=== PATIENT | female | born 1985 | race Caucasian/White ===

== ENCOUNTER 2016-07-01 00:43 | Emergency (ER) | payer OTHER ==
[~2016-07-01] VITALS: Ht 167.6 cm; Wt 83.1 kg
[2016-07-01 00:48] VITALS: TEMP 37; Ht 167.6 cm; Wt 83.1 kg
[2016-07-01 01:37] VITALS: BP 135/84; PULSE 94; O2SAT 98
--- NOTE | 2016-07-01 04:50 | EMERGENCY ROOM VISIT NOTE ---
History First contact with patient: 01:00 Chief Complaint: OTHER COMPLAINT Stated Complaint: AMNIOTIC FLUID IN MOUTH DURING DELIVERY--W/C History of Present Illness The patient is a 31 year old female who presents to the Emergency Room with complaints of bodily fluid exposure that occurred approximately 30 minutes ago. 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 She was assisting in a delivery , when amniotic fluid from the delivery splashed onto her face and into her mouth. The patient was not able to immediately remove herself from the situation due to the needing resuscitation. She was able to wash her face and flush her mouth within a few moments of the initial exposure. She did not swallow amniotic fluid. There is no exposure of the eyes or nose. The patient is up-to-date on her tetanus. She does not have additional complaints. Review of Systems More than 6 systems were reviewed and otherwise negative with the exception of history of present illness. Past Medical/Surgical History History of diabetes Family History No pertinent family history Social History Smoking Status: Never Smoker Occupation Status: employed Allergies Uncoded Allergies: NKA (Allergy, Unknown, 04/09/05) Physical Exam Vital Signs Date Time Temp Pulse Resp B/P Pulse Ox O2 Delivery O2 Flow Rate FiO2 07/01/16 01:37 94 16 135/84 98 07/01/16 00:48 37.0 123 18 139/90 96 Room Air Pain Rating (0-10): 0 Physical Exam VITALS: Vitals are noted on the nurse's note and reviewed by myself. Vital signs stable. GENERAL: Well-developed, well-nourished, white female, who is in no acute distress and resting comfortably. Patient is cooperative with the examination. HEAD: Normocephalic atraumatic. EARS: External ear normal. External auditory canals clear, tympanic membranes pearly goyal without erythema or effusion bilaterally. EYES: Pupils equal round and reactive to light and accommodation. Conjunctivae without injection, sclerae without icterus. Extraocular movements intact. NOSE: Patent, turbinates without inflammation or discharge. MOUTH: Mucous membranes moist. Tonsils are not enlarged. Pharynx without erythema, blood, or exudate. Uvula midline. Airway patent. NECK: Supple without nuchal rigidity. No lymphadenopathy. No thyromegaly. Cervical spine is nontender. HEART: Regular rate and rhythm without murmurs gallops or rubs. LUNGS: Clear to auscultation bilaterally without wheezes, rales or rhonchi. No retractions or accessory muscle use. Medical Decision & Procedures ED Course Physical exam and history were performed. Nursing notes and EMR were reviewed. Patient appears to have suffered a bodily fluid exposure. The patient had an amniotic fluid splash onto her face and mouth. The patient was able to irrigated and wash following the exposure. I discussed options of care with the patient. She does consent to HIV testing. She does not wish for postexposure prophylaxis. Appropriate paperwork and consents were signed. Blood draw was performed by the lab. The patient will need to follow with [facility] [employer] in the morning for further management. The source patient is currently under the care of Dr. Bender, and this was noted in the exposure paperwork. The patient was otherwise invited back to the ER with any new, worsening, or concerning symptoms. Her discomfort a 0/10 at the time of departure. The chart was completed utilizing [employer] Speech Voice Recognition Software. Grammatical errors, random word insertions, pronoun errors, and incomplete sentences are an occasional consequence of this system due to software limitations, ambient noise, and hardware issues. Any formal questions or concerns about the content, text, or information contained within the body of this dictation should be directly addressed to the provider for clarification. . Medical Decision Differential diagnosis includes, but is not limited to: Body fluid exposure Impression Primary Impression: Patient exposure to body fluids Departure Information Dispostion Home / Self-Care Condition GOOD Referrals Shahid [facility]on D.O.[facility]. (PCP) Forms WORK / SCHOOL INSTRUCTIONS, HOME CARE DOCUMENTATION FORM, IMPORTANT VISIT INFORMATION Patient Instructions A Signature Page, [facility] Additional Instructions You were seen and evaluated today on an emergency basis only. This is not a substitute for, or an effort to provide, complete comprehensive medical care. It is not possible to recognize and treat all injuries or illnesses in a single emergency department visit. For this reason it is recommended that you followup with Marielos Caruso of [facility] for results and further information. You are welcome to return to the emergency department anytime with new, worsening, or concerning symptoms.
[2016-07-12] MEDS ORDERED: LVMI SC (09:43)
[2016-07-12] MEDS ORDERED: GLC/500 PO (09:43)
[2016-07-12] MEDS ORDERED: NXM/40 PO (09:43)
[2016-07-12] MEDS ORDERED: INSU100I2 SC (09:43)
[2016-07-12] MEDS ORDERED: CYAN100020 PO (09:43)
[2016-07-12] MEDS ORDERED: CHOL100010 PO (09:43)
[2016-07-12] MEDS ORDERED: CHOL2000 PO (09:43)
== END 2016-07-01 01:38 | disposition home or self-care (01) ==
LOC: C.EDB 00:44 → C.EDA 01:38
DX: Z77.21 Contact with and (suspected) exposure to potentially hazardous body fluids (principal); E11.9 Type 2 diabetes mellitus without complications

== ENCOUNTER → 2016-07-10 | Outpatient (CLI) | payer OTHER ==
[~2016-07-10] MED LIST: CHOL100010 PO; CHOL2000 PO; CITA10TA8 PO; CITA20TA9 PO; CYAN100020 PO; GLC/500 PO; INSU100I2 SC; LVMI SC; NXM/40 PO; PROM25TA9 PO
--- NOTE | 2016-07-10 11:15 | DIAGNOSTIC IMAGING REPORT ---
BILIARY ULTRASOUND CLINICAL HISTORY: R10.13 Epigastric [id number] COMPARISON STUDY: No previous studies for comparison. FINDINGS: The pancreas appears normal as visualized. No hepatic masses are visualized. There is no ductal dilatation. The gallbladder appears sonographically normal. There is no right-sided hydronephrosis. The common bile duct measures 5 mm. IMPRESSION: Normal biliary ultrasound. Electronically signed by: Gaston Keen M.D. 07/10/2016 11:13 AM Dictated Date/Time: 07/10/2016 11:12 AM
== END | disposition home or self-care (01) ==
LOC: C.ULTRBC 10:22
PROVIDERS: ATTEND Family Medicine
DX: R10.13 Epigastric pain (principal)

== ENCOUNTER → 2016-07-15 | Day surgery (SDC) | payer OTHER ==
[2016-07-12 09:44] VITALS: Ht 170.2 cm; Wt 81.8 kg
[~2016-07-15] VITALS: Ht 170.2 cm; Wt 81.8 kg
[~2016-07-15] MED LIST changes: +ATROPINE SULFATE 0.1 MG/ML 5ML SYR IV PRN; +EpHEDrine SULFATE INJ 50 MG/ML AMP IV PRN; +LIDOCAINE HCL 2% 2 ML VIAL (20MG/ML) ONE; +ONDANSETRON INJ 2 MG/ML 2 ML VIAL ONE; +PROPOFOL IV EMULSION 10 MG/ML 20 ML VIAL IV ONE; +SODIUM CHLORIDE 0.9% 500ML 500 ML IV ONE
--- NOTE | 2016-07-15 12:07 | Endo History and Physical ---
History & Physical Date of Service: Jul 15, 2016. Chief Complaint: Epigastric abdominal pain Referring Physician: Talita History of Present Illness 31 yo CF who presents for EGD secondary to epigastric abdominal pain. Past Surgical History Hx Cardiac Surgery: No Hx Internal Defibrillator: No Hx Pacemaker: No Hx Abdominal Surgery: No Hx of Implantable Prosthesis: No Hx Post-Op Nausea and Vomiting: No Hx Cancer Surgery: No Hx Thoracic Surgery: No Hx Orthopedic: No Hx Urinary Tract Surgery: No Family History Colon CA Social History Smoking Status: Never Smoker Hx Substance Use: No Hx Alcohol Use: Yes (RARELY) Allergies Coded Allergies: Doxycycline (Verified Allergy, Unknown, GI UPSET, 07/15/16) Current Medications Reported Home Medications Medications Dose Route/Sig Max Daily Dose Days Date Category Dose Instructions Nexium (Esomeprazole Magnesium) 40 Mg Capcr 40 Mg PO QAM 07/12/16 Reported Vitamin B12 (Cyanocobalamin) 1,000 Mcg Tab 1 Tab PO QAM 07/12/16 Reported Vitamin D3 (Cholecalciferol) 2,000 Unit Cap 1 Cap PO QAM 90 07/12/16 Reported Humalog Kwikpen (Insulin Lispro (Human)) 100 Unit/Ml Inj 1 Dose SC AC 07/12/16 Reported USING SLIDING SCALE Levemir (Insulin Detemir) 100 Units/Ml Inj 8 Units SC HS 07/12/16 Reported Glucophage (Metformin Hcl) 500 Mg Tab 2 Tab PO BID 07/12/16 Reported Vital Signs Weight (Kilograms): 81.82 Height (Feet): 5 Height (Inches): 7 Date Time Temp Pulse Resp B/P Pulse Ox O2 Delivery O2 Flow Rate FiO2 07/15/16 11:52 37.1 101 20 115/87 100 Room Air Physical Exam General Appearance: WD/WN, no apparent distress Respiratory/Chest: Auscultation: breath sounds normal Cardiovascular: Heart Auscultation: RRR Abdomen: Bowel Sounds: normal Inspection & Palpation: soft, non-distended, no tenderness, guarding & rebound Assessment and Plan Assessment: 31 yo CF who presents for EGD secondary to epigastric abdominal pain. Plan: Proceed with EGD.
--- NOTE | 2016-07-15 12:36 | Discharge Instructions ---
Endoscopy Patient Instructions Date / Procedure(s) Performed Jul 15, 2016. EGD Allergy Information Coded Allergies: Doxycycline (Verified Adverse Reaction, Unknown, GI UPSET, 07/15/16) Discharge Date / Findings Jul 15, 2016. Normal EGD with biopsies of the gastric antrum and duodenum Medication Instructions Stopped Medication(s): metformin-last dose on friday OK to resume all medications today as prescribed. Reported Home Medications Medications Dose Route/Sig Max Daily Dose Days Date Category Dose Instructions Nexium (Esomeprazole Magnesium) 40 Mg Capcr 40 Mg PO QAM 07/12/16 Reported Vitamin B12 (Cyanocobalamin) 1,000 Mcg Tab 1 Tab PO QAM 07/12/16 Reported Vitamin D3 (Cholecalciferol) 2,000 Unit Cap 1 Cap PO QAM 90 07/12/16 Reported Humalog Kwikpen (Insulin Lispro (Human)) 100 Unit/Ml Inj 1 Dose SC AC 07/12/16 Reported USING SLIDING SCALE Levemir (Insulin Detemir) 100 Units/Ml Inj 8 Units SC HS 07/12/16 Reported Glucophage (Metformin Hcl) 500 Mg Tab 2 Tab PO BID 07/12/16 Reported Provider Instructions Activity Restrictions - No exercising or heavy lifting for 24 hours. - Do not drink alcohol the day of the procedure. - Do not drive a car or operate machinery until the day after the procedure. - Do not make any important decisions or sign important papers in 24 hours after the procedure. Following Day: - Return to full activity which may include returning to work/school. Diet Start your diet with liquids and light foods (jello, soup, juice, toast). Then eat your usual diet if not nauseated. Treatment For Common After Affects For mild abdominal pain, bloating, or excessive gas: - Rest - Eat lightly - Lie on right side Follow-Up Information Follow-up with [facility] as scheduled Anesthesia Information What You Should Know You have had a procedure that required some medicine to reduce anxiety and discomfort. This treatment is called moderate sedation. After receiving the treatment, you may be sleepy, but you will be able to breathe on your own. The effects of the treatment may last for several hours. Follow these instructions along with Activity/Diet recommendations noted above: * Do NOT do anything where dizziness or clumsiness would be dangerous. * Rest quietly at home today, then you can be up and about tomorrow. * Have a responsible person stay with you the rest of today. * You may have had an I.V. today. If so, you may take the dressing off later today. Recommendations Call your doctor if: * Trouble breathing * Continuous vomiting for more than 24 hours * Temperature above 101 degrees * Severe abdominal pain or bloating * Pain not relieved by pain medicine ordered * There is increased drainage or redness from any incision * A large amount of rectal bleeding greater than 2-3 tablespoons. (If you had a polyp/s removed or have hemorrhoids, a small amount of blood - from the rectum is to be expected.) * You have any unanswered questions or concerns. IN THE EVENT OF A SERIOUS EMERGENCY, GO TO THE NEAREST EMERGENCY ROOM Your discharge instructions were prepared by provider Andry Varela. Patient Instructions Signature Page Verito Olivares Patient (or Guardian) Signature/Date: I have read and understand the instructions given to me by my caregivers. Caregiver/RN/Doctor Signature/Date: The above-named patient and/or guardian has received patient instructions on this date. + Original Patient Signature Page (only) stays with chart. Please make copy for patient.
--- NOTE | 2016-07-15 12:40 | GI REPORT ---
Procedure Date: 07/15/2016 12:10 PM Procedure: Upper GI endoscopy Indications: Epigastric abdominal pain, Nausea Medicines: Monitored Anesthesia Care Complications: No immediate complications. Estimated Blood Loss: Estimated blood loss: none. Procedure: Pre-Anesthesia Assessment: - Prior to the procedure, a History and Physical was performed, and patient medications and allergies were reviewed. The patient's tolerance of previous anesthesia was also reviewed. The risks and benefits of the procedure and the sedation options and risks were discussed with the patient. All questions were answered, and informed consent was obtained. Prior Anticoagulants: The patient has taken no previous anticoagulant or antiplatelet agents. ASA Grade Assessment: II - A patient with mild systemic disease. After reviewing the risks and benefits, the patient was deemed in satisfactory condition to undergo the procedure. After obtaining informed consent, the endoscope was passed under direct vision. Throughout the procedure, the patient's blood pressure, pulse, and oxygen saturations were monitored continuously. The scope was introduced through the mouth, and advanced to the second part of duodenum. The upper GI endoscopy was accomplished without difficulty. The patient tolerated the procedure well. Findings: The examined esophagus was normal. The entire examined stomach was normal. Biopsies were taken with a cold forceps for Helicobacter pylori testing. The examined duodenum was normal. Biopsies for histology were taken with a cold forceps for evaluation of celiac disease. Impression: - Normal esophagus. - Normal stomach. Biopsied. - Normal examined duodenum. Biopsied. Recommendation: - Resume previous diet. - Continue present medications. - Await pathology results. - Return to primary care physician as previously scheduled. Andry Varela DO 07/15/2016 12:38:53 PM This report has been signed electronically. Note Initiated On: 07/15/2016 12:10 PM
--- NOTE | 2016-07-15 13:00 | Anesthesiology Progress Note ---
Anesthesia Post Op Note Date & Time Jul 15, 2016 at 12:59 Vital Signs Pain Intensity: 0 Vital Signs Past 12 Hours Date Time Temp Pulse Resp B/P Pulse Ox O2 Delivery O2 Flow Rate FiO2 07/15/16 11:52 37.1 101 20 115/87 100 Room Air Notes Mental Status: alert / awake / arousable, participated in evaluation Pt Amnestic to Procedure: Yes Nausea / Vomiting: adequately controlled Pain: adequately controlled Airway Patency, RR, SpO2: stable & adequate BP & HR: stable & adequate Hydration State: stable & adequate Anesthetic Complications: no major complications apparent
[2016-07-15 13:10] VITALS: BP 116/73; PULSE 87; O2SAT 97
== END | disposition home or self-care (01) ==
LOC: C.GI 11:30
PROVIDERS: ATTEND Internal Medicine
DX: K29.50 Unspecified chronic gastritis without bleeding (principal); R10.13 Epigastric pain; R14.0 Abdominal distension (gaseous); Z80.0 Family history of malignant neoplasm of digestive organs

== ENCOUNTER → 2016-09-03 | Outpatient (CLI) | payer OTHER ==
[~2016-09-03] MED LIST changes: -ATROPINE SULFATE 0.1 MG/ML 5ML SYR IV PRN; -CHOL100010 PO; -EpHEDrine SULFATE INJ 50 MG/ML AMP IV PRN; -LIDOCAINE HCL 2% 2 ML VIAL (20MG/ML) ONE; -ONDANSETRON INJ 2 MG/ML 2 ML VIAL ONE; -PROPOFOL IV EMULSION 10 MG/ML 20 ML VIAL IV ONE; -SODIUM CHLORIDE 0.9% 500ML 500 ML IV ONE
[2016-09-03 10:11] LABS: ESTIMATED AVERAGE GLUCOSE 126 mg/dl; HA1C FLAG Normal (Normal)
== END | disposition home or self-care (01) ==
LOC: C.LAB1850 07:32
PROVIDERS: ATTEND Internal Medicine Endocrinology, Diabetes & Metabolism
DX: E10.9 Type 1 diabetes mellitus without complications (principal)

== ENCOUNTER 2016-09-26 05:42 | Emergency (ER) | payer OTHER ==
[~2016-09-26] VITALS: Ht 170.2 cm; Wt 74.3 kg
[~2016-09-26 05:42] MED LIST changes: -CITA10TA8 PO; -CITA20TA9 PO; -PROM25TA9 PO
[2016-09-26 05:50] VITALS: Ht 170.2 cm; Wt 74.3 kg
[2016-09-26] MEDS ORDERED: SODIUM CHLORIDE 0.9% 1000ML 2,000 ML IV STA (06:06)
[2016-09-26] MEDS ORDERED: ONDANSETRON INJ 2 MG/ML 2 ML VIAL IV STA ×2 (06:06→07:02)
[2016-09-26 06:38] LABS: BASO % 0.2 %; BASO ABS # 0.03 K/uL (0-0.2); COMPLETE YES; EOS % 0.1 %; HEMATOCRIT 42.3 % (37-47); IG% 0.3 %; LYMPH % 4.6 %; LYMPH ABS # 0.67 K/uL (1.2-3.4); MEAN CELL VOLUME 91.6 fL (80-100); MEAN CORPUSCULAR HEMOGLOBIN 31.8 pg (25-34); MEAN CORPUSCULAR HGB CONC 34.8 g/dl (32-36); MEAN PLATELET VOLUME 10.2 fL (7.4-10.4); MONO % 2.9 %; NEUT % 91.9 %; PLATELET COUNT 347 K/uL (130-400); RED BLOOD COUNT 4.62 M/uL (4.2-5.4); WHITE BLOOD COUNT 14.64 K/uL (4.8-10.8)
[2016-09-26] MEDS ORDERED: CITA10TA8 PO (06:47)
[2016-09-26 06:57] LABS: BUN/CREATININE RATIO 31.7 (10-20); CALCIUM 8.6 mg/dl (8.5-10.1); CREATININE 0.75 mg/dl (0.60-1.20); MAGNESIUM 1.9 mg/dl (1.8-2.4); POTASSIUM 3.8 mmol/L (3.5-5.1)
--- NOTE | 2016-09-26 07:00 | DIAGNOSTIC IMAGING REPORT ---
ABDOMEN 2VIEW W/PA CHEST RTN CLINICAL HISTORY: Nausea, vomiting, diarrhea, abdominal pain. COMPARISON STUDY: No previous studies for comparison. FINDINGS: The erect chest reveals no evidence of free air. There is no evidence of focal pulmonary consolidation.] Erect and supine views of the abdomen reveal no abnormally dilated loops of large or small bowel. There are no transition zone to indicate bowel obstruction. There is scattered colonic air-fluid levels. This is a nonspecific finding but may indicate a diarrheal state. IMPRESSION: No evidence of bowel obstruction. No evidence of free air. Electronically signed by: Gaston Keen M.D. 09/26/2016 6:59 AM Dictated Date/Time: 09/26/2016 6:58 AM
[2016-09-26 07:09] LABS: ALB/GLOB RATIO 1.4 (0.9-2); THYROID STIMULATING HORMONE 1.01 uIu/ml (0.300-4.500)
[2016-09-26] MEDS ORDERED: KETOROLAC TROMETHAMINE 30 MG/ML VIAL IV STA (07:13)
[2016-09-26 07:35] LABS: URINE APPEARANCE CLOUDY (CLEAR); URINE COLOR DK YELLOW; URINE EPITHELIAL CELL AUTO >30 /lpf (0-5); URINE NITRITE NEG (NEG); URINE PH 5.5 (4.5-7.5); URINE SPECIFIC GRAVITY 1.035 (1.000-1.030); UROBILINOGEN NEG (NEG); ZZUR CULT IF INDIC CLEAN CATCH YES
[2016-09-26 07:42] LABS: MANUAL MICROSCOPIC REQUIRED? NO; REVIEW REQ? YES; URINE BILIRUBIN NEG (NEG)
[2016-09-26] MEDS ORDERED: SODIUM CHLORIDE 0.9% 1000ML 1,000 ML IV STA (07:44)
[2016-09-26 07:55] LABS: URINE MUCUS PRESENT (NONE PRSENT)
[2016-09-26] MEDS ORDERED: PANTOprazole INJ 40 MG in SYRINGE 0 ML IV ONE (08:00)
--- NOTE | 2016-09-26 08:07 | EMERGENCY ROOM VISIT NOTE ---
History First contact with patient: 05:58 Chief Complaint: FLU LIKE SX Stated Complaint: NAUSEA,VOMITING,DIARRHEA History of Present Illness The patient is a 31 year old female who presents to the Emergency Department by private vehicle for evaluation of her nausea, vomiting, diarrhea, and abdominal pain. She also reports body aches and pains. She's been lightheaded as well. Her symptoms started at 3 PM yesterday with bloating and cramping in her abdomen. She has since developed nausea, vomiting, and diarrhea. She does have history of diabetes. She did not take her metformin or insulin yesterday as she was concerned that her blood sugars would be running too low from decreased by mouth intake. Her blood sugars have actually been running in the 130s which is high for her. She denies any previous abdominal surgeries. She does report history of gastritis for which she had an EGD within the past year. The patient rates her current discomfort is 7/10. She tried oral Zofran today , but she reports vomiting medication back up. The patient denies any fevers, chills, headaches, chest pain, palpitations, short of breath, hematochezia, melena, hematuria, or dysuria. She took a test yesterday which was negative. Review of Systems A complete 10-point Review of Systems was discussed with the patient, with pertinent positives and negatives listed in the History of Present Illness. All remaining Review of Systems questions can be considered negative unless otherwise specified. Social History Smoking Status: Never Smoker Smokeless Tobacco Use: No Alcohol Use: none Drug Use: none Marital Status: Housing Status: lives with significant other Occupation Status: employed Current/Historical Medications Scheduled Cholecalciferol (Vitamin D3), 1 CAP PO QAM Citalopram Hydrobromide (Celexa), 10 MG PO DAILY Cyanocobalamin (Vitamin B12), 1 TAB PO QAM Esomeprazole Magnesium (Nexium), 40 MG PO QAM Insulin Detemir (Levemir), 8 UNITS SC HS Insulin Lispro (Human) (Humalog Kwikpen), 1 DOSE SC AC Metformin Hcl (Glucophage), 2 TAB PO BID Allergies Coded Allergies: Doxycycline (Verified Adverse Reaction, Unknown, GI UPSET, 09/26/16) Physical Exam Vital Signs Date Time Temp Pulse Resp B/P Pulse Ox O2 Delivery O2 Flow Rate FiO2 09/26/16 07:13 125 18 101/51 96 Room Air 09/26/16 05:50 36.8 141 20 107/66 97 Room Air Pain Rating (0-10): 7 Physical Exam VITAL SIGNS - Vital signs and nursing notes were reviewed. GENERAL - 31-year-old female appearing her stated age who is in no acute distress. Communicates well with provider and answers questions appropriately. HEAD - NC/AT. EYES - PERRL with EOMI bilaterally. Sclera anicteric. Palpebral conjunctiva pink and moist with no injection noted. EARS - No deformities of external structures noted on gross examination bilaterally. No pain elicited with palpation of the tragus bilaterally. External auditory canals without discharge or otorrhea. Tympanic membranes pearly goyal without retraction or bulging. NOSE - Midline and without cyanosis. No epistaxis or purulent drainage noted. Septum midline without deviation or septal hematoma noted. MOUTH/OROPHARYNX - Without perioral cyanosis. Buccal mucosa pink and moist and without leukoplakia. Tongue midline with equal elevation of palate bilaterally. No tonsillar hypertrophy, erythema, or exudates noted. dentition noted. NECK - Neck with FROM. Supple to palpation. No nuchal rigidity. LUNGS - Chest wall symmetric without accessory muscle use, intercostals retractions, or central cyanosis. Normal vesicular breath sounds CTA B/L. No wheezes, rales, or rhonchi appreciated. CARDIAC - RRR with S1/S2. No murmur, rubs, or gallops appreciated. ABDOMEN - Abdominal contour flat and without pulsations or visible masses. BS normoactive all four quadrants. No tenderness to palpation appreciated throughout. No guarding. No Rebound Tenderness. Negative Rovsing's. Negative Caldwell's. No palpable masses, hepatosplenomegaly, or ascites noted. PSYCH - A&Ox3 and cooperates fully with examiner. Pt is very pleasant and interacts well with examiner. Medical Decision & Procedures ER Provider Diagnostic Interpretation: Radiological imaging and reports were reviewed by myself. Radiologist's Interpretation as follows: ABDOMEN 2VIEW W/PA CHEST RTN CLINICAL HISTORY: Nausea, vomiting, diarrhea, abdominal pain. COMPARISON STUDY: No previous studies for comparison. FINDINGS: The erect chest reveals no evidence of free air. There is no evidence of focal pulmonary consolidation.] Erect and supine views of the abdomen reveal no abnormally dilated loops of large or small bowel. There are no transition zone to indicate bowel obstruction. There is scattered colonic air-fluid levels. This is a nonspecific finding but may indicate a diarrheal state. IMPRESSION: No evidence of bowel obstruction. No evidence of free air. Laboratory Results 09/26/16 05:30 Red Blood Count 4.62, Mean Corpuscular Volume 91.6, Mean Corpuscular Hemoglobin 31.8, Mean Corpuscular Hemoglobin Concent 34.8, Mean Platelet Volume 10.2, Neutrophils (%) (Auto) 91.9, Lymphocytes (%) (Auto) 4.6, Monocytes (%) (Auto) 2.9, Eosinophils (%) (Auto) 0.1, Basophils (%) (Auto) 0.2, Neutrophils # (Auto) 13.46, Lymphocytes # (Auto) 0.67, Monocytes # (Auto) 0.42, Eosinophils # (Auto) 0.02, Basophils # (Auto) 0.03 09/26/16 05:30 Test 09/26/16 05:30 09/26/16 06:06 09/26/16 06:30 White Blood Count 14.64 K/uL (4.8-10.8) Red Blood Count 4.62 M/uL (4.2-5.4) Hemoglobin 14.7 g/dL (12.0-16.0) Hematocrit 42.3 % (37-47) Mean Corpuscular Volume 91.6 fL (80-100) Mean Corpuscular Hemoglobin 31.8 pg (25-34) Mean Corpuscular Hemoglobin Concent 34.8 g/dl (32-36) Platelet Count 347 K/uL (130-400) Mean Platelet Volume 10.2 fL (7.4-10.4) Neutrophils (%) (Auto) 91.9 % Lymphocytes (%) (Auto) 4.6 % Monocytes (%) (Auto) 2.9 % Eosinophils (%) (Auto) 0.1 % Basophils (%) (Auto) 0.2 % Neutrophils # (Auto) 13.46 K/uL (1.4-6.5) Lymphocytes # (Auto) 0.67 K/uL (1.2-3.4) Monocytes # (Auto) 0.42 K/uL (0.11-0.59) Eosinophils # (Auto) 0.02 K/uL (0-0.5) Basophils # (Auto) 0.03 K/uL (0-0.2) RDW Standard Deviation 39.6 fL (36.4-46.3) RDW Coefficient of Variation 11.7 % (11.5-14.5) Immature Granulocyte % (Auto) 0.3 % Immature Granulocyte # (Auto) 0.04 K/uL (0.00-0.02) Anion Gap 11.0 mmol/L (3-11) Est Creatinine Clear Calc Drug Dose 116.5 ml/min Estimated GFR () 124.8 Estimated GFR (Non- 107.7 BUN/Creatinine Ratio 31.7 (10-20) Calcium Level 8.6 mg/dl (8.5-10.1) Magnesium Level 1.9 mg/dl (1.8-2.4) Total Bilirubin 0.6 mg/dl (0.2-1) Aspartate Amino Transf (AST/SGOT) 22 U/L (15-37) Alanine Aminotransferase (ALT/SGPT) 40 U/L (12-78) Alkaline Phosphatase 73 U/L (45-117) Total Protein 8.6 gm/dl (6.4-8.2) Albumin 5.0 gm/dl (3.4-5.0) Globulin 3.6 gm/dl (2.5-4.0) Albumin/Globulin Ratio 1.4 (0.9-2) Lipase 103 U/L (73-393) Thyroid Stimulating Hormone (TSH) 1.010 uIu/ml (0.300-4.500) Urine Color DK YELLOW Urine Appearance CLOUDY (CLEAR) Urine pH 5.5 (4.5-7.5) Urine Specific [place] 1.035 (1.000-1.030) Urine Protein 2+ (NEG) Urine Glucose (UA) NEG (NEG) Urine Ketones 4+ (NEG) Urine Occult Blood NEG (NEG) Urine Nitrite NEG (NEG) Urine Bilirubin NEG (NEG) Urine Urobilinogen NEG (NEG) Urine Leukocyte Esterase NEG (NEG) Urine WBC (Auto) 5-10 /hpf (0-5) Urine RBC (Auto) 0-4 /hpf (0-4) Urine Hyaline Casts (Auto) >30 /lpf (0-5) Urine Epithelial Cells (Auto) >30 /lpf (0-5) Urine Bacteria (Auto) 2+ (NEG) Urine Renal Epithelial Cells /lpf (0-5) Urine Pathogenic Casts /lpf (0) Urine Mucus PRESENT (NONE PRSENT) Medications Administered Medications (Trade) Dose Ordered Sig/Amie Route Start Time Stop Time Status Last Admin Dose Admin Sodium Chloride (Nss 1000ml) 2,000 ml @ 999 mls/hr Q2H1M STAT IV 09/26/16 06:06 09/26/16 08:06 09/26/16 06:33 999 MLS/HR Ondansetron HCl (Zofran Inj) 4 mg NOW STAT IV 09/26/16 06:06 09/26/16 06:09 DC 09/26/16 06:33 4 MG Ondansetron HCl (Zofran Inj) 4 mg NOW STAT IV 09/26/16 07:02 09/26/16 07:03 DC 09/26/16 07:11 4 MG Ketorolac Tromethamine (Toradol Inj) 30 mg NOW STAT IV 09/26/16 07:13 09/26/16 07:14 DC 09/26/16 07:22 30 MG ED Course Patient was seen and evaluated by myself. Labs were drawn, saline lock in place. The patient was hydrated with a 2000 mL normal saline bolus. She received IV Zofran. Obstruction series was obtained. Laboratory results demonstrate a mild leukocytosis. The patient is not anemic. There are no significant electrolyte abnormalities. Urinalysis demonstrated plus for ketones. She was hydrated with an additional 1000 mL normal saline. The patient was reevaluated and reports persistent nausea. She was treated with an additional 4 mg Zofran and IV Protonix as well as IV Toradol. Patient was educated on laboratory results and imaging studies. At this time, the patient is pending continued hydration. The patient was signed out to RAJESH Nova pending IV hydration. Please refer to his note for disposition and planning. Medical Decision Given the patient's presentation and exam findings, I did elect to perform the above-mentioned workup. The patient presents today with nausea, vomiting, and diarrhea. She has no fever. She does have a mild leukocytosis. Her abdomen is soft and nontender to palpation. The patient does have a history of diabetes. Addition, she presents with a gastroenteritis. She is unable to provide a stool sample while in the emergency department. She does not appear to be acidotic per labs. Her urine does demonstrate plus for ketones. She is likely dehydrated secondary to an acute gastroenteritis. Her leukocytosis is likely secondary to stress from this infection. She does not appear to be in DKA. The patient was copiously hydrated. She is pending fluid hydration as well as being evaluated for persistent nausea. Please refer to my colleagues note for disposition and plan. IMPRESSION: Lower Abdominal Pain In the evaluation and treatment of this patient, the following differential diagnoses were considered: Appendicitis, Diverticulitis, Diverticulosis, Colitis , Ischemic Colitis, Inflammatory Bowel Disease, Irritable Bowel Disease, Ovarian Torsion, , DKA Kidney Stone, Pyelonephritis, Hydronephrosis, Cholecystitis, Ascending Cholangitis, Choledocholithiasis, GERD. Impression Primary Impression: Nausea vomiting and diarrhea Departure Information Dispostion Still a Patient Condition GOOD Referrals Shahid Sanon, Winsome.[facility].Int[facility]. (PCP) Patient Instructions My [facility]
[2016-09-26] MEDS ORDERED: PROMETHAZINE HCL INJ 25 MG in SODIUM CHLORIDE 0.9% 50ML 50 ML IV STA (08:52)
[2016-09-26] MEDS ORDERED: MoRPHine SULFATE 4 MG/ML 1 ML CARP\\VIAL IV STA (08:52)
[2016-09-26 09:09] VITALS: TEMP 37
[2016-09-26] MEDS ORDERED: PROM25TA9 PO (10:10)
[2016-09-26 10:32] VITALS: BP 108/51; PULSE 109; O2SAT 96
--- NOTE | 2016-09-26 12:15 | EMERGENCY ROOM VISIT NOTE ---
ED Visit Note First contact with patient: 08:10 31-year-old female whose care was transferred to nc from Ruddy Cormier PA-C at change of shift. The patient presents with complaint of nausea, vomiting and diarrhea. At the time of transfer of care, the patient was being treated for symptoms with IV hydration. Labs were reviewed: Results Past 24 Hours Test 09/26/16 05:30 09/26/16 06:30 Range/Units White Blood Count 14.64 4.8-10.8 K/uL Red Blood Count 4.62 4.2-5.4 M/uL Hemoglobin 14.7 12.0-16.0 g/dL Hematocrit 42.3 37-47 % Mean Corpuscular Volume 91.6 80-100 fL Mean Corpuscular Hemoglobin 31.8 25-34 pg Mean Corpuscular Hemoglobin Concent 34.8 32-36 g/dl Platelet Count 347 130-400 K/uL Mean Platelet Volume 10.2 7.4-10.4 fL Neutrophils (%) (Auto) 91.9 % Lymphocytes (%) (Auto) 4.6 % Monocytes (%) (Auto) 2.9 % Eosinophils (%) (Auto) 0.1 % Basophils (%) (Auto) 0.2 % Neutrophils # (Auto) 13.46 1.4-6.5 K/uL Lymphocytes # (Auto) 0.67 1.2-3.4 K/uL Monocytes # (Auto) 0.42 0.11-0.59 K/uL Eosinophils # (Auto) 0.02 0-0.5 K/uL Basophils # (Auto) 0.03 0-0.2 K/uL RDW Standard Deviation 39.6 36.4-46.3 fL RDW Coefficient of Variation 11.7 11.5-14.5 % Immature Granulocyte % (Auto) 0.3 % Immature Granulocyte # (Auto) 0.04 0.00-0.02 K/uL Sodium Level 137 136-145 mmol/L Potassium Level 3.8 3.5-5.1 mmol/L Chloride Level 102 98-107 mmol/L Carbon Dioxide Level 24 21-32 mmol/L Anion Gap 11.0 3-11 mmol/L Blood Urea Nitrogen 24 7-18 mg/dl Creatinine 0.75 0.60-1.20 mg/dl Est Creatinine Clear Calc Drug Dose 116.5 ml/min Estimated GFR () 124.8 Estimated GFR (Non- 107.7 BUN/Creatinine Ratio 31.7 10-20 Random Glucose 171 70-99 mg/dl Calcium Level 8.6 8.5-10.1 mg/dl Magnesium Level 1.9 1.8-2.4 mg/dl Total Bilirubin 0.6 0.2-1 mg/dl Aspartate Amino Transf (AST/SGOT) 22 15-37 U/L Alanine Aminotransferase (ALT/SGPT) 40 12-78 U/L Alkaline Phosphatase 73 45-117 U/L Total Protein 8.6 6.4-8.2 gm/dl Albumin 5.0 3.4-5.0 gm/dl Globulin 3.6 2.5-4.0 gm/dl Albumin/Globulin Ratio 1.4 0.9-2 Lipase 103 73-393 U/L Thyroid Stimulating Hormone (TSH) 1.010 0.300-4.500 uIu/ml Urine Color DK YELLOW Urine Appearance CLOUDY CLEAR Urine pH 5.5 4.5-7.5 Urine Specific [place] 1.035 1.000-1.030 Urine Protein 2+ NEG Urine Glucose (UA) NEG NEG Urine Ketones 4+ NEG Urine Occult Blood NEG NEG Urine Nitrite NEG NEG Urine Bilirubin NEG NEG Urine Urobilinogen NEG NEG Urine Leukocyte Esterase NEG NEG Urine WBC (Auto) 5-10 0-5 /hpf Urine RBC (Auto) 0-4 0-4 /hpf Urine Hyaline Casts (Auto) >30 0-5 /lpf Urine Epithelial Cells (Auto) >30 0-5 /lpf Urine Bacteria (Auto) 2+ NEG Urine Renal Epithelial Cells 0-5 /lpf Urine Pathogenic Casts 0 /lpf Urine Mucus PRESENT NONE PRSENT Urine Test NEG NEG Microbiology Results 09/26/16 Urine Culture, Received Pending Abdomen instructions series was also performed and was normal: ABDOMEN 2VIEW W/PA CHEST RTN CLINICAL HISTORY: Nausea, vomiting, diarrhea, abdominal pain. COMPARISON STUDY: No previous studies for comparison. FINDINGS: The erect chest reveals no evidence of free air. There is no evidence of focal pulmonary consolidation.] Erect and supine views of the abdomen reveal no abnormally dilated loops of large or small bowel. There are no transition zone to indicate bowel obstruction. There is scattered colonic air-fluid levels. This is a nonspecific finding but may indicate a diarrheal state. IMPRESSION: No evidence of bowel obstruction. No evidence of free air. The patient did request something more for pain and nausea after I assumed care. The patient was administered morphine 4 mg and Phenergan 25 mg IVP. The patient did have improvement of her symptoms, and felt well enough to go home. The patient was provided additional verbal and written instructions, including liquid diet, slowly advancing as tolerated. The patient was provided a prescription for Phenergan to prevent nausea. She was instructed to follow-up with her PCP if symptoms are not improving within the next 2-3 days. Return to the emergency department for inability to remain hydrated or persistent vomiting. The patient was happy with plan of care, and voiced understanding of all discharge instructions. MEDICAL DECISION MAKING: Patient presents with shortness of nausea, vomiting and diarrhea. The speck gastroenteritis. Remaining labs are not suggestive of hepatitis, cholecystitis or pancreatitis. X-rays do not show any evidence for obstruction or free air. Abdomen exam is benign, therefore I do not suspect a surgical abdomen. DIAGNOSIS: Gastroenteritis
== END 2016-09-26 10:34 | disposition home or self-care (01) ==
LOC: C.EDB 05:43 → C.EDA 10:34
DX: K52.9 Noninfective gastroenteritis and colitis, unspecified (principal); D72.829 Elevated white blood cell count, unspecified; R11.0 Nausea; E11.9 Type 2 diabetes mellitus without complications; Z79.4 Long term (current) use of insulin; Z79.84 Long term (current) use of oral hypoglycemic drugs; Z88.8 Allergy status to other drugs, medicaments and biological substances

== ENCOUNTER → 2016-10-14 | Outpatient (CLI) | payer OTHER ==
[~2016-10-14] MED LIST changes: +CITA10TA8 PO; +CITA20TA9 PO; +PROM25TA9 PO
[2016-10-14 10:05] LABS: BLOOD UREA NITROGEN 15 mg/dl (7-18); CALCIUM 8.3 mg/dl (8.5-10.1); CARBON DIOXIDE 28 mmol/L (21-32); CHLORIDE 107 mmol/L (98-107); CREATININE 0.57 mg/dl (0.60-1.20); GLUCOSE 77 mg/dl (70-99); POTASSIUM 3.9 mmol/L (3.5-5.1); SODIUM 144 mmol/L (136-145)
[2016-10-14 10:10] LABS: ALB/GLOB RATIO 1.3 (0.9-2); ALKALINE PHOSPHATASE 44 U/L (45-117); ALT/SGPT 20 U/L (12-78); AST/SGOT 11 U/L (15-37); CHOLESTEROL 157 mg/dl (0-200); CHOLESTEROL/HDL RATIO 3.7; HDL CHOLESTEROL 43 mg/dl; LDL CHOLESTEROL CALCULATED 97 mg/dl; TRIGLYCERIDES 84 mg/dl (0-150); VERY LOW DENSITY LIPOPROT CALC 17 mg/dl
== END | disposition home or self-care (01) ==
LOC: C.LAB 07:11
PROVIDERS: ATTEND Family Medicine
DX: E10.9 Type 1 diabetes mellitus without complications (principal); E78.5 Hyperlipidemia, unspecified

== ENCOUNTER 2016-11-01 13:25 | Emergency (ER) | payer OTHER ==
[~2016-11-01] VITALS: Ht 170.2 cm; Wt 77.0 kg
[~2016-11-01 13:25] MED LIST changes: -CITA20TA9 PO
[2016-11-01 13:31] VITALS: Ht 170.2 cm; Wt 77.0 kg
[2016-11-01 14:22] VITALS: BP 125/80; PULSE 90; TEMP 36.6; O2SAT 97
--- NOTE | 2016-11-02 18:31 | EMERGENCY ROOM VISIT NOTE ---
ED Visit Note First contact with patient: 13:38 Chief Complaint: I stuck myself with a pair of scissors. History of Present Illness: Ms. Wick is a 31-year-old white female who ambulates into the emergency department with complaints of injuring herself on a pair of scissors. 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 She was helping others clean up instrument traced from a surgery she did not participate in. She reports while lifting up a tray she came in contact with a pair of surgical scissors. She does report she was gloved but did not observe any hole in the glove after the injury. She reports she took off the glove and there was no bleeding and she immediately cleansed the area with Betadine. She was sent to the ED for evaluation of possible body fluid exposure. Currently she reports she is not having any symptoms. She is not having any pain in the area of her possible injury. Additionally she reports she does not remember seeing any blood on the instrument but reports she did not specifically look for any blood or body fluids. Review of Systems: As noted above in history of present illness. Past Medical History: Diabetes, hypertension, GERD, ITP, status post EGD, wisdom teeth extraction. Current Medications: Medications Dose Route/Sig Max Daily Dose Days Date Category Dose Instructions Celexa (Citalopram Hydrobromide) 10 Mg Tab 10 Mg PO DAILY 09/26/16 Reported Nexium (Esomeprazole Magnesium) 40 Mg Capcr 40 Mg PO QAM 07/12/16 Reported Vitamin B12 (Cyanocobalamin) 1,000 Mcg Tab 1 Tab PO HS 07/12/16 Reported Vitamin D3 (Cholecalciferol) 2,000 Unit Cap 1 Cap PO QAM 90 07/12/16 Reported Humalog Kwikpen (Insulin Lispro (Human)) 100 Unit/Ml Inj 1 Dose SC AC 07/12/16 Reported USING SLIDING SCALE Levemir (Insulin Detemir) 100 Units/Ml Inj 8 Units SC HS 07/12/16 Reported Glucophage (Metformin Hcl) 500 Mg Tab 2 Tab PO BID 07/12/16 Reported Allergies to Medications: Doxycycline. Social History: Patient is currently employed; she feels safe in her home environment; Physical Examination: Vital Signs: Date Time Temp Pulse Resp B/P Pulse Ox O2 Delivery O2 Flow Rate FiO2 11/01/16 14:22 36.6 90 16 125/80 97 11/01/16 13:31 36.6 90 16 125/80 97 Room Air GENERAL: 31-year-old female in no acute distress, nontoxic-appearing, afebrile and hemodynamically stable. Patient is slightly anxious. NEUROLOGICAL: Awake, alert and oriented to person, place and time. Answering questions appropriately and following commands. SKIN: Warm, dry and pink. Left Hand: Patient reports her exposure to the scissors were over the palmar aspect of the hand. On close examination under magnifying glasses I do not see any breaks the skin and there is no obvious bleeding or contusion. ED Course: Patient is assessed as noted above. This was not felt to be a significant exposure. Patient was educated about tonight's findings and instructed on her treatment plan; she verbalizes understanding and agreement with this plan. Clinical Impression: Evaluation for possible exposure to body fluids. Disposition: Patient discharged home in stable condition; prior to departure she remained pain and symptom-free. Plan: Patient was encouraged to keep the area clean and watch for any possible signs of infection. Patient was encouraged to return to employee health for any signs of infection and be reevaluated for possible body fluid exposure.
== END 2016-11-01 14:23 | disposition home or self-care (01) ==
LOC: C.EDB 13:28 → C.EDD 14:23
DX: Z04.9 Encounter for examination and observation for unspecified reason (principal); I10 Essential (primary) hypertension; E11.9 Type 2 diabetes mellitus without complications; K21.9 Gastro-esophageal reflux disease without esophagitis; Z79.4 Long term (current) use of insulin; Z79.84 Long term (current) use of oral hypoglycemic drugs; Z79.899 Other long term (current) drug therapy; Z88.3 Allergy status to other anti-infective agents

== ENCOUNTER → 2016-12-09 | Outpatient (CLI) | payer OTHER ==
[~2016-12-09] MED LIST changes: +CITA20TA9 PO; -PROM25TA9 PO
[2016-12-09 10:56] LABS: ESTIMATED AVERAGE GLUCOSE 123 mg/dl; HA1C FLAG Normal (Normal)
== END | disposition home or self-care (01) ==
LOC: C.LAB 09:15
PROVIDERS: ATTEND Physician Assistant
DX: E10.9 Type 1 diabetes mellitus without complications (principal)

== ENCOUNTER → 2016-12-12 | Outpatient (CLI) | payer OTHER ==
[2016-12-12 14:35] LABS: THYROID STIMULATING HORMONE 1.71 uIu/ml (0.300-4.500)
== END | disposition home or self-care (01) ==
LOC: C.LAB 11:26
PROVIDERS: ATTEND Physician Assistant
DX: E04.0 Nontoxic diffuse goiter (principal)

== ENCOUNTER → 2016-12-14 | Outpatient (CLI) | payer OTHER | END | disposition home or self-care (01) | LOC: C.LABBC 09:15 | PROVIDERS: ATTEND Obstetrics & Gynecology | DX: N91.2 Amenorrhea, unspecified (principal) ==

== ENCOUNTER → 2016-12-16 | Outpatient (CLI) | payer OTHER | END | disposition home or self-care (01) | LOC: C.LAB 13:08 | PROVIDERS: ATTEND Obstetrics & Gynecology | DX: Z34.90 Encounter for supervision of normal pregnancy, unspecified, unspecified trimester (principal) ==

== ENCOUNTER → 2017-01-01 | Outpatient (CLI) | payer OTHER ==
[2017-01-01 17:20] LABS: URINE APPEARANCE CLEAR (CLEAR); URINE BILIRUBIN NEG (NEG); URINE COLOR YELLOW; URINE NITRITE NEG (NEG); URINE PH 5.5 (4.5-7.5); URINE SPECIFIC GRAVITY 1.016 (1.000-1.030); UROBILINOGEN NEG (NEG)
[2017-01-01 17:28] LABS: REVIEW REQ? NO
[2017-01-01 17:29] LABS: MANUAL MICROSCOPIC REQUIRED? NO
== END | disposition home or self-care (01) ==
LOC: C.LABSPEC 16:29
PROVIDERS: ATTEND Obstetrics & Gynecology
DX: O24.919 Unspecified diabetes mellitus in pregnancy, unspecified trimester (principal)

== ENCOUNTER → 2017-01-23 | Outpatient (CLI) | payer OTHER ==
[2017-01-25 02:56] LABS: CHLAMYDIA TRACH RNA*** NOT DETECTED (NOT DETECTED); GC (NEIS GONORRHOEAE)RNA** NOT DETECTED (NOT DETECTED)
== END | disposition home or self-care (01) ==
LOC: C.LABSPEC 11:13
PROVIDERS: ATTEND Obstetrics & Gynecology
DX: Z34.90 Encounter for supervision of normal pregnancy, unspecified, unspecified trimester (principal)

== ENCOUNTER → 2017-01-23 | Outpatient (CLI) | payer OTHER | END | disposition home or self-care (01) | LOC: C.PAPS 11:33 | PROVIDERS: ATTEND Obstetrics & Gynecology | DX: Z34.01 Encounter for supervision of normal first pregnancy, first trimester (principal) ==

== ENCOUNTER 2017-01-24 09:48 | Emergency (ER) | payer OTHER ==
[~2017-01-24] VITALS: Ht 170.2 cm; Wt 79.4 kg
[~2017-01-24 09:48] MED LIST changes: -CITA20TA9 PO
[2017-01-24 09:53] VITALS: TEMP 36.7; Ht 170.2 cm; Wt 79.4 kg
[2017-01-24] MEDS ORDERED: CITA20TA9 PO (10:46)
--- NOTE | 2017-01-24 10:57 | EMERGENCY ROOM VISIT NOTE ---
ED Visit Note First contact with patient: 10:13 Chief complaint: Sharp's injury at work today. 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 Patient reports that she was gowned and gloved from a case, and was cleaning of the dirty instruments. She states that the tenaculum opened, and punctured the ulnar aspect of her left fourth finger. She removed her glove, cleansed the area thoroughly. She now presents to the emergency department for post blood exposure laboratory testing. She reports that her tetanus vaccination is current, and she has been vaccinated against hepatitis B, and believes that her titers have indicated immunity. 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 She has sustained a sharps injuries at work, and is familiar with the postexposure process. Review of Systems: Review of systems as per HPI. All other systems reviewed were negative. At least 6 systems reviewed. Past Medical History: Electronic medical records are reviewed and summarized as above/below. See Problem List. Social History: , denies alcohol use. Physical Examination: Vital signs reviewed as per nursing notes. GENERAL: Patient is a well-appearing 32-year-old white female who is awake and alert and in no acute distress. SKIN: No obvious skin injury or puncture wound noted. There is no active bleeding. There is no wound care necessary. ED Course Patient was seen and examined as above. Informed consent for HIV and post exposure testing was obtained, and consents and all other paperwork were completed. The patient had no questions, and was comfortable with the treatment plan, and was instructed to follow up with [employer] for review of her laboratory results. The source patient is known, and testing will be obtained from them as well. Patient declined HIV prophylaxis. Employee health was made aware of her injury. Problem List Medical Problems: (1) Gastro-Esophageal Reflux Disease Without Esophagitis Status: Chronic (2) Nausea vomiting and diarrhea Status: Resolved (3) Patient exposure to body fluids Status: Resolved (4) Type 1 Diabetes Mellitus Without Complications Status: Chronic Current/Historical Medications Scheduled Cholecalciferol (Vitamin D3), 1 CAP PO QPM Citalopram Hydrobromide (Celexa), 20 MG PO DAILY Cyanocobalamin (Vitamin B12), 1 TAB PO QPM Esomeprazole Magnesium (Nexium), 40 MG PO QAM Insulin Detemir (Levemir), 8 UNITS SC HS Insulin Lispro (Human) (Humalog Kwikpen), 1 DOSE SC AC Metformin Hcl (Glucophage), 2 TAB PO BID Allergies Coded Allergies: Doxycycline (Verified Adverse Reaction, Unknown, GI UPSET, 01/24/17) Vital Signs Date Time Temp Pulse Resp B/P (MAP) Pulse Ox O2 Delivery O2 Flow Rate FiO2 01/24/17 11:30 78 16 99 01/24/17 09:53 36.7 81 18 98 Room Air Departure Information Impression Primary Impression: Patient exposure to body fluids Additional Impression: Work related injury Referrals Shahid Sanon, D.O.Int.Med. (PCP) Marielos Caruso Patient Instructions [facility] Additional Instructions Follow up with Employee Health for results of your bloodwork, and any follow up testing as indicated. Problem Qualifiers
[2017-01-24 11:30] VITALS: PULSE 78; O2SAT 99
== END 2017-01-24 11:34 | disposition home or self-care (01) ==
LOC: C.EDB 09:50
DX: Z77.21 Contact with and (suspected) exposure to potentially hazardous body fluids (principal); S61.245A Puncture wound with foreign body of left ring finger without damage to nail, initial encounter; W26.8XXA Contact with other sharp object(s), not elsewhere classified, initial encounter; Y99.0 Civilian activity done for income or pay; K21.9 Gastro-esophageal reflux disease without esophagitis; E10.9 Type 1 diabetes mellitus without complications; Z33.1 Pregnant state, incidental; Z79.4 Long term (current) use of insulin; Z79.84 Long term (current) use of oral hypoglycemic drugs

== ENCOUNTER → 2017-01-27 | Outpatient (CLI) | payer OTHER ==
[~2017-01-27] MED LIST changes: -CITA10TA8 PO; +CITA20TA9 PO
[2017-01-27 09:57] LABS: URINE TOTAL PROTEIN 6.3 mg/dl (0-11.9)
[2017-01-27 11:09] LABS: URINE TOTAL PROTEIN CALC 151.2 mg/24 hr (0-149.1)
== END | disposition home or self-care (01) ==
LOC: C.LABSPEC 07:07
PROVIDERS: ATTEND Obstetrics & Gynecology
DX: O24.919 Unspecified diabetes mellitus in pregnancy, unspecified trimester (principal); Z3A.00 Weeks of gestation of pregnancy not specified

== ENCOUNTER → 2017-03-13 | Outpatient (CLI) | payer OTHER | END | disposition home or self-care (01) | LOC: C.LABSPEC 17:41 | PROVIDERS: ATTEND Obstetrics & Gynecology | DX: O24.019 Pre-existing type 1 diabetes mellitus, in pregnancy, unspecified trimester (principal); Z3A.00 Weeks of gestation of pregnancy not specified ==

== ENCOUNTER → 2017-04-11 | Outpatient (CLI) | payer OTHER ==
[2017-04-11 17:55] LABS: URINE APPEARANCE CLEAR (CLEAR); URINE BILIRUBIN NEG (NEG); URINE COLOR YELLOW; URINE EPITHELIAL CELL AUTO 20-30 /lpf (0-5); URINE NITRITE NEG (NEG); URINE SPECIFIC GRAVITY 1.012 (1.000-1.030); UROBILINOGEN NEG (NEG)
[2017-04-11 17:57] LABS: MANUAL MICROSCOPIC REQUIRED? NO; REVIEW REQ? NO
== END | disposition home or self-care (01) ==
LOC: C.LABSPEC 17:25
PROVIDERS: ATTEND Obstetrics & Gynecology
DX: E10.9 Type 1 diabetes mellitus without complications (principal)

== ENCOUNTER 2017-05-14 08:51 | Outpatient (CLI) | payer OTHER ==
[~2017-05-14] VITALS: Ht 167.6 cm; Wt 185.0 kg
[2017-05-14 09:41] LABS: MEAN CELL VOLUME 93.4 fL (80-100); MEAN PLATELET VOLUME 10.4 fL (7.4-10.4); PLATELET COUNT 200 K/uL (130-400); RED BLOOD COUNT 3.64 M/uL (4.2-5.4); WHITE BLOOD COUNT 11.01 K/uL (4.8-10.8)
[2017-05-14 09:44] LABS: URINE APPEARANCE CLEAR (CLEAR); URINE BILIRUBIN NEG (NEG); URINE COLOR YELLOW; URINE NITRITE NEG (NEG); URINE PH 8.5 (4.5-7.5); URINE SPECIFIC GRAVITY 1.013 (1.000-1.030); UROBILINOGEN NEG (NEG); ZZUR CULT IF INDIC CLEAN CATCH NO
[2017-05-14 09:45] LABS: MEAN CORPUSCULAR HGB CONC 33.2 g/dl (32-36)
[2017-05-14 09:51] LABS: MANUAL MICROSCOPIC REQUIRED? NO; REVIEW REQ? NO
[2017-05-14 09:59] VITALS: Ht 167.6 cm; Wt 185.0 kg
== END 2017-05-14 10:26 | disposition home or self-care (01) ==
LOC: C.LD 08:51 → C.OPB 08:51
PROVIDERS: ATTEND Obstetrics & Gynecology
DX: O46.92 Antepartum hemorrhage, unspecified, second trimester (principal); O99.282 Endocrine, nutritional and metabolic diseases complicating pregnancy, second trimester; E03.9 Hypothyroidism, unspecified; O24.012 Pre-existing type 1 diabetes mellitus, in pregnancy, second trimester; E10.9 Type 1 diabetes mellitus without complications; O99.612 Diseases of the digestive system complicating pregnancy, second trimester; K21.9 Gastro-esophageal reflux disease without esophagitis; Z3A.25 25 weeks gestation of pregnancy

== ENCOUNTER → 2017-05-19 | Outpatient (CLI) | payer OTHER ==
[2017-05-19 09:54] LABS: URINE TOTAL PROTEIN 8.7 mg/dl (0-11.9)
[2017-05-19 10:12] LABS: URINE TOTAL PROTEIN CALC 234.9 mg/24 hr (0-149.1)
== END | disposition home or self-care (01) ==
LOC: C.LAB1850 06:58
PROVIDERS: ATTEND Obstetrics & Gynecology
DX: E10.9 Type 1 diabetes mellitus without complications (principal)

== ENCOUNTER → 2017-06-03 | Outpatient (CLI) | payer OTHER ==
[2017-06-04 12:17] LABS: MANUAL MICROSCOPIC REQUIRED? NO; REVIEW REQ? NO; URINE APPEARANCE CLEAR (CLEAR); URINE BILIRUBIN NEG (NEG); URINE COLOR YELLOW; URINE NITRITE NEG (NEG); URINE PH 6.5 (4.5-7.5); URINE SPECIFIC GRAVITY 1.015 (1.000-1.030); UROBILINOGEN NEG (NEG)
== END | disposition home or self-care (01) ==
LOC: C.LABSPEC 11:14
PROVIDERS: ATTEND Obstetrics & Gynecology
DX: O09.92 Supervision of high risk pregnancy, unspecified, second trimester (principal); Z3A.00 Weeks of gestation of pregnancy not specified

== ENCOUNTER → 2017-07-01 | Outpatient (CLI) | payer OTHER | END | disposition home or self-care (01) | LOC: C.LABSPEC 10:28 | PROVIDERS: ATTEND Obstetrics & Gynecology | DX: O24.919 Unspecified diabetes mellitus in pregnancy, unspecified trimester (principal); Z3A.00 Weeks of gestation of pregnancy not specified ==

== ENCOUNTER → 2017-07-02 | Outpatient (CLI) | payer OTHER | END | disposition home or self-care (01) | LOC: C.LABSPEC 17:38 | PROVIDERS: ATTEND Obstetrics & Gynecology | DX: O24.919 Unspecified diabetes mellitus in pregnancy, unspecified trimester (principal) ==

== ENCOUNTER 2017-07-24 17:00 | Outpatient (CLI) | payer OTHER ==
[2017-07-24 17:26] LABS: BASO % 0.1 %; BASO ABS # 0.01 K/uL (0-0.2); EOS % 0.3 %; EOS ABS # 0.03 K/uL (0-0.5); HEMATOCRIT 33.4 % (37-47); HEMOGLOBIN 11.5 g/dL (12.0-16.0); IG# 0.05 K/uL (0.00-0.02); LYMPH % 17.8 %; LYMPH ABS # 1.97 K/uL (1.2-3.4); MEAN CELL VOLUME 92.8 fL (80-100); MEAN CORPUSCULAR HEMOGLOBIN 31.9 pg (25-34); MEAN PLATELET VOLUME 11.1 fL (7.4-10.4); MONO % 8.2 %; MONO ABS # 0.91 K/uL (0.11-0.59); NEUT % 73.1 %; NEUT ABS # 8.07 K/uL (1.4-6.5); PLATELET COUNT 204 K/uL (130-400); RED CELL DISTRIBUTION WIDTH CV 12.2 % (11.5-14.5); RED CELL DISTRIBUTION WIDTH SD 41.5 fL (36.4-46.3); WHITE BLOOD COUNT 11.04 K/uL (4.8-10.8)
[2017-07-24 17:28] LABS: MEAN CORPUSCULAR HGB CONC 34.4 g/dl (32-36)
[2017-07-24 17:51] LABS: ALBUMIN 2.8 gm/dl (3.4-5.0); ALKALINE PHOSPHATASE 104 U/L (45-117); ALT/SGPT 17 U/L (12-78); AST/SGOT 19 U/L (15-37); CREATININE 0.54 mg/dl (0.60-1.20); TOTAL PROTEIN 6.9 gm/dl (6.4-8.2)
[2017-07-24] MEDS ORDERED: LACTATED RINGER'S 1000ML 1,000 ML IV SCH (18:00)
[2017-07-24] MEDS ORDERED: ACETAMINOPHEN 325 MG TAB PO PRN (18:00)
== END 2017-07-24 19:25 | disposition home or self-care (01) ==
LOC: C.OPB 17:00 → C.LD 17:00 → C.OPB 19:25
PROVIDERS: ATTEND Obstetrics & Gynecology
DX: O14.93 Unspecified pre-eclampsia, third trimester (principal); O24.013 Pre-existing type 1 diabetes mellitus, in pregnancy, third trimester; O16.3 Unspecified maternal hypertension, third trimester; Z3A.35 35 weeks gestation of pregnancy

== ENCOUNTER 2017-07-28 16:15 | Outpatient (CLI) | payer OTHER | END 2017-07-28 18:30 | disposition home or self-care (01) | LOC: C.LD 16:15 → C.OPB 16:15 | PROVIDERS: ATTEND Obstetrics & Gynecology | DX: O36.8330 Maternal care for abnormalities of the fetal heart rate or rhythm, third trimester, not applicable or unspecified (principal); Z3A.36 36 weeks gestation of pregnancy ==

== ENCOUNTER → 2017-11-13 | Outpatient (CLI) | payer OTHER ==
--- NOTE | 2017-11-13 07:23 | DIAGNOSTIC IMAGING REPORT ---
L LOWER EXT JOINT WITHOUT CLINICAL HISTORY: 32 years-old Female with L ANKLE PAIN. Acute lateral pain of the left ankle status post twisting injury COMPARISON: None. TECHNIQUE: Multiplanar, multi sequence MRI of the left ankle was performed without contrast. FINDINGS: LATERAL LIGAMENT COMPLEX: The anterior talofibular ligament is thickened with intermediate signal and minimal adjacent edema suggesting acute or subacute grade 1 sprain. The calcaneofibular ligament and posterior talofibular ligaments are intact and unremarkable. SYNDESMOTIC LIGAMENTS: The anterior-inferior tibiofibular ligament is mildly thickened suggesting chronic sprain. The interosseous membrane and posterior-inferior tibiofibular ligaments are intact and appear unremarkable. DELTOID LIGAMENT COMPLEX: The superficial and deep components of the deltoid ligament are intact. ANTERIOR TENDONS: The tibialis anterior, extensor hallucis longus and extensor digitorum longus tendons are normal in position, morphology and signal. LATERAL TENDONS: The peroneus longus and brevis tendons are intact. Incidental note is made of a peroneus quartus tendon and muscle posterior to the peroneus brevis, image 11 series 8. This appears to insert on the retrocochlear evidence of the calcaneus. MEDIAL TENDONS: The posterior tibialis, flexor digitorum longus and flexor hallucis longus tendons are intact. Trace fluid of the tibialis posterior and flexor digitorum longus tendons along their posterior and inframalleolar coarse suggesting tenosynovitis. PLANTAR FASCIA: The medial and lateral bundles of the plantar fascia are normal in morphology and signal. Minimal perifascial edema is noted adjacent to the medial cord plantar fascia suggesting minimal acute plantar fasciitis without tear. No evidence of plantar fascial nodules. ACHILLES TENDON: The Achilles tendon is normal in position, morphology and signal. No associated bursitis. SINUS TARSI: There is normal fat signal within the sinus tarsi. The interosseous and cervical ligaments are normal. The navicular-calcaneal (spring) ligament is without acute abnormality. TARSAL TUNNEL: There are no obstructing lesions within the tarsal tunnel. BONE MARROW: Moderate bone marrow edema of the anterior process talus and anterior process calcaneus with mild bone marrow edema of the lateral aspect navicular, medial and lateral portions of the cuboid without discrete fracture. No osteochondral defect. Trace fluid within the posterior recess. IMPRESSION: 1. Moderate bone marrow edema of the anterior process talus and anterior process calcaneus with mild bone marrow edema of the lateral navicular, medial and lateral subarticular cuboid without discrete fracture line suggest posttraumatic bone marrow contusions. No osteochondral defect or loose body identified. 2. Acute or subacute grade 1 sprain of the anterior talofibular ligament. 3. Trace tenosynovitis of the tibialis posterior and flexor digitorum longus tendons. 4. Incidental note is made of an accessory tendon and muscle posterior to the peroneus brevis, compatible with a peroneus quartus tendon. The above report was generated using voice recognition software. It may contain grammatical, syntax or spelling errors. Electronically signed by: Raj Aleman M.D. 11/13/2017 7:21 AM Dictated Date/Time: 11/13/2017 7:08 AM
== END | disposition home or self-care (01) ==
LOC: C.MRI 06:30
PROVIDERS: ATTEND Orthopaedic Surgery Sports Medicine
DX: M25.572 Pain in left ankle and joints of left foot (principal); S93.492A Sprain of other ligament of left ankle, initial encounter; X58.XXXA Exposure to other specified factors, initial encounter

== ENCOUNTER 2022-07-30 13:00 | Inpatient (IN) ==
[2022-07-30] MEDS ORDERED: KETOROLAC TROMETHAMINE 15 MG/ML VIAL IV ONE (13:25)
[2022-07-30] MEDS ORDERED: ONDANSETRON INJ 2 MG/ML 2 ML VIAL IV STA ×2 (13:25→14:37)
[2022-07-30] MEDS ORDERED: SODIUM CHLORIDE 0.9% 1000ML 2,000 ML IV ONE ×2 (13:25→16:05)
[2022-07-30 14:01] LABS: Appearance Urine Cloudy (Clear); Bacteria Urine Automated 1+ (Negative); Bilirubin Urine Negative (Negative); Blood Urine 1+ (Negative); Color Urine Yellow; Epithelial Cell Urine Auto >30 /lpf (0-5); Glucose Urine UA 2+ (Negative); Ketones Urine 2+ (Negative); Leukocyte Esterase Urine Negative (Negative); Nitrite Urine Negative (Negative); RBC Urine Automated >30 /hpf (0-4); Urobilinogen Urine Negative (Negative)
[2022-07-30 14:02] LABS: Protein Urine 2+ (Negative)
[2022-07-30 14:09] LABS: Basophils # (auto) 0.03 K/uL (0-0.2); Basophils % (auto) 0.2 %; Eosinophils # (auto) 0.07 K/uL (0-0.50); Eosinophils % (auto) 0.4 %; Hemoglobin 12.6 g/dl (12.0-16.0); Immature Granulocytes # (auto) 0.05 K/uL (0.01-0.20); Immature Granulocytes % (auto) 0.3 %; Lymphocytes # (auto) 1.05 K/uL (1.2-3.4); Lymphocytes % (auto) 6.3 %; Mean Corpuscular Hemoglobin 31.3 pg (25.0-34.0); Mean Corpuscular Hgb Conc 34.1 g/dL (32.0-36.0); Mean Platelet Volume 10.4 fL (9.4-12.4); Monocytes # (auto) 1.02 K/uL (0.11-0.59); Monocytes % (auto) 6.1 %; Neutrophils # (auto) 14.48 K/uL (1.40-6.50); Neutrophils % (auto) 86.7 %; Platelet Count 326 K/uL (130-400); RDW Coefficient of Variation 11.2 % (11.5-14.5); RDW Standard Deviation 38.4 fL (36.4-46.3); Red Blood Count 4.02 M/uL (4.20-5.40)
--- NOTE | 2022-07-30 14:14 | XRay Report ---
XR chest 1V portable HISTORY: Atypical chest pain. COMPARISON: Chest 10/30/2019. FINDINGS: The lungs are clear. Cardiac silhouette is normal in size. No pleural effusions. No pneumot horax. IMPRESSION: No acute process. ACT 112: Negative or not required by law. Electronically signed by: Misbah Mello M.D. 07/30/2022 2:13 PM
[2022-07-30 14:27] LABS: Albumin Globulin Ratio 1.3 (0.9-2); Albumin Level 4.4 gm/dl (3.4-5.0); BUN Creatinine Ratio 19.6 (10-20); Bilirubin,Total 0.5 mg/dl (0.2-1.0); Calcium 9.9 mg/dl (8.5-10.1); Creatinine Clr Calc Pharmacy 154.4 ml/min; Est GFR (Non-African American) 120.8 ml/min; Globulin 3.3 gm/dl (2.5-4.0); Magnesium 1.7 mg/dl (1.7-2.4); Potassium 3.9 mmol/L (3.5-5.1); Total Protein 7.7 gm/dl (6.0-8.3)
[2022-07-30] MEDS ORDERED: MoRPHine SULFATE 10 MG/ML CARP/VIAL IV STA (14:37)
[2022-07-30 14:46] LABS: D Dimer 2400 ug/L FEU (0-500)
[2022-07-30] MEDS: MoRPHine SULFATE 4 MG/ML 1 ML CARP\\VIAL ONE ×2 (14:57→16:29)
[2022-07-30] MEDS: MoRPHine SULFATE 2 MG/ML CARP ONE ×2 (14:59→15:03)
[2022-07-30] MEDS ORDERED: OPTIRAY 320 500ml IV ONE (15:28)
--- NOTE | 2022-07-30 15:42 | CT Scan Report ---
CHEST CTA for PULMONARY ARTERIES CT DOSE: HISTORY: Tachycardia. Dizziness. Left arm pain. TECHNIQUE: Multiaxial CT images of the chest were performed following the intravenous administration of contrast to evaluate the pulmonary arteries. Maximal intensity projection images were also obtaine d. A dose lowering technique was utilized adhering to the principles of ALARA. COMPARISON STUDY: Chest CTA 10/30/2019. FINDINGS: There is a normal caliber thoracic aorta with no evidence for dissection. There is no evide nce for pulmonary embolus. No pleural effusions. No pneumothorax. The liver and spleen are unremarkab le. No mediastinal or hilar lymphadenopathy. The central airways are patent. The lungs are clear. Sma ll amount of residual thymic tissue again noted. IMPRESSION: No evidence for a pulmonary embolus. ACT 112: Negative or not required by law. Electronically signed by: Misbah Mello M.D. 07/30/2022 3:41 PM
--- NOTE | 2022-07-30 15:57 | CT Scan Report ---
ABDOMEN AND PELVIS CT WITH IV CONTRAST CT DOSE: 1164.17 mGy.cm HISTORY: Acute generalized abdominal pain r mid abd pain TECHNIQUE: Multiaxial CT images of the abdomen and pelvis were performed following the IV administrat ion of 114 cc of Optiray, A dose lowering technique was utilized adhering to the principles of ALARA . COMPARISON STUDY: CTA chest of same day. FINDINGS: Clear lung bases. Unremarkable spleen, pancreas, gallbladder and adrenal glands. Unremarkab le liver. Patency of the hepatic and portal veins. Unremarkable kidneys. No hydronephrosis. Urinary b ladder wall thickening with partial distention. IUD of the mid uterus. Involuting left ovarian follic le, 1.8 cm. Aorta and IVC are unremarkable. Mild nonspecific distal esophageal wall thickening. Mildly enlarged mesenteric lymph nodes measure up to 1.4 cm. Small amount of complex free pelvic fluid. The appendix is dilated measuring up to approx imately 2 cm with wall thickening and mucosal hyperemia. There is irregularity of the appendiceal tip which is contiguous with a 2.4 x 1.9 x 1.8 cm fluid collection containing a subcentimeter calcificat ion. Unremarkable soft tissues. No acute fracture. IMPRESSION: 1. Ruptured acute appendicitis with 2.4 cm periappendiceal abscess containing a subcentimeter appendi colith. This is not amenable to percutaneous drainage. 2. No bowel obstruction or pneumoperitoneum. 3. Likely reactive mesenteric lymphadenopathy. ACT 112: Negative or not required by law. The above report was generated using voice recognition software. It may contain grammatical, syntax o r spelling errors. Electronically signed by: Sal Aleman M.D. 07/30/2022 3:55 PM
[2022-07-30] MEDS ORDERED: PIPERACILLIN/TAZOBACTAM 4.5 GM/120 ML BAG IV ONE (16:05)
--- NOTE | 2022-07-30 16:11 | Electrocardiogram Report ---
Test Reason : Blood Pressure : / mmHG Vent. Rate : 146 BPM Atrial Rate : 146 BPM P-R Int : 112 ms QRS Dur : 094 ms QT Int : 352 ms P-R-T Axes : 062 016 061 degrees QTc Int : 548 ms Sinus tachycardia Nonspecific T wave abnormality Abnormal ECG When compared with ECG of 30-OCT-2019 08:53, No significant change was found Confirmed by Vincent Marie ([id number]) on 07/30/2022 4:10:40 PM Referred By: Confirmed By:Vincent Marie
[2022-07-30] MEDS ORDERED: MoRPHine SULFATE 2 MG/ML CARP IV STA ×2 (16:22→20:35)
--- NOTE | 2022-07-30 16:28 | Emergency Department Note ---
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 She is been having abdominal pain since around third of this month. She notes it has been waxing and waning in intensity. She has a chronic pain which is t here and then will worsen. She has been unable to eat or drink. She admits to nausea vomiting. Denies any dysuria urgency or frequency. Negative test. No previous abdominal surgeries. No other exacerbating or remitting factors PAST MEDICAL HISTORY:See Below PAST SURGICAL HISTORY:See Below FAMILY HISTORY:See Below SOCIAL HISTORY:See Below HOME MEDICATIONS:See Below ALLERGIES:See Below VITALS:See Below PHYSICAL EXAMINATION: GENERAL: Sitting up in bed, alert, well appearing, well nourished, no distress, non-toxic EYE EXAM: normal conjunctiva. OROPHARYNX: mucous membranes are moist NECK: supple, no nuchal rigidity, no adenopathy, non-tender LUNGS: Clear to auscultation. Normal chest wall mechanics HEART: no murmurs, S1 normal and S2 normal ABDOMEN: abdomen soft, tender in the right lower quadrant, normo-active bowel sounds, no masses, no rebound or guarding. UPPER EXTREMITIES: upper extremities are grossly normal. LOWER EXTREMITIES: No pitting edema. NEURO EXAM: Normal sensorium, cranial nerves II-XII grossly intact, normal speech, no gross weakness of arms, no gross weakness of legs. MEDICAL DECISION MAKING: Patient is a 37-year-old female who presents ER with above-stated complaint. IV was established blood work was obtained. External records reviewed. Patient is tachycardic with a heart rate in 130s. Labs show leukocytosis 16. No anemia. Does have a left shift. Dimer was elevated. BMP along with LFTs bilirubin was unremarkable. Troponin was negative. UA was contaminated. was negative. CT abdomen pelvis and chest unremarkable for perfect appendicitis not amenable to IR drainage. Patient was given IV Zosyn. She was given multiple doses of IV narcotics. She was updated bedside. I did discuss with Dr. Bee in regards to this being amenable to drainage elsewhere and notes that it is not. Patient requested not any surgery. To contact Mary Boyle who contacted several tendons who are not around and they are unable to do this. Consequently discussed with Dr. Burns who is on-call for [facility] surgery. Patient was given IV Zosyn. Updated bedside. Will be admitted for further work-up. Triage Nursing notes reviewed. Limited review of prior medical records performed Vital Signs: reviewed and remarkable for tachy Differential diagnosis: Differential diagnoses includes but is not limited to gastritis, peptic ulcer disease, GERD, gallbladder disease, pancreatitis, small bowel obstruction, appendicitis, diverticulitis, hernia, urinary tract infection, torsion, perforation, trauma, infectious. ER treatment provided: See below Diagnostics interpreted by me include EKG and cardiac monitoring as listed below: -Cardiac Monitoring: An order was placed for continuous cardiac monitoring. The monitor shows a rate of 145 with sinus rhythm. -ECG: Sinus rhythm rate 146 Normal axis No PVCs Nonspecific ST wave changes QTC 548 -Laboratory studies:Interpreted by me as stated above in MDM and shown below. Imaging studies: Xrays: As interpreted by me:none CTs show: CT of the chest shows no obvious infiltrate per my read. CT abdomen pelvis per radiology shows a perforated appendicitis. Consultation(s): Discussed with Mary Boyle from general surgery as well as Dr. Burns and Dr. Bee from radiology as described above. 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--platelets are WNL OCD (obsessive compulsive disorder) Sleep apnea no device Surgical History History of History of esophagogastroduodenoscopy (EGD) History of removal of cyst temporal cyst as a child History of wisdom tooth extraction Family History Grandmother (Maternal) Colorectal cancer Father Heart disease Diabetes Hypertension Myocardial infarction Sister Diabetes Brother Diabetes Mother Diabetes Anxiety Myocardial infarction Hypertension Grandmother (Paternal) Breast cancer Other No family history of adverse response to anesthesia Denies family history of Ovarian cancer Social History Smoking Status: Never smoker Second Hand Exposure: No; Hx Alcohol Use: Yes Alcohol type: beer, wine and hard liquor Hx Substance Use: No Preferred Language: Marshallese Communication Ability: Effective 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: No Beliefs That Will Affect Care: None Current Living Situation: Spouse and Family Current Living Situation Comment: Lives with and daughter current occupational status: employed Feels Safe at Home: Yes Assistive Devices: Glasses Allergies Allergies Allergy/AdvReac Type Severity Reaction Status Date / Time chlorhexidine Allergy Intermediate Hives Verified 07/30/22 16:18 latex Allergy Intermediate Hives Verified 07/30/22 16:18 nickel Allergy Intermediate redness, Verified 07/30/22 16:18 irritation, rash oxycodone [From Percocet] Allergy Intermediate itching Verified 07/30/22 16:18 doxycycline AdvReac Intermediate GI UPSET Verified 07/30/22 16:18 Home Meds Home Medications Medication Instructions Recorded Confirmed blood sugar diagnostic (OneTouch #10 ea 03/17/19 07/11/22 Ultra Blue Test Strip) esomeprazole magnesium 40 mg 40 mg PO QAM 03/17/19 07/30/22 capsule,delayed release (Nexium) glucagon HCl 1 mg/mL solution for 1 mg IM UD PRN Hypoglycemia #2 ea 03/17/19 07/30/22 injection lancets 33 gauge (OneTouch Delica #100 ea 03/17/19 07/11/22 Lancets) levonorgestrel 20 mcg/24 hours (8 20 mcg intrauterine CONT 03/17/19 07/30/22 yrs) 52 mg intrauterine device (Mirena) multivitamin (Daily Multi-Vitamin 1 tab PO QAM 03/17/19 07/30/22 tablet) cholecalciferol (vitamin D3) 50 4,000 unit PO QAM #0 caps 06/01/20 07/30/22 mcg (2,000 unit) capsule bupropion HCl 300 mg 24 hr tablet, 300 mg PO DAILY 07/11/22 07/30/22 extended release vortioxetine 10 mg tablet 10 mg PO QPM 07/11/22 07/30/22 (Trintellix) Previous Rx's Medication Instructions Recorded pen needle, diabetic 32 gauge x #100 ea 05/17/21" (BD Ida 2nd Gen Pen Needle) atorvastatin 10 mg tablet 10 mg PO HS #90 tabs 06/20/22 metformin 500 mg tablet 1,000 mg PO BID #360 tabs 07/12/22 Results & Data (ED) Vital Signs Vital Signs - 24 hr 07/30/22 13:03 07/30/22 14:14 Temperature 36.6 C Temperature Source Temporal Artery Scan Pulse Rate 154 H Respiratory Rate 18 Respiratory Effort / Characteristics Non-Labored Spontaneous Respiratory Depth Normal Respiratory Pattern Regular Blood Pressure 125/79 Blood Pressure Mean 94 Blood Pressure Position Sitting Pulse Oximetry 97 99 Oxygen Delivery Method Room Air Room Air Sepsis Recent Fever Within 48 Hours No Sepsis New/Unexplained Change in Mental Status N/A Sepsis Action Taken by Nursing No Action Required Laboratory Data 07/30/22 13:38 07/30/22 13:38 Lab Results 07/30/22 07/30/22 07/30/22 Range/Units 13:38 13:38 13:38 WBC 16.70 H (4.8-10.8) K/ul RBC 4.02 L (4.20-5.40) M/uL Hgb 12.6 (12.0-16.0) g/dl Hct 37.0 (37.0-47.0) % MCV 92.0 (80.0-100.0) fL MCH 31.3 (25.0-34.0) pg MCHC 34.1 (32.0-36.0) g/dL RDW Std Deviation 38.4 (36.4-46.3) fL RDW Coeff of Claudio 11.2 L (11.5-14.5) % Plt Count 326 (130-400) K/uL MPV 10.4 (9.4-12.4) fL Immature Gran % (Auto) 0.3 % Neut % (Auto) 86.7 % Lymph % (Auto) 6.3 % Cuming % (Auto) 6.1 % Eos % (Auto) 0.4 % Baso % (Auto) 0.2 % Neut # (Auto) 14.48 H (1.40-6.50) K/uL Lymph # (Auto) 1.05 L (1.2-3.4) K/uL Cuming # (Auto) 1.02 H (0.11-0.59) K/uL Eos # (Auto) 0.07 (0-0.50) K/uL Baso # (Auto) 0.03 (0-0.2) K/uL Immature Gran # (Auto) 0.05 (0.01-0.20) K/uL D-Dimer (0-500) ug/L FEU Sodium 136 (136-145) mmol/L Potassium 3.9 (3.5-5.1) mmol/L Chloride 95 L (98-107) mmol/L Carbon Dioxide 32 (21-32) mmol/L Anion Gap 9 (3-11) BUN 11 (6-23) mg/dl Creatinine 0.56 L (0.6-1.2) mg/dl Est Cr Clr Drug Dosing 154.4 ml/min Est GFR ( Amer) 140.0 ml/min Est GFR (Non-Af Amer) 120.8 ml/min BUN/Creatinine Ratio 19.6 (10-20) Glucose 196 H (70-99(Fasting)) mg/dl Calcium 9.9 (8.5-10.1) mg/dl Magnesium 1.7 (1.7-2.4) mg/dl Total Bilirubin 0.5 (0.2-1.0) mg/dl AST 9 L (13-39) U/L ALT 9 (7-52) U/L Alkaline Phosphatase 83 (34-104) U/L Troponin I High Sens 3.0 (0-14) pg/ml Total Protein 7.7 (6.0-8.3) gm/dl Albumin 4.4 (3.4-5.0) gm/dl Globulin 3.3 (2.5-4.0) gm/dl Albumin/Globulin Ratio 1.3 (0.9-2) TSH 1.244 (0.300-4.500) uIu/ml Urine Color Urine Appearance (Clear) Urine pH (4.5-7.5) Ur Specific [place] (1.000-1.030) Urine Protein (Negative) Urine Glucose (UA) (Negative) Urine Ketones (Negative) Urine Blood (Negative) Urine Nitrite (Negative) Urine Bilirubin (Negative) Urine Urobilinogen (Negative) Ur Leukocyte Esterase (Negative) Urine WBC (Auto) (0-5) /hpf Urine RBC (Auto) (0-4) /hpf U Hyaline Cast (Auto) (0-5) /lpf U Epithel Cells (Auto) (0-5) /lpf Urine Bacteria (Auto) (Negative) POC Ur Test (NEG) 07/30/22 07/30/22 07/30/22 Range/Units 13:38 13:38 13:46 WBC (4.8-10.8) K/ul RBC (4.20-5.40) M/uL Hgb (12.0-16.0) g/dl Hct (37.0-47.0) % MCV (80.0-100.0) fL MCH (25.0-34.0) pg MCHC (32.0-36.0) g/dL RDW Std Deviation (36.4-46.3) fL RDW Coeff of Claudio (11.5-14.5) % Plt Count (130-400) K/uL MPV (9.4-12.4) fL Immature Gran % (Auto) % Neut % (Auto) % Lymph % (Auto) % Cuming % (Auto) % Eos % (Auto) % Baso % (Auto) % Neut # (Auto) (1.40-6.50) K/uL Lymph # (Auto) (1.2-3.4) K/uL Cuming # (Auto) (0.11-0.59) K/uL Eos # (Auto) (0-0.50) K/uL Baso # (Auto) (0-0.2) K/uL Immature Gran # (Auto) (0.01-0.20) K/uL D-Dimer 2400 H* (0-500) ug/L FEU Sodium (136-145) mmol/L Potassium (3.5-5.1) mmol/L Chloride (98-107) mmol/L Carbon Dioxide (21-32) mmol/L Anion Gap (3-11) BUN (6-23) mg/dl Creatinine (0.6-1.2) mg/dl Est Cr Clr Drug Dosing ml/min Est GFR ( Amer) ml/min Est GFR (Non-Af Amer) ml/min BUN/Creatinine Ratio (10-20) Glucose (70-99(Fasting)) mg/dl Calcium (8.5-10.1) mg/dl Magnesium (1.7-2.4) mg/dl Total Bilirubin (0.2-1.0) mg/dl AST (13-39) U/L ALT (7-52) U/L Alkaline Phosphatase (34-104) U/L Troponin I High Sens (0-14) pg/ml Total Protein (6.0-8.3) gm/dl Albumin (3.4-5.0) gm/dl Globulin (2.5-4.0) gm/dl Albumin/Globulin Ratio (0.9-2) TSH (0.300-4.500) uIu/ml Urine Color Yellow Urine Appearance Cloudy A (Clear) Urine pH 8.0 H (4.5-7.5) Ur Specific [place] 1.030 (1.000-1.030) Urine Protein 2+ H (Negative) Urine Glucose (UA) 2+ H (Negative) Urine Ketones 2+ H (Negative) Urine Blood 1+ H (Negative) Urine Nitrite Negative (Negative) Urine Bilirubin Negative (Negative) Urine Urobilinogen Negative (Negative) Ur Leukocyte Esterase Negative (Negative) Urine WBC (Auto) 1-5 (0-5) /hpf Urine RBC (Auto) >30 H (0-4) /hpf U Hyaline Cast (Auto) 1-5 (0-5) /lpf U Epithel Cells (Auto) >30 H (0-5) /lpf Urine Bacteria (Auto) 1+ H (Negative) POC Ur Test NEG (NEG) Administered Medications Discontinued Medications Sodium Chloride (Nss 1000ml) 2,000 mls @ 999 mls/hr IV .Q2H1M ONE Stop: 07/30/22 15:25 Last Admin: 07/30/22 13:38 Dose: 999 mls/hr Documented By: MILES Ioversol (Optiray 320 500ml) 114 ml IV ONCE ONE Stop: 07/30/22 15:29 Last Admin: 07/30/22 15:29 Dose: 114 ml Documented By: GISELLA Ketorolac Tromethamine (Ketorolac Tromethamine 15 Mg/Ml Vial) 10 mg IV NOW ONE Stop: 07/30/22 13:26 Last Admin: 07/30/22 13:38 Dose: 10 mg Documented By: MILES Morphine Sulfate (Morphine Sulfate 2 Mg/Ml Carp) Confirm Administered Dose 2 mg .ROUTE .STK-MED ONE Stop: 07/30/22 14:52 Last Admin: 07/30/22 15:03 Dose: 2 mg Documented By: MILES Ondansetron HCl (Ondansetron Inj 2 Mg/Ml 2 Ml Vial) 4 mg IV NOW STA Stop: 07/30/22 13:26 Last Admin: 07/30/22 13:38 Dose: 4 mg Documented By: MILES Ondansetron HCl (Ondansetron Inj 2 Mg/Ml 2 Ml Vial) 4 mg IV NOW STA Stop: 07/30/22 14:38 Last Admin: 07/30/22 14:57 Dose: 4 mg Documented By: MILES Imaging Data Radiologist's Impression: Chest X-Ray 07/30/22 13:44 XR chest 1V portable HISTORY: Atypical chest pain. COMPARISON: Chest 10/30/2019. FINDINGS: The lungs are clear. Cardiac silhouette is normal in size. No pleural effusions. No pneumothorax. IMPRESSION: No acute process. ACT 112: Negative or not required by law. Electronically signed by: Misbah Mello M.D. 07/30/2022 2:13 PM Abdomen/Pelvis CT 07/30/22 14:[address] WITH IV CONTRAST CT DOSE: 1164.17 mGy.cm HISTORY: Acute generalized abdominal pain r mid abd pain TECHNIQUE: Multiaxial CT images of the abdomen and pelvis were performed following the IV administration of 114 cc of Optiray, A dose lowering technique was utilized adhering to the principles of ALARA. COMPARISON STUDY: CTA chest of same day. FINDINGS: Clear lung bases. Unremarkable spleen, pancreas, gallbladder and adrenal glands. Unremarkable liver. Patency of the hepatic and portal veins. Unremarkable kidneys. No hydronephrosis. Urinary bladder wall thickening with partial distention. IUD of the mid uterus. Involuting left ovarian follicle, 1.8 cm. Aorta and IVC are unremarkable. Mild nonspecific distal esophageal wall thickening. Mildly enlarged mesenteric lymph nodes measure up to 1.4 cm. Small amount of complex free pelvic fluid. The appendix is dilated measuring up to approximately 2 cm with wall thickening and mucosal hyperemia. There is irregularity of the appendiceal tip which is contiguous with a 2.4 x 1.9 x 1.8 cm fluid collection containing a subcentimeter calcification. Unremarkable soft tissues. No acute fracture. IMPRESSION: 1. Ruptured acute appendicitis with 2.4 cm periappendiceal abscess containing a subcentimeter appendicolith. This is not amenable to percutaneous drainage. 2. No bowel obstruction or pneumoperitoneum. 3. Likely reactive mesenteric lymphadenopathy. ACT 112: Negative or not required by law. The above report was generated using voice recognition software. It may contain grammatical, syntax or spelling errors. Electronically signed by: Sal Aleman M.D. 07/30/2022 3:55 PM Chest CTA 07/30/22 14:45 CHEST CTA for PULMONARY ART[address] DOSE: HISTORY: Tachycardia. Dizziness. Left arm pain. TECHNIQUE: Multiaxial CT images of the chest were performed following the intravenous administration of contrast to evaluate the pulmonary arteries. Ma ximal intensity projection images were also obtained. A dose lowering technique was utilized adhering to the principles of ALARA. COMPARISON STUDY: Chest CTA 10/30/2019. FINDINGS: There is a normal caliber thoracic aorta with no evidence for dissect ion. There is no evidence for pulmonary embolus. No pleural effusions. No pneumothorax. The liver and spleen are unremarkable. No mediastinal or hilar lymphadenopathy. The central airways are patent. The lungs are clear. Small amount of residual thymic tissue again noted. IMPRESSION: No evidence for a pulmonary embolus. ACT 112: Negative or not required by law. Electronically signed by: Misbah Mello M.D. 07/30/2022 3:41 PM Discharge Plan Visit Data Chief Complaint: Arrhythmia/Palpitations Stated Complaint: ABDOMINAL PAIN, L ARM PAIN, LIGHT HEADED ED Provider: Rob Vaughan Discharge Problem: Acute perforated appendicitis, Abdominal pain, Tachycardia, Leukocytosis Forms Stand Alone Forms: My [facility] SignNow Prescriptions Prescriptions: No Action cholecalciferol (vitamin D3) 50 mcg (2,000 unit) capsule 4,000 unit PO QAM Qty: 0 Rx Instructions: PER PT "HAVEN'T TAKEN FOR ABOUT A WEEK, NEED TO GET MORE". atorvastatin 10 mg tablet 10 mg PO HS Qty: 90 0RF metformin 500 mg tablet 1,000 mg PO BID Qty: 360 3RF Rx Instructions: ON HOLD FOR 2 DAYS, HAD CT DYE glucagon HCl 1 mg recon soln 1 mg IM UD PRN (Reason: Hypoglycemia) Qty: 2 Mirena 20 mcg/24 hours (5 yrs) 52 mg intrauterine device 20 mcg IU CONT multivitamin [Daily Multi-Vitamin] tablet 1 tab PO QAM esomeprazole magnesium [Nexium] 40 mg capsule,delayed release(DR/EC) 40 mg PO QAM (DME) lancets [OneTouch Delica Lancets] 33 gauge misc See Dose Instructions .ROUTE .MEDSUPPLY Qty: 100 Rx Instructions: test blood sugars 4 times per day (DME) OneTouch Ultra Blue Test Strip strip See Dose Instructions .ROUTE .MEDSUPPLY Qty: 10 Rx Instructions: test blood sugars 4 times daily (DME) pen needle, diabetic [BD Ida 2nd Gen Pen Needle] 32 gauge x 5/32" needle See Rx Instructions .Route Qty: 100 3RF Rx Instructions: As directed bupropion HCl 300 mg tablet extended release 24 hr 300 mg PO DAILY Trintellix 10 mg tablet 10 mg PO QPM Referrals Referrals: Jesse Armstrong [Primary Care Provider] -
--- NOTE | 2022-07-30 16:38 | Surgery Consultation ---
Date of Consultation July 30, 2022 Assessment & Plan (1) Acute perforated appendicitis: pt is a 37 year-old female who presents to Er with 4 weeks history abdominal pain, IMP: perforated appendicitis with abscess Plan, base on pt's H/P, labs and CT scan finding, recommend to do conservative treatment first, admit pt to hospital, NPO, IV fluid and IV antibiotic, repeat labs in morning, SCD. 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 She is been having abdominal pain since around third of this month. She notes it has been waxing and waning in intensity. She has a chronic pain which is there and then will worsen. She has been unable to eat or drink. She admits to nausea vomiting. Denies any dysuria urgency or frequency. Negative test. No previous abdominal surgeries. No other exacerbating or remitting factors I ( John Paul Burns MD ) got a call for consult perforated appendicitis, I reviewed pt's H/P, labs and CT scan with pt, pt feels better, less abdominal pain, no fever, Allergies Allergy/AdvReac Type Severity Reaction Status Date / Time chlorhexidine Allergy Intermediate Hives Verified 07/30/22 16:18 latex Allergy Intermediate Hives Verified 07/30/22 16:18 nickel Allergy Intermediate redness, Verified 07/30/22 16:18 irritation, rash oxycodone [From Percocet] Allergy Intermediate itching Verified 07/30/22 16:18 doxycycline AdvReac Intermediate GI UPSET Verified 07/30/22 16:18 Home Medications Medication Instructions Recorded Confirmed Type blood sugar diagnostic (OneTouch #10 ea 03/17/19 07/11/22 History Ultra Blue Test Strip) esomeprazole magnesium 40 mg 40 mg PO QAM 03/17/19 07/30/22 History capsule,delayed release (Nexium) glucagon HCl 1 mg/mL solution for 1 mg IM UD PRN Hypoglycemia #2 ea 03/17/19 07/30/22 History injection lancets 33 gauge (OneTouch Delica #100 ea 03/17/19 07/11/22 History Lancets) levonorgestrel 20 mcg/24 hours (8 20 mcg intrauterine CONT 03/17/19 07/30/22 History yrs) 52 mg intrauterine device (Mirena) multivitamin (Daily Multi-Vitamin 1 tab PO QAM 03/17/19 07/30/22 History tablet) cholecalciferol (vitamin D3) 50 4,000 unit PO QAM #0 caps 06/01/20 07/30/22 History mcg (2,000 unit) capsule pen needle, diabetic 32 gauge x #100 ea 05/17/21 07/11/22 Rx 5/32" (BD Ida 2nd Gen Pen Needle) atorvastatin 10 mg tablet 10 mg PO HS #90 tabs 06/20/22 07/30/22 Rx bupropion HCl 300 mg 24 hr tablet, 300 mg PO DAILY 07/11/22 07/30/22 History extended release vortioxetine 10 mg tablet 10 mg PO QPM 07/11/22 07/30/22 History (Trintellix) metformin 500 mg tablet 1,000 mg PO BID #360 tabs 07/12/22 07/30/22 Rx Patient History Medical History (Updated 07/30/22 @ 16:28 by Rob Vaughan DO) Anxiety Change in bowel movement Depression Diabetes mellitus type 1 is type 1 but currently on metformin only Epigastric pain GERD (gastroesophageal reflux disease) Hyperlipidemia 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--platelets are WNL OCD (obsessive compulsive disorder) Sleep apnea no device Surgical History History of History of esophagogastroduodenoscopy (EGD) History of removal of cyst temporal cyst as a child History of wisdom tooth extraction Family History Grandmother (Maternal) Colorectal cancer Father Heart disease Diabetes Hypertension Myocardial infarction Sister Diabetes Brother Diabetes Mother Diabetes Anxiety Myocardial infarction Hypertension Grandmother (Paternal) Breast cancer Other No family history of adverse response to anesthesia Denies family history of Ovarian cancer Social History Smoking Status: Never smoker Second Hand Exposure: No; Hx Alcohol Use: Yes Alcohol type: beer, wine and hard liquor Hx Substance Use: No Preferred Language: Kyr[place]z Communication Ability: Effective Protein Specialist Required: No Beliefs That Will Affect Care: None Current Living Situation: Spouse and Family Current Living Situation Comment: Lives with and daughter current occupational status: employed Feels Safe at Home: Yes Assistive Devices: Glasses Review of Systems Constitutional: as per Subjective / HPI Eyes: as per Subjective / HPI Respiratory: as per Subjective / HPI Cardiovascular: as per Subjective / HPI and + problem reported (dyslipidemia) Gastrointestinal: GERD Musculoskeletal: as per Subjective / HPI Neurologic: as per Subjective / HPI Psychiatric: anxiety, depression Endocrine: simple goiter Hematologic / Lymphatic: vitamin D deficiency Physical Exam Constitutional: WD/WN, vitals as above no distress Eyes: PERRL, conjunctivae normal, anicteric sclerae Neck: trachea midline, no thyromegaly Respiratory: normal respiratory effort, lungs clear to auscultation Cardiovascular: RRR, no murmur, no edema Gastrointestinal (Abdomen): soft, no significant tenderness at RLQ, no rebound pain, no distend, BS +, Musculoskeletal: no cyanosis or clubbing, extremities motor strength 5/5 Neurologic: patellar DTR's 2+ bilat, sensation intact Psychiatric: A+Ox3, euthymic affect Results & Data ([facility]) Vital Signs (Past 12 Hours) Vital Signs Temp Pulse Resp BP Pulse Ox O2 Del Method 07/30/22 14:14 99 Room Air 07/30/22 13:03 36.6 C 154 H 18 125/79 97 Room Air Laboratory Results Abnormal lab results 07/30/22 07/30/22 07/30/22 Range/Units 13:38 13:38 13:38 WBC 16.70 H (4.8-10.8) K/ul RBC 4.02 L (4.20-5.40) M/uL RDW Coeff of Claudio 11.2 L (11.5-14.5) % Neut # (Auto) 14.48 H (1.40-6.50) K/uL Lymph # (Auto) 1.05 L (1.2-3.4) K/uL [place] # (Auto) 1.02 H (0.11-0.59) K/uL D-Dimer 2400 H* (0-500) ug/L FEU Chloride 95 L (98-107) mmol/L Creatinine 0.56 L (0.6-1.2) mg/dl Glucose 196 H (70-99(Fasting)) mg/dl AST 9 L (13-39) U/L Urine Appearance (Clear) Urine pH (4.5-7.5) Urine Protein (Negative) Urine Glucose (UA) (Negative) Urine Ketones (Negative) Urine Blood (Negative) Urine RBC (Auto) (0-4) /hpf U Epithel Cells (Auto) (0-5) /lpf Urine Bacteria (Auto) (Negative) 07/30/22 Range/Units 13:38 WBC (4.8-10.8) K/ul RBC (4.20-5.40) M/uL RDW Coeff of Claudio (11.5-14.5) % Neut # (Auto) (1.40-6.50) K/uL Lymph # (Auto) (1.2-3.4) K/uL [place] # (Auto) (0.11-0.59) K/uL D-Dimer (0-500) ug/L FEU Chloride (98-107) mmol/L Creatinine (0.6-1.2) mg/dl Glucose (70-99(Fasting)) mg/dl AST (13-39) U/L Urine Appearance Cloudy A (Clear) Urine pH 8.0 H (4.5-7.5) Urine Protein 2+ H (Negative) Urine Glucose (UA) 2+ H (Negative) Urine Ketones 2+ H (Negative) Urine Blood 1+ H (Negative) Urine RBC (Auto) >30 H (0-4) /hpf U Epithel Cells (Auto) >30 H (0-5) /lpf Urine Bacteria (Auto) 1+ H (Negative) Diagnostic Findings ABDOMEN AND PELVIS CT WITH IV CONTRAST CT DOSE: 1164.17 mGy.cm HISTORY: Acute generalized abdominal pain r mid abd pain TECHNIQUE: Multiaxial CT images of the abdomen and pelvis were performed following the IV administration of 114 cc of Optiray, A dose lowering technique was utilized adhering to the principles of ALARA. COMPARISON STUDY: CTA chest of same day. FINDINGS: Clear lung bases. Unremarkable spleen, pancreas, gallbladder and adrenal glands. Unremarkable liver. Patency of the hepatic and portal veins. Unremarkable kidneys. No hydronephrosis. Urinary bladder wall thickening with partial distention. IUD of the mid uterus. Involuting left ovarian follicle, 1.8 cm. Aorta and IVC are unremarkable. Mild nonspecific distal esophageal wall thickening. Mildly enlarged mesenteric lymph nodes measure up to 1.4 cm. Small amount of complex free pelvic fluid. The appendix is dilated measuring up to approximately 2 cm with wall thickening and mucosal hyperemia. There is irregularity of the appendiceal tip which is contiguous with a 2.4 x 1.9 x 1.8 cm fluid collection containing a subcentimeter calcification. Unremarkable soft tissues. No acute fracture. IMPRESSION: 1. Ruptured acute appendicitis with 2.4 cm periappendiceal abscess containing a subcentimeter appendicolith. This is not amenable to percutaneous drainage. 2. No bowel obstruction or pneumoperitoneum. 3. Likely reactive mesenteric lymphadenopathy.
[2022-07-30] MEDS ORDERED: MoRPHine SULFATE 2 MG/ML CARP ONE (18:53)
[2022-07-30] MEDS ORDERED: MoRPHine SULFATE 2 MG/ML CARP IV PRN (20:39)
[2022-07-30] MEDS ORDERED: D5W AND 1/2NSS + 20MEQ KCL 20 MEQ/1,000 ML BAG IV SCH (20:39)
[2022-07-30] MEDS ORDERED: MoRPHine SULFATE 4 MG/ML 1 ML CARP\\VIAL IV PRN (20:39)
[2022-07-30] MEDS ORDERED: ATORVASTATIN 10 MG TAB PO SCH (21:00)
[2022-07-30] MEDS ORDERED: GLUCAGON FOR INJ 1 MG VIAL IM PRN (21:24)
[2022-07-30] MEDS ORDERED: LEVONORGESTREL (MIRENA) IUD PV SCH (21:45)
[2022-07-30] MEDS: ONDANSETRON INJ 2 MG/ML 2 ML VIAL IV PRN (22:08)
[2022-07-31] MEDS ORDERED: ACETAMINOPHEN 325 MG TAB PO PRN (00:49)
[2022-07-31] MEDS ORDERED: fentaNYL citrate 100 MCG/2 ML VIAL ONE ×3 (01:12→04:35)
[2022-07-31] MEDS ORDERED: MIDAZOLAM HCL 1 MG/ML 2ML VIAL ONE (01:12)
[2022-07-31] MEDS ORDERED: LACTATED RINGER'S 1,000 ML IV SCH (01:15)
--- NOTE | 2022-07-31 01:19 | Anesthesiology Consultation ---
Date of Service July 31, 2022 Assessment & Plan (1) Encounter for pre-operative examination: Chart Review Chart Review: Acceptable Risk for Surgery History Surgery Operation Date: 07/31/22 02:00 Proposed Procedures p Laparoscopic Appendectomy - John Paul Burns MD Height/Weight Height: 5 ft 6.5 in Weight: 87.2 kg Allergies Allergy/AdvReac Type Severity Reaction Status Date / Time chlorhexidine Allergy Intermediate Hives Verified 07/30/22 16:18 latex Allergy Intermediate Hives Verified 07/30/22 16:18 nickel Allergy Intermediate redness, Verified 07/30/22 16:18 irritation, rash oxycodone [From Percocet] Allergy Intermediate itching Verified 07/30/22 16:18 doxycycline AdvReac Intermediate GI UPSET Verified 07/30/22 16:18 Medications Home Medications Medication Instructions Recorded Confirmed Last Taken blood sugar diagnostic (OneTouch #10 ea 03/17/19 07/11/22 Unknown Ultra Blue Test Strip) esomeprazole magnesium 40 mg 40 mg PO QAM 03/17/19 07/30/22 07/30/22 capsule,delayed release (Nexium) glucagon HCl 1 mg/mL solution for 1 mg IM UD PRN Hypoglycemia #2 ea 03/17/19 07/30/22 Unknown injection lancets 33 gauge (OneTouch Delica #100 ea 03/17/19 07/11/22 Unknown Lancets) levonorgestrel 20 mcg/24 hours (8 20 mcg intrauterine CONT 03/17/19 07/30/22 Unknown yrs) 52 mg intrauterine device (Mirena) multivitamin (Daily Multi-Vitamin 1 tab PO QAM 03/17/19 07/30/22 07/30/22 tablet) cholecalciferol (vitamin D3) 50 4,000 unit PO QAM #0 caps 06/01/20 07/30/22 Unknown mcg (2,000 unit) capsule pen needle, diabetic 32 gauge x #100 ea 05/17/21 07/11/22 Unknown 5/32" (BD Ida 2nd Gen Pen Needle) atorvastatin 10 mg tablet 10 mg PO HS #90 tabs 06/20/22 07/30/22 07/29/22 bupropion HCl 300 mg 24 hr tablet, 300 mg PO DAILY 07/11/22 07/30/22 07/30/22 extended release vortioxetine 10 mg tablet 10 mg PO QPM 07/11/22 07/30/22 07/29/22 (Trintellix) metformin 500 mg tablet 1,000 mg PO BID #360 tabs 07/12/22 07/30/22 07/30/22 08:00 Active Medications Generic Name Dose Route Start Last Admin Trade Name Freq PRN Reason Stop Dose Admin Atorvastatin Calcium 10 mg 07/30/22 21:00 07/30/22 22:07 Atorvastatin 10 Mg Tab PO 08/29/22 20:59 10 mg HS CAROLE Administration Lactated Ringer's 1,000 mls @ 200 mls/hr 07/31/22 01:15 07/31/22 01:15 Lr IV 08/30/22 01:14 200 mls/hr .Q5H CAROLE Administration Levonorgestrel 1 each 07/30/22 21:45 07/30/22 22:51 Levonorgestrel (Mirena) Iud PV 08/29/22 21:44 Not Given CONT CAROLE Miscellaneous 1 each 07/31/22 00:00 07/31/22 00:53 Order Awaiting Action N/A 08/30/22 00:00 Not Given QS CAROLE Morphine Sulfate 3 mg 07/30/22 20:39 07/30/22 22:59 Morphine Sulfate 4 Mg/Ml 1 Ml Carp\\Vial IV 08/13/22 20:38 3 mg Q4H PRN Administration Pain Ondansetron HCl 4 mg 07/30/22 22:00 07/30/22 22:08 Ondansetron Inj 2 Mg/Ml 2 Ml Vial IV 08/29/22 21:59 4 mg Q6H PRN Administration NAUSEA AND VOMITING Past Medical History Medical History Anxiety Change in bowel movement Depression Diabetes mellitus type 1 is type 1 but currently on metformin only Epigastric pain GERD (gastroesophageal reflux disease) Hyperlipidemia 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--platelets are WNL OCD (obsessive compulsive disorder) Sleep apnea no device Past Family History Family History Grandmother (Maternal) Colorectal cancer Father Heart disease Diabetes Hypertension Myocardial infarction Sister Diabetes Brother Diabetes Mother Diabetes Anxiety Myocardial infarction Hypertension Grandmother (Paternal) Breast cancer Other No family history of adverse response to anesthesia Denies family history of Ovarian cancer Past Surgical History Surgical History History of History of esophagogastroduodenoscopy (EGD) History of removal of cyst temporal cyst as a child History of wisdom tooth extraction Social History Smoking Status: Never smoker Do You Dip or Chew Tobacco: No Hx Alcohol Use: Yes Alcohol type: beer, wine and hard liquor alcohol intake frequency: holidays/special occasions only Hx Substance Use: No substance use type: does not use Physical Exam Vital Signs Last Vital Signs Temp 38.1 C H 07/31/22 00:00 Pulse 126 H 07/31/22 00:41 Resp 16 07/31/22 00:00 BP 123/61 07/31/22 00:00 Pulse Ox 93 07/31/22 00:00 O2 Del Method 07/31/22 00:00 Testing Laboratory Results 07/30/22 13:38 07/30/22 13:38 Urine Color Yellow 07/30/22 13:38 Urine Appearance Cloudy (Clear) A 07/30/22 13:38 Urine pH 8.0 (4.5-7.5) H 07/30/22 13:38 Ur Specific [place] 1.030 (1.000-1.030) 07/30/22 13:38 Urine Protein 2+ (Negative) H 07/30/22 13:38 Urine Glucose (UA) 2+ (Negative) H 07/30/22 13:38 Urine Ketones 2+ (Negative) H 07/30/22 13:38 Urine Nitrite Negative (Negative) 07/30/22 13:38 Ur Leukocyte Esterase Negative (Negative) 07/30/22 13:38 Urine WBC (Auto) 1-5 /hpf (0-5) 07/30/22 13:38 Urine RBC (Auto) >30 /hpf (0-4) H 07/30/22 13:38 U Hyaline Cast (Auto) 1-5 /lpf (0-5) 07/30/22 13:38 U Epithel Cells (Auto) >30 /lpf (0-5) H 07/30/22 13:38 Urine Bacteria (Auto) 1+ (Negative) H 07/30/22 13:38 07/30/22 13:46 POC Ur Test NEG
--- NOTE | 2022-07-31 01:21 | History & Physical Bridge Note ---
Date of Service July 31, 2022 History & Physical Bridge Note I have examined the patient, reviewed the History & Physical and in the interval since the performance of the History & Physical I have noted the following changes of clinical significance: no changes noted
[2022-07-31] MEDS: PIPERACILLIN/TAZOBACTAM 3.375 GM in DEXTROSE 5% 100 ML IV SCH ×3 (01:22→17:08)
--- NOTE | 2022-07-31 01:27 | Surgery Progress Note ---
Date of Service July 31, 2022 Assessment & Plan (1) Acute perforated appendicitis: Plan: pt is a 37 year-old female who presents to Er with 4 weeks history abdominal pain, IMP: perforated appendicitis with abscess Plan, base on pt's H/P, labs and CT scan finding, recommend to do conservative treatment first, admit pt to hospital, NPO, IV fluid and IV antibiotic, repeat labs in morning, SCD. pt may need surgery treatment if pt's symptoms worse, pt understood, she and her family member agreed with the plan, I answered all questions, 07/31/2022 1:[address] Burns IMP: perforated appendicitis with abscess, UTI, base on pt is still have RLQ pain with HR 126, T 38.1, I recommend to do laparoscopic appendectomy, possible open or partial colectomy, D/W benefits, risks and alternatives of the surgery, the risks may include but not limit such as bleeding, infection, abscess, sepsis, renal failure, injury other organs, bowel obstruction, incisional hernia, scar, pain and , pt understood, she agreed with surgery, she signed informed consent, I answered all questions, pre- op iv antibiotic, consult hospitalist for co-manage DM. Admission and Anticipated Discharge Date Admission Date: July 30, 2022 Subjective F/U perforated appendicitis with abscess, pt is still have RLQ pain, with HR 120, and T 38.1 , pt denies nausea, no vomiting, Review of Systems Constitutional: as per Subjective / HPI Eyes: as per Subjective / HPI Respiratory: as per Subjective / HPI Cardiovascular: as per Subjective / HPI and + problem reported (dyslipidemia) Gastrointestinal: GERD Musculoskeletal: as per Subjective / HPI Neurologic: as per Subjective / HPI Psychiatric: anxiety, depression Endocrine: simple goiter Hematologic / Lymphatic: vitamin D deficiency Physical Exam Constitutional: WD/WN, vitals as above T 38.1, RR 16, HR 126, BP 123/61, o2sat 93 %, no distress, Eyes: PERRL, conjunctivae normal, anicteric sclerae Neck: trachea midline, no thyromegaly Respiratory: normal respiratory effort, lungs clear to auscultation Cardiovascular: RRR, no murmur, no edema Gastrointestinal (Abdomen): soft, tenderness at RLQ, no rebound pain, no distend, BS +, Musculoskeletal: no cyanosis or clubbing, extremities motor strength 5/5 Neurologic: patellar DTR's 2+ bilat, sensation intact Psychiatric: A+Ox3, euthymic affect Results & Data ([facility]) Vital Signs (Past 12 Hours) Vital Signs Temp Pulse Pulse Resp BP BP Pulse Ox 07/31/22 00:41 126 H 07/31/22 00:00 38.1 C H 124 H 16 123/61 93 07/30/22 23:49 37.4 C 140 H 127/73 07/30/22 23:00 128 H 16 115/75 07/30/22 22:30 128 H 15 07/30/22 22:00 124 H 12 111/67 07/30/22 21:00 120 H 12 112/69 07/30/22 20:00 115 H 12 130/82 07/30/22 19:40 120 H 16 122/80 07/30/22 18:55 126 H 14 121/76 07/30/22 17:10 130 H 20 131/87 96 07/30/22 15:35 118 H 14 114/80 96 07/30/22 15:00 130 H 14 96 07/30/22 17:01 121 H 18 138/83 99 07/30/22 14:14 99 O2 Del Method 07/31/22 00:41 07/31/22 00:00 Room Air 07/30/22 23:49 07/30/22 23:00 07/30/22 22:30 07/30/22 22:00 07/30/22 21:00 07/30/22 20:00 07/30/22 19:40 07/30/22 18:55 07/30/22 17:10 07/30/22 15:35 07/30/22 15:00 07/30/22 17:01 Room Air 07/30/22 14:14 Room Air Laboratory Results Abnormal lab results 07/30/22 07/30/22 07/30/22 Range/Units 13:38 13:38 13:38 WBC 16.70 H (4.8-10.8) K/ul RBC 4.02 L (4.20-5.40) M/uL RDW Coeff of Claudio 11.2 L (11.5-14.5) % Neut # (Auto) 14.48 H (1.40-6.50) K/uL Lymph # (Auto) 1.05 L (1.2-3.4) K/uL [place] # (Auto) 1.02 H (0.11-0.59) K/uL D-Dimer 2400 H* (0-500) ug/L FEU Chloride 95 L (98-107) mmol/L Creatinine 0.56 L (0.6-1.2) mg/dl Glucose 196 H (70-99(Fasting)) mg/dl AST 9 L (13-39) U/L Urine Appearance (Clear) Urine pH (4.5-7.5) Urine Protein (Negative) Urine Glucose (UA) (Negative) Urine Ketones (Negative) Urine Blood (Negative) Urine RBC (Auto) (0-4) /hpf U Epithel Cells (Auto) (0-5) /lpf Urine Bacteria (Auto) (Negative) 07/30/22 Range/Units 13:38 WBC (4.8-10.8) K/ul RBC (4.20-5.40) M/uL RDW Coeff of Claudio (11.5-14.5) % Neut # (Auto) (1.40-6.50) K/uL Lymph # (Auto) (1.2-3.4) K/uL [place] # (Auto) (0.11-0.59) K/uL D-Dimer (0-500) ug/L FEU Chloride (98-107) mmol/L Creatinine (0.6-1.2) mg/dl Glucose (70-99(Fasting)) mg/dl AST (13-39) U/L Urine Appearance Cloudy A (Clear) Urine pH 8.0 H (4.5-7.5) Urine Protein 2+ H (Negative) Urine Glucose (UA) 2+ H (Negative) Urine Ketones 2+ H (Negative) Urine Blood 1+ H (Negative) Urine RBC (Auto) >30 H (0-4) /hpf U Epithel Cells (Auto) >30 H (0-5) /lpf Urine Bacteria (Auto) 1+ H (Negative) Diagnostic Findings ABDOMEN AND PELVIS CT WITH IV CONTRAST CT DOSE: 1164.17 mGy.cm HISTORY: Acute generalized abdominal pain r mid abd pain TECHNIQUE: Multiaxial CT images of the abdomen and pelvis were performed following the IV administration of 114 cc of Optiray, A dose lowering technique was utilized adhering to the principles of ALARA. COMPARISON STUDY: CTA chest of same day. FINDINGS: Clear lung bases. Unremarkable spleen, pancreas, gallbladder and adrenal glands. Unremarkable liver. Patency of the hepatic and portal veins. Unremarkable kidneys. No hydronephrosis. Urinary bladder wall thickening with partial distention. IUD of the mid uterus. Involuting left ovarian follicle, 1.8 cm. Aorta and IVC are unremarkable. Mild nonspecific distal esophageal wall thickening. Mildly enlarged mesenteric lymph nodes measure up to 1.4 cm. Small amount of complex free pelvic fluid. The appendix is dilated measuring up to approximately 2 cm with wall thickening and mucosal hyperemia. There is irregularity of the appendiceal tip which is contiguous with a 2.4 x 1.9 x 1.8 cm fluid collection containing a subcentimeter calcification. Unremarkable soft tissues. No acute fracture. IMPRESSION: 1. Ruptured acute appendicitis with 2.4 cm periappendiceal abscess containing a subcentimeter appendicolith. This is not amenable to percutaneous drainage. 2. No bowel obstruction or pneumoperitoneum. 3. Likely reactive mesenteric lymphadenopathy.
[2022-07-31] MEDS ORDERED: BACITRACIN OINT 15 GM TUBE ONE (01:32)
[2022-07-31] MEDS ORDERED: BUPIVACAINE 0.5 % 5 MG/1 ML MPF 30ML VIAL ONE (01:32)
[2022-07-31] MEDS ORDERED: LIDOCAINE 1% LOCAL 20 ML VIAL ONE (01:32)
[2022-07-31] MEDS ORDERED: ATROPINE SULFATE 0.1 MG/ML 10ML SYR IV PRN (02:00)
[2022-07-31] MEDS ORDERED: KETOROLAC 30 MG/ML VIAL IV PRN (02:00)
[2022-07-31] MEDS ORDERED: PROMETHAZINE HCL 12.5 MG in SODIUM CHLORIDE 0.9% 50 ML IV PRN (02:00)
[2022-07-31] MEDS ORDERED: ONDANSETRON INJ 2 MG/ML 2 ML VIAL IV PRN (02:00)
[2022-07-31] MEDS ORDERED: VANCOMYCIN HCL 1000MG/20ML VIAL ONE ×2 (02:26→03:46)
[2022-07-31] MEDS ORDERED: LIDOCAINE 2% MPF LOCAL 5 ML VIAL INFIL ONE (02:31)
[2022-07-31] MEDS ORDERED: GLYCOPYRROLATE 0.2 MG/ML VIAL ONE (02:31)
[2022-07-31] MEDS ORDERED: SUCCINYLCHOLINE 100MG/5ML SYR IV ONE (02:31)
[2022-07-31] MEDS ORDERED: ONDANSETRON INJ 2 MG/ML 2 ML VIAL ONE (02:31)
[2022-07-31] MEDS ORDERED: PROPOFOL IV EMULSION 10 MG/ML 20 ML VIAL IV ONE (02:31)
[2022-07-31] MEDS ORDERED: ROCURONIUM BROMIDE 10 MG/ML 5 ML VIAL IV ONE (02:31)
[2022-07-31] MEDS ORDERED: NEOSTIGMINE METHYLSULFATE 1 MG/ML 10ML VIAL ONE (02:31)
--- NOTE | 2022-07-31 04:52 | Post Operative Brief Note ---
Immediate Post Op Note v1 Date of Surgery July 31, 2022 Pre & Post Diagnosis Operation Date: 07/31/22 02:00 Pre-Op Diagnosis: Acute perforated appendicitis, with abscess Post-Op Diagnosis: Acute perforated appendicitis, with abscess I identified the patient and participated in the time-out.: Yes Procedure Operation Date: 07/31/22 02:00 Actual Procedures p Laparoscopy Converted to Open Appendectomy - John Paul Burns MD Surgeon John Paul Burns MD Intelligence Operations Specialist director medical surgical Estimated Blood Loss 30 Findings Consistent with Post-Op Diagnosis perforated appendicitis with abscess Fluids 1200ml Specimens appendix Drains Vargas Catheter (latex-free vargas inserted by Eddie Willoughby RN without difficulty prior to surgery. Urine return clean, yellow) and Te-Crystal Drain (10mm flat) Anesthesia Type General Complications none Disposition Accompanied Patient To Recovery: Yes
[2022-07-31] MEDS: HYDROmorphone INJ 1 MG/ML SYRINGE IV PRN ×2 (05:11→05:21)
[2022-07-31] MEDS: ONDANSETRON INJ 2 MG/ML 2 ML VIAL IV PRN ×2 (05:31→19:41)
[2022-07-31] MEDS ORDERED: PROMETHAZINE HCL 6.25 MG in SODIUM CHLORIDE 0.9% 50 ML IV STA (06:01)
--- NOTE | 2022-07-31 06:07 | Hospitalist Consultation ---
Date of Consultation July 31, 2022 Assessment & Plan (1) Type 2 diabetes mellitus: Verito is a 37 year old female w/ PmHx diabetes mellitus type 2, GERD, anxiety/depression admitted to surgical service for ruptured appendix. T2DM: -Follows with diabetes clinic outpatient on metformin and Victoza. -A1c from 07/05 6.8. -Hold home metformin while inpatient, SSI ordered, hypoglycemia protocol. -BSG ACHS or q6h while NPO. Nausea/Vomiting: -QTc 548 from EKG this admission. -Given 4mg zofran and 6.25mg Phenergan post op for nausea and vomiting. -Will stick to lower doses for now on as needed basis given QTc. Leukocytosis: -WBC 16.70 on arrival, 18.35 this AM. -May be multifactorial w/ possible infection from ruptured appendix as well as stress from surgery. -Agree with surgical team plan for IV Zosyn q8h. -Cont to monitor. Dyslipidemia: -Hold atorvastatin while NPO. GERD: -Hold home esomeprazole, continue pantoprazole per surgical team. Anxiety/depression: -Hold home bupropion and vortioxetine while NPO. Acute perforated appendicitis: -Continue plan per surgical team. Dispo: Med/tele. (2) Anxiety: (3) Depression: (4) Dyslipidemia: (5) Acute perforated appendicitis: (6) Leukocytosis: Supervising Physician Co-Signing Physician Notes Attending addendum: I have physically seen this patient, have supervised the medical residents activities, and agree with the H&P unless as otherwise noted. Assessment and Plan: Acute Perforated Appendicitis with abscess- Status postsurgical repair Primary service is general surgery Continue IV antibiotics and pain control per primary service Diabetes mellitus- Hold metformin and Victoza Placed on Accu-Cheks before meals and at bedtime/every 6 hours with NovoLog SSI Nausea/vomiting- Zofran and Phenergan as noted GERD- East omeprazole on hold Pantoprazole 40 mg IV daily as per surgical team Anxiety with depression- Restart bupropion and vortioxetine when taking p.o. Will follow along during hospital stay History of Present Illness Reason for Consultation: Co-management Diabetes Requesting Physician: John Paul Burns MD Attending Physician: John Paul Burns MD History of Present Illness Verito is a 37 year old female with past medical history of diabetes mellitus type 2, GERD, anxiety/depression who came into the hospital for almost a month of abdominal pain. Patient had been having waxing and waning abdominal pain throughout the past month before going to her PCP. She had recently developed nausea and vomiting as well as unable to eat or drink and her PCP thought this may be gallbladder in origin and sent her to the emergency department. In the ED she was found to have on CT A&P ruptured acute appendicitis with 2.4cm periappendiceal abscess containing a subcentimeter appendicolith. She was also found to have a D-dimer of 2400 and subsequent CTA chest was negative for PE. She was taken to the OR and had a laparoscopy converted to open appendectomy. Allergies Allergy/AdvReac Type Severity Reaction Status Date / Time chlorhexidine Allergy Intermediate Hives Verified 07/30/22 16:18 latex Allergy Intermediate Hives Verified 07/30/22 16:18 nickel Allergy Intermediate redness, Verified 07/30/22 16:18 irritation, rash oxycodone [From Percocet] Allergy Intermediate itching Verified 07/30/22 16:18 doxycycline AdvReac Intermediate GI UPSET Verified 07/30/22 16:18 Home Medications Medication Instructions Recorded Confirmed Type blood sugar diagnostic (OneTouch #10 ea 03/17/19 07/11/22 History Ultra Blue Test Strip) esomeprazole magnesium 40 mg 40 mg PO QAM 03/17/19 07/30/22 History capsule,delayed release (Nexium) glucagon HCl 1 mg/mL solution for 1 mg IM UD PRN Hypoglycemia #2 ea 03/17/19 07/30/22 History injection lancets 33 gauge (OneTouch Delica #100 ea 03/17/19 07/11/22 History Lancets) levonorgestrel 21 mcg/24 hours (8 20 mcg intrauterine CONT 03/17/19 07/30/22 History yrs) 52 mg intrauterine device (Mirena) multivitamin (Daily Multi-Vitamin 1 tab PO QAM 03/17/19 07/30/22 History tablet) cholecalciferol (vitamin D3) 50 4,000 unit PO QAM #0 caps 06/01/20 07/30/22 History mcg (2,000 unit) capsule pen needle, diabetic 32 gauge x #100 ea 05/17/21 07/11/22 Rx 5/32" (BD Ida 2nd Gen Pen Needle) atorvastatin 10 mg tablet 10 mg PO HS #90 tabs 06/20/22 07/30/22 Rx bupropion HCl 300 mg 24 hr tablet, 300 mg PO DAILY 07/11/22 07/30/22 History extended release vortioxetine 10 mg tablet 10 mg PO QPM 07/11/22 07/30/22 History (Trintellix) metformin 500 mg tablet 1,000 mg PO BID #360 tabs 07/12/22 07/30/22 Rx Patient History Medical History Anxiety Change in bowel movement Depression Diabetes mellitus type 1 is type 1 but currently on metformin only Epigastric pain GERD (gastroesophageal reflux disease) Hyperlipidemia 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--platelets are WNL OCD (obsessive compulsive disorder) Sleep apnea no device Surgical History History of History of esophagogastroduodenoscopy (EGD) History of removal of cyst temporal cyst as a child History of wisdom tooth extraction Family History Grandmother (Maternal) Colorectal cancer Father Heart disease Diabetes Hypertension Myocardial infarction Sister Diabetes Brother Diabetes Mother Diabetes Anxiety Myocardial infarction Hypertension Grandmother (Paternal) Breast cancer Other No family history of adverse response to anesthesia Denies family history of Ovarian cancer Social History Smoking Status: Never smoker Second Hand Exposure: No; Do You Dip or Chew Tobacco: No; Tobacco Cessation Education Requested by Patient: No Hx Alcohol Use: Yes Alcohol type: beer, wine and hard liquor Hx Substance Use: No Preferred Language: Georgian Communication Ability: Effective Distribution Coordinator Required: No Beliefs That Will Affect Care: None Current Living Situation: Spouse Current Living Situation Comment: Lives with and daughter current occupational status: employed Other Information That Helps Us Care for You: No Feels Safe at Home: Yes Safety Concerns: Feels Safe At This Time Assistive Devices: None Review of Systems Review of Systems: As per HPI. Physical Exam Constitutional: WD/WN, vitals as above Eyes: PERRL, conjunctivae normal, anicteric sclerae Respiratory: Clear to auscultation bilaterally. Cardiovascular: Tachycardic, S1 and S2, RRR, no murmurs. No peripheral edema. Gastrointestinal (Abdomen): Patient's abdomen with post surgical wrapping, FORTUNATO drain w/ minimal sanguineous drainage. Skin: no rashes, warm and dry Results & Data Results & Data ([facility]) Vital Signs (Past 12 Hours) Vital Signs Temp Pulse Pulse Resp BP BP Pulse Ox 07/31/22 05:19 37.4 C 115 H 16 137/85 92 07/31/22 05:11 37.6 C H 116 H 16 123/61 91 07/31/22 00:41 126 H 07/31/22 00:00 38.1 C H 124 H 16 123/61 93 07/30/22 23:49 37.4 C 140 H 127/73 07/30/22 23:00 128 H 16 115/75 07/30/22 22:30 128 H 15 07/30/22 22:00 124 H 12 111/67 07/30/22 21:00 120 H 12 112/69 07/30/22 20:00 115 H 12 130/82 07/30/22 19:40 120 H 16 122/80 07/30/22 18:55 126 H 14 121/76 O2 Del Method O2 Flow Rate 07/31/22 05:19 Oxymask 2 07/31/22 05:11 Room Air 07/31/22 00:41 07/31/22 00:00 Room Air 07/30/22 23:49 07/30/22 23:00 07/30/22 22:30 07/30/22 22:00 07/30/22 21:00 07/30/22 20:00 07/30/22 19:40 07/30/22 18:55 Resident Activity Tracking Resident Involvement: Resident Care Provided Care Provided: Adult Hospital Medicine
[2022-07-31] MEDS ORDERED: HYDROmorphone INJ 0.5 MG/0.5 ML SYR IV PRN (06:09)
[2022-07-31] MEDS ORDERED: BLOOD SUGAR DIAGNOSTIC SCH (06:09)
[2022-07-31] MEDS ORDERED: HYDROmorphone INJ 1 MG/ML SYRINGE IV PRN ×2 (06:09→08:12)
[2022-07-31] MEDS ORDERED: LANCETS SCH (06:09)
[2022-07-31] MEDS: LACTATED RINGER'S 1,000 ML IV SCH ×3 (06:18→19:30)
--- NOTE | 2022-07-31 06:36 | Anesthesiology Progress Note ---
Date of Service July 31, 2022 Anesthesia Post Procedure Vital Signs Vital Signs: Temp Pulse Pulse Resp BP BP Pulse Ox 07/31/22 05:40 36.6 C 117 H 12 136/84 95 07/31/22 05:30 37.6 C H 122 H 14 144/84 H 91 07/31/22 05:19 37.4 C 115 H 16 137/85 92 07/31/22 05:11 37.6 C H 116 H 16 123/61 91 07/31/22 00:41 126 H 07/31/22 00:00 38.1 C H 124 H 16 123/61 93 07/30/22 23:49 37.4 C 140 H 127/73 07/30/22 23:00 128 H 16 115/75 07/30/22 22:30 128 H 15 07/30/22 22:00 124 H 12 111/67 07/30/22 21:00 120 H 12 112/69 07/30/22 20:00 115 H 12 130/82 07/30/22 19:40 120 H 16 122/80 07/30/22 18:55 126 H 14 121/76 07/30/22 17:10 130 H 20 131/87 96 07/30/22 15:35 118 H 14 114/80 96 07/30/22 15:00 130 H 14 96 07/30/22 17:01 121 H 18 138/83 99 07/30/22 14:14 99 07/30/22 13:03 36.6 C 154 H 18 125/79 97 O2 Del Method O2 Flow Rate 07/31/22 05:40 Oxymask 2 07/31/22 05:30 Room Air 07/31/22 05:19 Oxymask 2 07/31/22 05:11 Room Air 07/31/22 00:41 07/31/22 00:00 Room Air 07/30/22 23:49 07/30/22 23:00 07/30/22 22:30 07/30/22 22:00 07/30/22 21:00 07/30/22 20:00 07/30/22 19:40 07/30/22 18:55 07/30/22 17:10 07/30/22 15:35 07/30/22 15:00 07/30/22 17:01 Room Air 07/30/22 14:14 Room Air 07/30/22 13:03 Room Air Pain Intensity Abdomen: Pain Intensity: 5 Transfer of Care Handoff Completed per policy Notes Mental Status: alert / awake / arousable Patient Amnestic to Procedure: Yes Nausea / Vomiting: adequately controlled Pain: adequately controlled Airway Patency, RR, SpO2: stable & adequate BP & HR: stable & adequate Hydration State: stable & adequate Anesthetic Complications: no major complications apparent
[2022-07-31] MEDS: MAGNESIUM SULFATE / D5W 1 GM/100 ML BAG IV SCH ×2 (06:41→08:59)
[2022-07-31 06:54] LABS: Basophils # (auto) 0.04 K/uL (0-0.2); Basophils % (auto) 0.2 %; Eosinophils # (auto) 0.04 K/uL (0-0.50); Eosinophils % (auto) 0.2 %; Hematocrit (blood only) 31.5 % (37.0-47.0); Hemoglobin 10.6 g/dl (12.0-16.0); Immature Granulocytes # (auto) 0.08 K/uL (0.01-0.20); Immature Granulocytes % (auto) 0.4 %; Lymphocytes # (auto) 0.94 K/uL (1.2-3.4); Lymphocytes % (auto) 5.1 %; Mean Corpuscular Hemoglobin 31.5 pg (25.0-34.0); Mean Corpuscular Hgb Conc 33.7 g/dL (32.0-36.0); Mean Corpuscular Volume 93.5 fL (80.0-100.0); Mean Platelet Volume 10.3 fL (9.4-12.4); Monocytes % (auto) 6.5 %; Neutrophils # (auto) 16.05 K/uL (1.40-6.50); Neutrophils % (auto) 87.6 %; Platelet Count 269 K/uL (130-400); RDW Coefficient of Variation 11.4 % (11.5-14.5); Red Blood Count 3.37 M/uL (4.20-5.40); White Blood Count 18.35 K/ul (4.8-10.8)
[2022-07-31 07:16] LABS: Albumin Globulin Ratio 1.3 (0.9-2); Albumin Level 3.4 gm/dl (3.4-5.0); BUN Creatinine Ratio 14.5 (10-20); Bilirubin,Total 0.8 mg/dl (0.2-1.0); Calcium 7.8 mg/dl (8.5-10.1); Creatinine Clr Calc Pharmacy 160.4 ml/min; Est GFR (African American) 140.8 ml/min; Est GFR (Non-African American) 121.5 ml/min; Globulin 2.7 gm/dl (2.5-4.0); Potassium 4.1 mmol/L (3.5-5.1); Total Protein 6.1 gm/dl (6.0-8.3)
--- NOTE | 2022-07-31 07:16 | Operative Report (OR) ---
DATE OF PROCEDURE: 07/31/2022 PREOPERATIVE DIAGNOSIS: Perforated appendicitis with abscess. POSTOPERATIVE DIAGNOSIS: Perforated appendicitis with abscess. OPERATION: Laparoscopic converted to open appendectomy. FORTUNATO drainage x1. SURGEON: John Paul Burns MD. ANESTHESIA: General. ESTIMATED BLOOD LOSS: About 30 mL FINDINGS: Perforated appendicitis with abscess. Significant inflammation around the appendix. The abscess is sized about 3 x 4 cm. The abscess culture sent. COMPLICATIONS: None. INDICATIONS FOR THE PROCEDURE: This is a 37-year-old female who presented to ED with near the 4-week history of abdominal pain and the patient had a CT scan diagnosis of perforated acute appendicitis with abscess and we tried the conservative treatment. We gave her IV antibiotic and p.o.; however, the patient developed sepsis symptoms and the heart rate is 126, and temperature is 38.1. Also, increased abdominal pain. So, I recommended to do a laparoscopic appendectomy, possible open, possible partial colectomy. I did talk to the patient about the benefit, risk, alternate procedure. I indicated the risks may include, but not limited to, such as bleeding, infection, abscess, sepsis, injury to other organs, bowel obstruction, scar pain, renal failure, incisional hernia, even . The patient understands and she signed informed consent and I answered all questions. DETAILS OF PROCEDURE: After we identified the patient and verified the procedure, we brought the patient to the OR, put the patient in the supine position on the OR table. The patient received SCD on bilateral legs to prevent DVT. Also, patient received 3.375 grams Zosyn IV for prophylactic antibiotic. The patient received general anesthesia without difficulty. Also, patient received Aceves catheter insertion for drainage of her bladder. The abdomen was prepped and draped in routine sterile fashion. After timeout, I injected the local anesthesia by using 1% lidocaine mixed with 0.5% Marcaine just above the umbilicus. Then, I made a small incision just above umbilicus, opened fascia, opened peritoneum. Under direct vision, put a Kelsey trocar in, connected to CO2 to create pneumoperitoneum, flow rate at 6 liters per minute, pressure not more than 14 mmHg. Once we got a nice pneumoperitoneum, we put a camera in, looked around the abdomen, showed there was some cloudy fluid along the pelvic area and then we suctioned out, sent this culture and we found the patient had significant inflammation around the cecum area. At this moment, we put another two 5 mm trocars in the left lower quadrant area; however, we tried to mobilize the cecum area and tried to identify appendix. Because significant inflammation and scar and the difficult dissection at this moment, we decided to convert to open and I made about a 6 cm on the right lower quadrant incision, dissected subcutaneous layer, reached the external oblique, opened the external oblique, split the muscle and opened the peritoneum and into abdominal cavity without difficulty. Then, we found the patient had significant inflammation around the appendix. Once we dissected the appendix, we found the patient had abscess. There was some pus that came out, we did send the pus for culture. The abscess around the appendix sized about 3 x 4 cm. Once we cleaned the abscess, we mobilized the appendix. We used the Endo-DONNA stapler for transection on the base of appendix. Then, we removed the whole appendix because there was so significant inflammation and scar around the appendix, made a complete removal of appendix, rechecked, no active bleeding and we used 1 gram vancomycin with 500 normal saline and flushed the abdominal cavity. Then, we suctioned all fluid out. Then, we put one 10 mm FORTUNATO drainage on the right lower quadrant abscess area using 3-0 nylon to fix the FORTUNATO on the skin. Again, we rechecked, no active bleeding. Then, I closed the incision fascial layer by using 0 PDS continuous running, closed subcutaneous layer by using 2-0 Vicryl continuous running, closed skin by using staple and then we closed the umbilical incision fascial layer by using 0 Vicryl [id number] x2, closed subcutaneous layer by using 2-0 Vicryl interruptedly, closed skin by using staple. Then, also we injected the local by using 1% lidocaine mixed with 0.5% Marcaine around the incision site. Then, we put the dressing on. The patient tolerated the procedure well. All instrument, needle and sponge counts were correct x2 at the end of the case. The patient was transferred to recovery room in stable condition. The specimen was sent to pathology. After the procedure, I did talk to the patient about the OR finding and the procedure we did, the patient understands. Job ID: [id number] [facility]
[2022-07-31] MEDS ORDERED: GLUCAGON FOR INJ 1 MG VIAL SQ PRN (07:29)
[2022-07-31] MEDS ORDERED: DEXTROSE 50% 50 ML SYRINGE IV PRN (07:29)
[2022-07-31] MEDS ORDERED: GLUCOSE 40% GEL 15 GM TUBE PO PRN (07:29)
[2022-07-31] MEDS ORDERED: GLUCOSE 10 TAB/TUBE PO PRN (07:29)
[2022-07-31] MEDS ORDERED: CARBOHYDRATES FOR HYPOGLYCEMIA PO PRN (07:29)
[2022-07-31] MEDS: ACETAMINOPHEN 1,000 MG/100 ML VIAL IV SCH ×2 (08:57→17:07)
[2022-07-31] MEDS ORDERED: PANTOprazole 40 MG TAB PO SCH (09:00)
[2022-07-31] MEDS ORDERED: NON-FORMULARY MEDICATION (Pen Needle, Diabetic [Bd Nano 2nd Gen Pen Needle] 32 gauge x 5/3 SCH (09:00)
[2022-07-31] MEDS ORDERED: MULTIVITAMIN TAB PO SCH (09:00)
[2022-07-31] MEDS ORDERED: CHOLECALCIFEROL 1,000 UNITS 25 MCG TAB PO SCH (09:00)
[2022-07-31] MEDS ORDERED: buPROPion XL 300 MG TABCR PO SCH (09:00)
[2022-07-31] MEDS: INSULIN ASPART PER UNIT SC SCH ×4 (09:15→20:00)
--- NOTE | 2022-07-31 10:33 | Surgery Progress Note ---
Date of Service July 31, 2022 Assessment & Plan (1) Acute perforated appendicitis: Plan: POD # 1 s/p laparoscopic coverted to open appendectomy for perforated appendicitis with abscess -afebrile postop - moderate to severe postop pain, not well controlled this am - tachycardic likely secondary to pain, H&H stable and hemodynamically stable - drain with bloody serosanguineous output - adequate urine output Plan: Will change IV Dilaudid frequency to q3h as needed. Will add IV toradol as needed and IV Tylenol scheduled. PO pain medication is ordered but likely will need IV pain management today until controlled continue npo continue geovany mondragon to bulb suction continue vargas for now continue IV fluids Continue IV zosyn Continue IV zofran prn nausea appreciate hospitalist comanagement Continue SCDs for dvt prophylaxis Incentive spirometry if pain better controlled hopefully can try to get OOB to chair today abdominal binder as needed Dr. barroso has seen and examined pt, agrees with above. Admission and Anticipated Discharge Date Admission Date: July 30, 2022 Subjective having a lot of pain, mostly in the left lower abdomen at drain site some nausea feeling loopy and out of it this morning per nurse she had gotten Dilaudid 1 mg and 0.5 mg for pain Physical Exam 2 Constitutional: cooperative, + in distress (mild distress due to abdominal pain) and + lethargic Neck: normal visual inspection and trachea midline Respiratory: normal respiratory effort; no respiratory distress, no labored breathing and no retractions Cardiovascular: Rate/Rhythm: + tachycardic Heart Sounds: normal S1 and normal S2 Gastrointestinal (Abdomen): Inspection/Auscultation: abdomen normal to inspection, + abdominal surgical incision ( covered with clean/dry/intact dressings) and + abdominal surgical drain present (bloody serosanguineous); abdomen not distended Percussion/Palpation: + abdomen tender (at incision and drain site), + guarding (voluntary at incision and drain site) and abdomen soft; abdomen not rigid and abdomen not firm Skin: no rashes, warm and dry Psychiatric: Orientation: alert and oriented x 3 Affect: + tearful affect Results & Data ([facility]) Vital Signs (Past 12 Hours) Vital Signs Temp Pulse Pulse Resp BP BP Pulse Ox 07/31/22 05:40 36.6 C 117 H 12 136/84 95 07/31/22 05:30 37.6 C H 122 H 14 144/84 H 91 07/31/22 05:19 37.4 C 115 H 16 137/85 92 07/31/22 05:11 37.6 C H 116 H 16 123/61 91 07/31/22 00:41 126 H 07/31/22 00:00 38.1 C H 124 H 16 123/61 93 07/30/22 23:49 37.4 C 140 H 127/73 07/30/22 23:00 128 H 16 115/75 07/30/22 22:30 128 H 15 O2 Del Method O2 Flow Rate 07/31/22 05:40 Oxymask 2 07/31/22 05:30 Room Air 07/31/22 05:19 Oxymask 2 07/31/22 05:11 Room Air 07/31/22 00:41 07/31/22 00:00 Room Air 07/30/22 23:49 07/30/22 23:00 07/30/22 22:30 Laboratory Results 07/31/22 07/31/22 07/31/22 Range/Units 09:11 06:08 06:08 WBC 18.35 H (4.8-10.8) K/ul RBC 3.37 L (4.20-5.40) M/uL Hgb 10.6 L (12.0-16.0) g/dl Hct 31.5 L (37.0-47.0) % MCV 93.5 (80.0-100.0) fL MCH 31.5 (25.0-34.0) pg MCHC 33.7 (32.0-36.0) g/dL RDW Std Deviation 39.0 (36.4-46.3) fL RDW Coeff of Claudio 11.4 L (11.5-14.5) % Plt Count 269 (130-400) K/uL MPV 10.3 (9.4-12.4) fL Immature Gran % (Auto) 0.4 % Neut % (Auto) 87.6 % Lymph % (Auto) 5.1 % Barron % (Auto) 6.5 % Eos % (Auto) 0.2 % Baso % (Auto) 0.2 % Neut # (Auto) 16.05 H (1.40-6.50) K/uL Lymph # (Auto) 0.94 L (1.2-3.4) K/uL Barron # (Auto) 1.20 H (0.11-0.59) K/uL Eos # (Auto) 0.04 (0-0.50) K/uL Baso # (Auto) 0.04 (0-0.2) K/uL Immature Gran # (Auto) 0.08 (0.01-0.20) K/uL D-Dimer (0-500) ug/L FEU Sodium 135 L (136-145) mmol/L Potassium 4.1 (3.5-5.1) mmol/L Chloride 101 (98-107) mmol/L Carbon Dioxide 24 (21-32) mmol/L Anion Gap 10 (3-11) BUN 8 (6-23) mg/dl Creatinine 0.55 L (0.6-1.2) mg/dl Est Cr Clr Drug Dosing 160.4 ml/min Est GFR ( Amer) 140.8 ml/min Est GFR (Non-Af Amer) 121.5 ml/min BUN/Creatinine Ratio 14.5 (10-20) Glucose 248 H (70-99(Fasting)) mg/dl POC Glucose 234 H (70-99) mg/dl Calcium 7.8 L D (8.5-10.1) mg/dl Magnesium (1.7-2.4) mg/dl Total Bilirubin 0.8 (0.2-1.0) mg/dl AST 11 L (13-39) U/L ALT 8 (7-52) U/L Alkaline Phosphatase 66 (34-104) U/L Troponin I High Sens (0-14) pg/ml Total Protein 6.1 D (6.0-8.3) gm/dl Albumin 3.4 (3.4-5.0) gm/dl Globulin 2.7 (2.5-4.0) gm/dl Albumin/Globulin Ratio 1.3 (0.9-2) TSH (0.300-4.500) uIu/ml Urine Color Urine Appearance (Clear) Urine pH (4.5-7.5) Ur Specific [place] (1.000-1.030) Urine Protein (Negative) Urine Glucose (UA) (Negative) Urine Ketones (Negative) Urine Blood (Negative) Urine Nitrite (Negative) Urine Bilirubin (Negative) Urine Urobilinogen (Negative) Ur Leukocyte Esterase (Negative) Urine WBC (Auto) (0-5) /hpf Urine RBC (Auto) (0-4) /hpf U Hyaline Cast (Auto) (0-5) /lpf U Epithel Cells (Auto) (0-5) /lpf Urine Bacteria (Auto) (Negative) POC Ur Test (NEG) SARS-CoV-2, RNA, NAAT (NEGATIVE) 07/31/22 07/30/22 07/30/22 Range/Units 05:07 17:38 13:46 WBC (4.8-10.8) K/ul RBC (4.20-5.40) M/uL Hgb (12.0-16.0) g/dl Hct (37.0-47.0) % MCV (80.0-100.0) fL MCH (25.0-34.0) pg MCHC (32.0-36.0) g/dL RDW Std Deviation (36.4-46.3) fL RDW Coeff of Claudio (11.5-14.5) % Plt Count (130-400) K/uL MPV (9.4-12.4) fL Immature Gran % (Auto) % Neut % (Auto) % Lymph % (Auto) % [place] % (Auto) % Eos % (Auto) % Baso % (Auto) % Neut # (Auto) (1.40-6.50) K/uL Lymph # (Auto) (1.2-3.4) K/uL [place] # (Auto) (0.11-0.59) K/uL Eos # (Auto) (0-0.50) K/uL Baso # (Auto) (0-0.2) K/uL Immature Gran # (Auto) (0.01-0.20) K/uL D-Dimer (0-500) ug/L FEU Sodium (136-145) mmol/L Potassium (3.5-5.1) mmol/L Chloride (98-107) mmol/L Carbon Dioxide (21-32) mmol/L Anion Gap (3-11) BUN (6-23) mg/dl Creatinine (0.6-1.2) mg/dl Est Cr Clr Drug Dosing ml/min Est GFR ( Amer) ml/min Est GFR (Non-Af Amer) ml/min BUN/Creatinine Ratio (10-20) Glucose (70-99(Fasting)) mg/dl POC Glucose 225 H (70-99) mg/dl Calcium (8.5-10.1) mg/dl Magnesium (1.7-2.4) mg/dl Total Bilirubin (0.2-1.0) mg/dl AST (13-39) U/L ALT (7-52) U/L Alkaline Phosphatase (34-104) U/L Troponin I High Sens (0-14) pg/ml Total Protein (6.0-8.3) gm/dl Albumin (3.4-5.0) gm/dl Globulin (2.5-4.0) gm/dl Albumin/Globulin Ratio (0.9-2) TSH (0.300-4.500) uIu/ml Urine Color Urine Appearance (Clear) Urine pH (4.5-7.5) Ur Specific [place] (1.000-1.030) Urine Protein (Negative) Urine Glucose (UA) (Negative) Urine Ketones (Negative) Urine Blood (Negative) Urine Nitrite (Negative) Urine Bilirubin (Negative) Urine Urobilinogen (Negative) Ur Leukocyte Esterase (Negative) Urine WBC (Auto) (0-5) /hpf Urine RBC (Auto) (0-4) /hpf U Hyaline Cast (Auto) (0-5) /lpf U Epithel Cells (Auto) (0-5) /lpf Urine Bacteria (Auto) (Negative) POC Ur Test NEG (NEG) SARS-CoV-2, RNA, NAAT NEGATIVE (NEGATIVE) 07/30/22 07/30/22 07/30/22 Range/Units 13:38 13:38 13:38 WBC (4.8-10.8) K/ul RBC (4.20-5.40) M/uL Hgb (12.0-16.0) g/dl Hct (37.0-47.0) % MCV (80.0-100.0) fL MCH (25.0-34.0) pg MCHC (32.0-36.0) g/dL RDW Std Deviation (36.4-46.3) fL RDW Coeff of Claudio (11.5-14.5) % Plt Count (130-400) K/uL MPV (9.4-12.4) fL Immature Gran % (Auto) % Neut % (Auto) % Lymph % (Auto) % Barron % (Auto) % Eos % (Auto) % Baso % (Auto) % Neut # (Auto) (1.40-6.50) K/uL Lymph # (Auto) (1.2-3.4) K/uL [place] # (Auto) (0.11-0.59) K/uL Eos # (Auto) (0-0.50) K/uL Baso # (Auto) (0-0.2) K/uL Immature Gran # (Auto) (0.01-0.20) K/uL D-Dimer 2400 H* (0-500) ug/L FEU Sodium (136-145) mmol/L Potassium (3.5-5.1) mmol/L Chloride (98-107) mmol/L Carbon Dioxide (21-32) mmol/L Anion Gap (3-11) BUN (6-23) mg/dl Creatinine (0.6-1.2) mg/dl Est Cr Clr Drug Dosing ml/min Est GFR ( Amer) ml/min Est GFR (Non-Af Amer) ml/min BUN/Creatinine Ratio (10-20) Glucose (70-99(Fasting)) mg/dl POC Glucose (70-99) mg/dl Calcium (8.5-10.1) mg/dl Magnesium (1.7-2.4) mg/dl Total Bilirubin (0.2-1.0) mg/dl AST (13-39) U/L ALT (7-52) U/L Alkaline Phosphatase (34-104) U/L Troponin I High Sens (0-14) pg/ml Total Protein (6.0-8.3) gm/dl Albumin (3.4-5.0) gm/dl Globulin (2.5-4.0) gm/dl Albumin/Globulin Ratio (0.9-2) TSH 1.244 (0.300-4.500) uIu/ml Urine Color Yellow Urine Appearance Cloudy A (Clear) Urine pH 8.0 H (4.5-7.5) Ur Specific [place] 1.030 (1.000-1.030) Urine Protein 2+ H (Negative) Urine Glucose (UA) 2+ H (Negative) Urine Ketones 2+ H (Negative) Urine Blood 1+ H (Negative) Urine Nitrite Negative (Negative) Urine Bilirubin Negative (Negative) Urine Urobilinogen Negative (Negative) Ur Leukocyte Esterase Negative (Negative) Urine WBC (Auto) 1-5 (0-5) /hpf Urine RBC (Auto) >30 H (0-4) /hpf U Hyaline Cast (Auto) 1-5 (0-5) /lpf U Epithel Cells (Auto) >30 H (0-5) /lpf Urine Bacteria (Auto) 1+ H (Negative) POC Ur Test (NEG) SARS-CoV-2, RNA, NAAT (NEGATIVE) 07/30/22 07/30/22 Range/Units 13:38 13:38 WBC 16.70 H (4.8-10.8) K/ul RBC 4.02 L (4.20-5.40) M/uL Hgb 12.6 (12.0-16.0) g/dl Hct 37.0 (37.0-47.0) % MCV 92.0 (80.0-100.0) fL MCH 31.3 (25.0-34.0) pg MCHC 34.1 (32.0-36.0) g/dL RDW Std Deviation 38.4 (36.4-46.3) fL RDW Coeff of Claudio 11.2 L (11.5-14.5) % Plt Count 326 (130-400) K/uL MPV 10.4 (9.4-12.4) fL Immature Gran % (Auto) 0.3 % Neut % (Auto) 86.7 % Lymph % (Auto) 6.3 % Barron % (Auto) 6.1 % Eos % (Auto) 0.4 % Baso % (Auto) 0.2 % Neut # (Auto) 14.48 H (1.40-6.50) K/uL Lymph # (Auto) 1.05 L (1.2-3.4) K/uL [place] # (Auto) 1.02 H (0.11-0.59) K/uL Eos # (Auto) 0.07 (0-0.50) K/uL Baso # (Auto) 0.03 (0-0.2) K/uL Immature Gran # (Auto) 0.05 (0.01-0.20) K/uL D-Dimer (0-500) ug/L FEU Sodium 136 (136-145) mmol/L Potassium 3.9 (3.5-5.1) mmol/L Chloride 95 L (98-107) mmol/L Carbon Dioxide 32 (21-32) mmol/L Anion Gap 9 (3-11) BUN 11 (6-23) mg/dl Creatinine 0.56 L (0.6-1.2) mg/dl Est Cr Clr Drug Dosing 154.4 ml/min Est GFR ( Amer) 140.0 ml/min Est GFR (Non-Af Amer) 120.8 ml/min BUN/Creatinine Ratio 19.6 (10-20) Glucose 196 H (70-99(Fasting)) mg/dl POC Glucose (70-99) mg/dl Calcium 9.9 (8.5-10.1) mg/dl Magnesium 1.7 (1.7-2.4) mg/dl Total Bilirubin 0.5 (0.2-1.0) mg/dl AST 9 L (13-39) U/L ALT 9 (7-52) U/L Alkaline Phosphatase 83 (34-104) U/L Troponin I High Sens 3.0 (0-14) pg/ml Total Protein 7.7 (6.0-8.3) gm/dl Albumin 4.4 (3.4-5.0) gm/dl Globulin 3.3 (2.5-4.0) gm/dl Albumin/Globulin Ratio 1.3 (0.9-2) TSH (0.300-4.500) uIu/ml Urine Color Urine Appearance (Clear) Urine pH (4.5-7.5) Ur Specific [place] (1.000-1.030) Urine Protein (Negative) Urine Glucose (UA) (Negative) Urine Ketones (Negative) Urine Blood (Negative) Urine Nitrite (Negative) Urine Bilirubin (Negative) Urine Urobilinogen (Negative) Ur Leukocyte Esterase (Negative) Urine WBC (Auto) (0-5) /hpf Urine RBC (Auto) (0-4) /hpf U Hyaline Cast (Auto) (0-5) /lpf U Epithel Cells (Auto) (0-5) /lpf Urine Bacteria (Auto) (Negative) POC Ur Test (NEG) SARS-CoV-2, RNA, NAAT (NEGATIVE)
[2022-07-31] MEDS: KETOROLAC TROMETHAMINE 15 MG/ML VIAL IV PRN ×2 (12:29→19:28)
[2022-07-31] MEDS: PANTOprazole 40 MG in SYRINGE 0 ML IV SCH (12:30)
[2022-07-31] MEDS: HYDROmorphone INJ 0.5 MG/0.5 ML SYR IV PRN (15:02)
--- NOTE | 2022-07-31 18:21 | Communication Note ---
Date of Service: July 31, 2022 Seen in follow-up. Pain under reasonable control. Sugars improving. Extensive discussion on management. Patient expressed good understanding and appreciation of care.
[2022-07-31] MEDS: VORTIOXETINE HYDROBROMIDE 10 MG PO SCH (19:29)
[2022-07-31] MEDS ORDERED: metFORMIN HCL 500 MG TAB PO SCH (21:00)
[2022-07-31] MEDS ORDERED: PROMETHAZINE HCL 25 MG TAB PO ONE (21:27)
[2022-07-31] MEDS: MELATONIN 3 MG TAB PO PRN (21:44)
[2022-07-31] MEDS: HYDROCODONE/ACETAMOPHEN 5/325MG TAB PO PRN (22:14)
[2022-08-01] MEDS: ACETAMINOPHEN 1,000 MG/100 ML VIAL IV SCH ×3 (00:16→13:37)
[2022-08-01] MEDS: PIPERACILLIN/TAZOBACTAM 3.375 GM in DEXTROSE 5% 100 ML IV SCH ×3 (00:42→17:07)
[2022-08-01] MEDS: HYDROmorphone INJ 0.5 MG/0.5 ML SYR IV PRN ×3 (00:42→18:01)
[2022-08-01] MEDS: LACTATED RINGER'S 1,000 ML IV SCH ×2 (04:18→14:23)
[2022-08-01] MEDS: HYDROCODONE/ACETAMOPHEN 5/325MG TAB PO PRN ×3 (04:20→21:20)
[2022-08-01] MEDS: PANTOprazole 40 MG in SYRINGE 0 ML IV SCH (07:40)
[2022-08-01 07:53] LABS: Basophils # (auto) 0.02 K/uL (0-0.2); Basophils % (auto) 0.2 %; Eosinophils # (auto) 0.19 K/uL (0-0.50); Eosinophils % (auto) 1.7 %; Hemoglobin 9.2 g/dl (12.0-16.0); Immature Granulocytes # (auto) 0.18 K/uL (0.01-0.20); Immature Granulocytes % (auto) 1.6 %; Lymphocytes # (auto) 1.34 K/uL (1.2-3.4); Lymphocytes % (auto) 12.2 %; Mean Corpuscular Hemoglobin 31.4 pg (25.0-34.0); Mean Corpuscular Hgb Conc 32.9 g/dL (32.0-36.0); Mean Corpuscular Volume 95.6 fL (80.0-100.0); Mean Platelet Volume 10.3 fL (9.4-12.4); Monocytes # (auto) 0.88 K/uL (0.11-0.59); Neutrophils # (auto) 8.35 K/uL (1.40-6.50); Neutrophils % (auto) 76.3 %; Platelet Count 247 K/uL (130-400); RDW Coefficient of Variation 11.6 % (11.5-14.5); RDW Standard Deviation 40.5 fL (36.4-46.3); Red Blood Count 2.93 M/uL (4.20-5.40); White Blood Count 10.96 K/ul (4.8-10.8)
--- NOTE | 2022-08-01 08:10 | Hospitalist Progress Note ---
Date of Service August 01, 2022 Assessment & Plan (1) Type 2 diabetes mellitus: Plan: Verito is a 37 year old female w/ PmHx diabetes mellitus type 2, GERD, anxiety/depression admitted to surgical service for ruptured appendix. T2DM: -Follows with diabetes clinic outpatient on metformin and Victoza. -A1c from 07/05 6.8. -Hold home metformin while inpatient, SSI ordered, hypoglycemia protocol. -BSG ACHS or q6h while NPO. --- Advanced to clears, continue SSI, glucose levels at goal (100-200) Nausea/Vomiting: -QTc 548 from EKG this admission. -Given 4mg zofran and 6.25mg Phenergan post op for nausea and vomiting. -Will stick to lower doses for now on as needed basis given QTc. --- Phenergan received overnight w/ benefit Leukocytosis: -WBC 16.70 on arrival, 18.35 this AM. -May be multifactorial w/ possible infection from ruptured appendix as well as stress from surgery. -Agree with surgical team plan for IV Zosyn q8h. -Cont to monitor. --- Downtrending, 10.96, Hgb 9.2 Dyslipidemia: -Hold atorvastatin while NPO. GERD: -Hold home esomeprazole, continue pantoprazole per surgical team. Anxiety/depression: -Hold home bupropion and vortioxetine while NPO. --- Restart home medications Acute perforated appendicitis: -Continue plan per surgical team. --- Aceves removed in AM, continues to advance diet, light ambulation tolerated --- Management per surgical team Dispo: Med/tele FEN: Clear liquid (advance per surgery recommendation) Code: Full Dispo: Per surgery recommendation (2) Anxiety: (3) Depression: (4) Dyslipidemia: (5) Acute perforated appendicitis: (6) Leukocytosis: Admission and Anticipated Discharge Date Admission Date: July 30, 2022 Supervising Physician Co-Signing Physician Notes I personally examined the patient and verified all issa points of history and exam, discussed case, and agree with decision making with Dr Padilla Feeling better overall. Tolerating clears. Walked around somethinks she overdid it, but pain under better control. Sugars noted, reasonable control. CBC/basic metabolic panel reviewed as well. Rib raising donebilateral lower thoracic spine paraspinals, high tone tender decreased range of motiondirect myofascial/inhibitory pressure with improvement. Breathing unlabored. Exam overall benign/reassuring as above Perforated appendicitis with abdominal sepsis present on admissionZosyn, postop, improving nicely. Well-controlled type 2 diabetescontinue insulin management Long QTstrongly suspect with situational. Repeat EKG in the morning Risk high due to abdominal sepsis, insulin management, otherwise as above. Subjective 2/2: Patient notes that she is feeling improved today. Her pain is controlled, she is tolerating clear liquid diet w/o difficulty. She notes that she walked two laps around the floor last evening and this caused significant abdominal pain, which calmed after rest. She requests removal over her Aceves catheter and feels as though she is passing gas. Discussed restarting patient's home medications as she is now off NPO, patient agreeable. She expressed no new questions or concerns. She denies fevers, chills, chest pain, or dyspnea. Incisional pain is ongoing at 6/10. Review of Systems Review of Systems: As per HPI. Physical Exam Physical Exam: Gen: NAD, alert, fatigued HEENT: Supple, no LAD, no JVD Resp:Non-labored, no wheezing/rhonchi/rales, CTAB CV:RRR, normal S1/S2, no M/R/G Abd: Soft, non-distended, tenderness to light touch, normoactive bowels, no masses Incision: Surgical bandage intact, no surrounding erythema or purulence, serosanguineous fluid in drain Extr: 2+ dp bilaterally, no edema Skin: No rashes lesions or erythema Results & Data Results & Data ([facility]) Vital Signs (Past 12 Hours) Vital Signs Temp Pulse Pulse Resp BP Pulse Ox O2 Del Method 08/01/22 08:03 37.0 C 112 H 19 125/80 92 Room Air 08/01/22 03:16 37.3 C 106 H 18 111/71 91 Room Air 08/01/22 00:53 114 H 07/31/22 23:00 Room Air 07/31/22 23:11 37 C 118 H 18 123/81 94 Room Air Resident Activity Tracking Resident Involvement: Resident Care Provided Care Provided: Adult [facility]
[2022-08-01 09:00] LABS: Calcium 7.8 mg/dl (8.5-10.1); Potassium 4.2 mmol/L (3.5-5.1)
[2022-08-01 09:05] LABS: BUN Creatinine Ratio 8.8 (10-20); Creatinine Clr Calc Pharmacy 154.7 ml/min; Est GFR (African American) 139.2 ml/min; Est GFR (Non-African American) 120.1 ml/min
[2022-08-01] MEDS: buPROPion XL 300 MG TABCR PO SCH (09:09)
[2022-08-01] MEDS: KETOROLAC TROMETHAMINE 15 MG/ML VIAL IV PRN (09:21)
[2022-08-01] MEDS: INSULIN ASPART PER UNIT SC SCH ×4 (09:54→21:21)
[2022-08-01] MEDS ORDERED: bisacodyL 5 MG TABEC PO ONE ×2 (10:55→13:34)
--- NOTE | 2022-08-01 11:17 | Surgery Progress Note ---
Date of Service August 01, 2022 Assessment & Plan (1) Acute perforated appendicitis: Plan: POD # 1 s/p laparoscopic converted to open appendectomy for perforated appendicitis with abscess -afebrile postop - moderate to severe postop pain, not well controlled this am - tachycardic likely secondary to pain, H&H stable and hemodynamically stable - drain with bloody serosanguineous output - adequate urine output Plan: Will change IV Dilaudid frequency to q3h as needed. Will add IV toradol as needed and IV Tylenol scheduled. PO pain medication is ordered but likely will need IV pain management today until controlled continue npo continue geovany mondragon to bulb suction continue vargas for now continue IV fluids Continue IV zosyn Continue IV zofran prn nausea appreciate hospitalist comanagement Continue SCDs for dvt prophylaxis Incentive spirometry if pain better controlled hopefully can try to get OOB to chair today abdominal binder as needed Dr. barroso has seen and examined pt, agrees with above. 08/01/2022 11:20 AM Grant Urbano F /U appendectomy, GEOVANY drainage, doing better, no nausea, no vomiting, no BM yet, continue iv antibiotic, control pain, OOB dulcolax 10 mg po x 1 repeat labs in morning, will F/U, Admission and Anticipated Discharge Date Admission Date: July 30, 2022 Subjective having a lot of pain, mostly in the left lower abdomen at drain site some nausea feeling loopy and out of it this morning per nurse she had gotten Dilaudid 1 mg and 0.5 mg for pain 08/01/2022 11: [address] Barroso F/U S/P appendectomy, POD 1 pt is doing better, good control incision pain, no nausea, no vomiting, T 37.2. GEOVANY 255ml, clear color, Review of Systems Constitutional: as per Subjective / HPI Eyes: as per Subjective / HPI Respiratory: as per Subjective / HPI Cardiovascular: as per Subjective / HPI and + problem reported (dyslipidemia) Gastrointestinal: GERD Musculoskeletal: as per Subjective / HPI Neurologic: as per Subjective / HPI Psychiatric: anxiety, depression Endocrine: simple goiter Hematologic / Lymphatic: vitamin D deficiency Physical Exam Constitutional: WD/WN, vitals as above Eyes: PERRL, conjunctivae normal, anicteric sclerae Neck: trachea midline, no thyromegaly Respiratory: normal respiratory effort, lungs clear to auscultation Cardiovascular: RRR, no murmur, no edema Gastrointestinal (Abdomen): soft, mild tenderness at incision site, no rebound pain, no distend, BS +, the incision intact, no redness, Musculoskeletal: no cyanosis or clubbing, extremities motor strength 5/5 Neurologic: patellar DTR's 2+ bilat, sensation intact Psychiatric: A+Ox3, euthymic affect Results & Data ([facility]) Vital Signs (Past 12 Hours) Vital Signs Temp Pulse Pulse Resp BP Pulse Ox O2 Del Method 08/01/22 08:00 103 H 08/01/22 10:33 37.2 C 118 H 18 130/80 95 Room Air 08/01/22 08:03 37.0 C 112 H 19 125/80 92 Room Air 08/01/22 03:16 37.3 C 106 H 18 111/71 91 Room Air 08/01/22 00:53 114 H Laboratory Results Abnormal lab results 07/31/22 07/31/22 07/31/22 Range/Units 12:33 16:20 19:58 WBC (4.8-10.8) K/ul RBC (4.20-5.40) M/uL Hgb (12.0-16.0) g/dl Hct (37.0-47.0) % Neut # (Auto) (1.40-6.50) K/uL [place] # (Auto) (0.11-0.59) K/uL BUN (6-23) mg/dl Creatinine (0.6-1.2) mg/dl BUN/Creatinine Ratio (10-20) Glucose (70-99(Fasting)) mg/dl POC Glucose 192 H 152 H 168 H (70-99) mg/dl Calcium (8.5-10.1) mg/dl 08/01/22 08/01/22 08/01/22 Range/Units 06:32 06:32 07:36 WBC 10.96 H (4.8-10.8) K/ul RBC 2.93 L (4.20-5.40) M/uL Hgb 9.2 L (12.0-16.0) g/dl Hct 28.0 L (37.0-47.0) % Neut # (Auto) 8.35 H (1.40-6.50) K/uL [place] # (Auto) 0.88 H (0.11-0.59) K/uL BUN 5 L (6-23) mg/dl Creatinine 0.57 L (0.6-1.2) mg/dl BUN/Creatinine Ratio 8.8 L (10-20) Glucose 140 H (70-99(Fasting)) mg/dl POC Glucose 147 H (70-99) mg/dl Calcium 7.8 L (8.5-10.1) mg/dl
[2022-08-01] MEDS ORDERED: ACETAMINOPHEN 1,000 MG/100 ML VIAL IV PRN (16:34)
--- NOTE | 2022-08-01 18:30 | Billing Data ---
Date of Service August 01, 2022 Coding Level of Care Code 32780 SUB INP/OBS CARE MIN
[2022-08-01] MEDS: MELATONIN 3 MG TAB PO PRN (21:20)
[2022-08-01] MEDS: VORTIOXETINE HYDROBROMIDE 10 MG PO SCH (21:22)
[2022-08-01] MEDS: ONDANSETRON INJ 2 MG/ML 2 ML VIAL IV PRN (22:14)
--- NOTE | 2022-08-01 22:44 | Billing Data ---
Date of Service August 01, 2022 Coding Level of Care Code INP/OBS CONSULT LVL 3, 45 MIN
[2022-08-02] MEDS: PIPERACILLIN/TAZOBACTAM 3.375 GM in DEXTROSE 5% 100 ML IV SCH ×3 (01:10→17:21)
[2022-08-02] MEDS: HYDROCODONE/ACETAMOPHEN 5/325MG TAB PO PRN ×3 (01:15→08:44)
[2022-08-02] MEDS: LACTATED RINGER'S 1,000 ML IV SCH ×2 (02:16→13:23)
[2022-08-02 06:59] LABS: Basophils # (auto) 0.02 K/uL (0-0.2); Basophils % (auto) 0.2 %; Eosinophils # (auto) 0.23 K/uL (0-0.50); Eosinophils % (auto) 2.3 %; Hematocrit (blood only) 26.2 % (37.0-47.0); Hemoglobin 8.6 g/dl (12.0-16.0); Immature Granulocytes # (auto) 0.04 K/uL (0.01-0.20); Immature Granulocytes % (auto) 0.4 %; Lymphocytes # (auto) 1.37 K/uL (1.2-3.4); Lymphocytes % (auto) 13.9 %; Mean Corpuscular Hgb Conc 32.8 g/dL (32.0-36.0); Mean Corpuscular Volume 94.6 fL (80.0-100.0); Monocytes # (auto) 0.86 K/uL (0.11-0.59); Monocytes % (auto) 8.7 %; Neutrophils # (auto) 7.32 K/uL (1.40-6.50); Neutrophils % (auto) 74.5 %; Platelet Count 260 K/uL (130-400); RDW Coefficient of Variation 11.2 % (11.5-14.5); RDW Standard Deviation 38.6 fL (36.4-46.3); Red Blood Count 2.77 M/uL (4.20-5.40); White Blood Count 9.84 K/ul (4.8-10.8)
[2022-08-02 07:16] LABS: BUN Creatinine Ratio 9.8 (10-20); Calcium 7.9 mg/dl (8.5-10.1); Creatinine Clr Calc Pharmacy 172.9 ml/min; Est GFR (African American) 144.4 ml/min; Est GFR (Non-African American) 124.6 ml/min; Potassium 3.5 mmol/L (3.5-5.1)
--- NOTE | 2022-08-02 07:28 | Hospitalist Progress Note ---
Date of Service August 02, 2022 Assessment & Plan (1) Type 2 diabetes mellitus: Plan: Verito is a 37 year old female w/ PmHx diabetes mellitus type 2, GERD, anxiety/depression admitted to surgical service for ruptured appendix. Chronic conditions well controlled, could consider transition to PO antibiotics for discharge to home, return to home management of chronic conditions upon discharge. As patient is stable on current regimen, hospitalist team will sign off. T2DM: -Follows with diabetes clinic outpatient on metformin and Victoza. -A1c from 07/05 6.8. -Hold home metformin while inpatient, SSI ordered, hypoglycemia protocol. -BSG ACHS or q6h while NPO. --- Currently on clear liquid diet, continue SSI, glucose levels at goal (100- 200) --- Continue SSI inpatient, return to home regimen upon discharge, discussed lifestyle modifications to resolve DM Nausea/Vomiting: -QTc 548 from EKG this admission. -Given 4mg zofran and 6.25mg Phenergan post op for nausea and vomiting. -Will stick to lower doses for now on as needed basis given QTc. --- Episode of nausea/emesis overnight provoked by pain laying on side, resolved Leukocytosis: -WBC 16.70 on arrival, 18.35 this AM. -May be multifactorial w/ possible infection from ruptured appendix as well as stress from surgery. -Agree with surgical team plan for IV Zosyn q8h. -Cont to monitor. --- Downtrending, Hgb 8.6, suspect dilutional Dyslipidemia: - Patient no longer NPO --- Restart Atorvastatin 10 mg PO HS GERD: -Hold home esomeprazole, continue pantoprazole per surgical team. --- Continue Pantoprazole per surgical team Anxiety/depression: -Hold home bupropion and vortioxetine while NPO. --- Restart home medications Acute perforated appendicitis: -Continue plan per surgical team. --- Aceves removed, continues to advance diet, ambulation tolerated, pain controlled --- Management per surgical team Dispo: Med/tele FEN: Clear liquid (advance per surgery recommendation) Code: Full Dispo: Per surgery recommendation (2) Anxiety: (3) Depression: (4) Dyslipidemia: (5) Acute perforated appendicitis: (6) Leukocytosis: Admission and Anticipated Discharge Date Admission Date: July 30, 2022 Supervising Physician Co-Signing Physician Notes I personally examined the patient and verified all issa points of history and exam, discussed case, and agree with decision making with Dr Padilla Feeling pretty good overall. Tolerating clears far better. Would very much like to get home in the next day or so. Feels like she would do okay. Only had pain whenever she was lying on her side. Walking more. Vitals noted, in general she is awake and alert pleasant no distress. HEENT normocephalic atraumatic mucous membranes moist. Breathing unlabored no accessory muscle use good effort. Skin shows no rashes no pallor or icterus. EKG, CBC, BMP reviewed. Perforated appendicitis with abdominal sepsis present on admissionZosyn, p ostop, improving nicely. Advance diet as tolerated. Medically appears like she would be okay on p.o. antibiotics and close outpatient follow-up with surgery and her PCP (who is extremely responsive to patient need)but obviously will defer to surgical service in this regard. Well-controlled type 2 diabetescontinue insulin management inpatient, home on home meds. Discussed lifestyle change with intent to put her diabetes in remission. Long QTstrongly suspect with situational. Repeat EKG reviewed and QTC down to 474 Patient medically stable, hospitalist team will sign off. Available if further assistance is needed. Subjective 2/3: Verito continues to improve, she notes that she was able to ambulate around the floor with her family last evening w/o difficulty. She mentions an episode of emesis 2/2 pain while attempting to sleep on her side last evening, but this has resolved. She notes that she continues to have a poor appetite, but states that this is not 2/2 pain, she states that she is avoiding her clear liquids d/t flavor and has no GI upset with jello/yi ice. She is passing gas well and urinating without Aceves. She denies any fevers, chills, chest pain, or dyspnea. Incisional pain is 5/10 today and well controlled with medication. Discussed patient's home diet and exercise routine. Review of Systems Review of Systems: As per HPI. Physical Exam Physical Exam: Gen: NAD, alert, interactive Resp:Non-labored, no wheezing/rhonchi/rales, CTAB CV:RRR, normal S1/S2, no M/R/G Abd: Soft, non-distended, TTP around surgical site in RLQ, + bowel sounds, no masses Incision: Surgical bandage intact, no surrounding erythema or purulence, serous fluid in drain Extr: 2+ dp bilaterally, no edema Skin: No rashes lesions or erythema Results & Data Results & Data ([facility]) Vital Signs (Past 12 Hours) Vital Signs Temp Pulse Pulse Resp BP Pulse Ox O2 Del Method 08/02/22 02:35 36.8 C 103 H 18 120/74 93 Room Air 08/01/22 23:00 120 H 08/01/22 23:00 103 H 08/01/22 23:00 37.5 C 112 H 18 113/78 91 Room Air 08/01/22 19:35 37.5 C 117 H 18 125/85 96 Room Air Resident Activity Tracking Resident Involvement: Resident Care Provided Care Provided: Adult Hospital Medicine
[2022-08-02] MEDS: HYDROmorphone INJ 0.5 MG/0.5 ML SYR IV PRN ×2 (08:23→11:07)
[2022-08-02] MEDS: buPROPion XL 300 MG TABCR PO SCH (08:24)
[2022-08-02] MEDS: INSULIN ASPART PER UNIT SC SCH ×4 (08:25→20:55)
--- NOTE | 2022-08-02 11:23 | Surgery Progress Note ---
Date of Service August 02, 2022 Assessment & Plan (1) Acute perforated appendicitis: Plan: POD # 2.5 s/p laparoscopic converted to open appendectomy for perforated appendicitis with abscess -afebrile postop - moderate postop pain, controlled - tachycardic likely secondary to pain, Hbg down to 8 but likely dilutional - drain with serous output - adequate urine output Plan: continue pain mangaement continue clear liquids, possible full liquids for dinner continue geovany drian to bulb suction, will go home with geovany drain continue IV fluids Continue IV zosyn Continue IV zofran prn nausea Continue SCDs for dvt prophylaxis Incentive spirometry abdominal binder as needed [facility] surgery covering this weekend. Dr. Burns has seen and examined pt agrees with above. Admission and Anticipated Discharge Date Admission Date: July 30, 2022 Subjective pain moderate but controlled urinating without difficulty has one episode of vomiting last night but thought it was due to trying to sleep on her side no consistent nausea tolerating clears but little appetite, not taking in much no chest pain or shortness of breath ambulating hallway Physical Exam Constitutional: WD/WN, vitals as above cooperative and comfortable; no acute distress and not ill appearing Neck: normal visual inspection and trachea midline Respiratory: normal respiratory effort; no respiratory distress and no labored breathing Gastrointestinal (Abdomen): Inspection/Auscultation: abdomen normal to inspection, + abdominal surgical incision (clean/dry/intact with esme, mild edema at RLQ incision), + abdominal surgical drain present (serous output) and + hypoactive bowel sounds; abdomen not distended and + abnormal bowel sounds Percussion/Palpation: + abdomen tender (at incision site appropriate postop) and abdomen soft; no guarding and abdomen not rigid Skin: no rashes, warm and dry Psychiatric: A+Ox3, euthymic affect Results & Data ([facility]) Vital Signs (Past 12 Hours) Vital Signs Temp Pulse Pulse Resp BP Pulse Ox O2 Del Method 08/02/22 08:00 110 H 08/02/22 02:35 36.8 C 103 H 18 120/74 93 Room Air Laboratory Results 08/02/22 08/02/22 08/02/22 Range/Units 11:04 06:27 06:27 WBC 9.84 (4.8-10.8) K/ul RBC 2.77 L (4.20-5.40) M/uL Hgb 8.6 L (12.0-16.0) g/dl Hct 26.2 L (37.0-47.0) % MCV 94.6 (80.0-100.0) fL MCH 31.0 (25.0-34.0) pg MCHC 32.8 (32.0-36.0) g/dL RDW Std Deviation 38.6 (36.4-46.3) fL RDW Coeff of Claudio 11.2 L (11.5-14.5) % Plt Count 260 (130-400) K/uL MPV 10.0 (9.4-12.4) fL Immature Gran % (Auto) 0.4 % Neut % (Auto) 74.5 % Lymph % (Auto) 13.9 % Parmer % (Auto) 8.7 % Eos % (Auto) 2.3 % Baso % (Auto) 0.2 % Neut # (Auto) 7.32 H (1.40-6.50) K/uL Lymph # (Auto) 1.37 (1.2-3.4) K/uL Parmer # (Auto) 0.86 H (0.11-0.59) K/uL Eos # (Auto) 0.23 (0-0.50) K/uL Baso # (Auto) 0.02 (0-0.2) K/uL Immature Gran # (Auto) 0.04 (0.01-0.20) K/uL Sodium 138 (136-145) mmol/L Potassium 3.5 (3.5-5.1) mmol/L Chloride 102 (98-107) mmol/L Carbon Dioxide 28 (21-32) mmol/L Anion Gap 8 (3-11) BUN 5 L (6-23) mg/dl Creatinine 0.51 L (0.6-1.2) mg/dl Est Cr Clr Drug Dosing 172.9 ml/min Est GFR ( Amer) 144.4 ml/min Est GFR (Non-Af Amer) 124.6 ml/min BUN/Creatinine Ratio 9.8 L (10-20) Glucose 137 H (70-99(Fasting)) mg/dl POC Glucose 176 H (70-99) mg/dl Calcium 7.9 L (8.5-10.1) mg/dl 08/01/22 08/01/22 Range/Units 20:02 16:22 WBC (4.8-10.8) K/ul RBC (4.20-5.40) M/uL Hgb (12.0-16.0) g/dl Hct (37.0-47.0) % MCV (80.0-100.0) fL MCH (25.0-34.0) pg MCHC (32.0-36.0) g/dL RDW Std Deviation (36.4-46.3) fL RDW Coeff of Claudio (11.5-14.5) % Plt Count (130-400) K/uL MPV (9.4-12.4) fL Immature Gran % (Auto) % Neut % (Auto) % Lymph % (Auto) % Parmer % (Auto) % Eos % (Auto) % Baso % (Auto) % Neut # (Auto) (1.40-6.50) K/uL Lymph # (Auto) (1.2-3.4) K/uL Parmer # (Auto) (0.11-0.59) K/uL Eos # (Auto) (0-0.50) K/uL Baso # (Auto) (0-0.2) K/uL Immature Gran # (Auto) (0.01-0.20) K/uL Sodium (136-145) mmol/L Potassium (3.5-5.1) mmol/L Chloride (98-107) mmol/L Carbon Dioxide (21-32) mmol/L Anion Gap (3-11) BUN (6-23) mg/dl Creatinine (0.6-1.2) mg/dl Est Cr Clr Drug Dosing ml/min Est GFR ( Amer) ml/min Est GFR (Non-Af Amer) ml/min BUN/Creatinine Ratio (10-20) Glucose (70-99(Fasting)) mg/dl POC Glucose 179 H 176 H (70-99) mg/dl Calcium (8.5-10.1) mg/dl
[2022-08-02] MEDS: PANTOprazole 40 MG in SYRINGE 0 ML IV SCH (11:59)
--- NOTE | 2022-08-02 12:04 | Electrocardiogram Report ---
Test Reason : Blood Pressure : / mmHG Vent. Rate : 098 BPM Atrial Rate : 098 BPM P-R Int : 136 ms QRS Dur : 108 ms QT Int : 372 ms P-R-T Axes : 062 013 029 degrees QTc Int : 474 ms Normal sinus rhythm Incomplete right bundle branch block Nonspecific T wave abnormality Prolonged QT Abnormal ECG When compared with ECG of 30-JUL-2022 13:14, Vent. rate has decreased BY 48 BPM Confirmed by Vincent Marie ([id number]) on 08/02/2022 12:04:48 PM Referred By: REFERRED SELF Confirmed By:Vincent Marie
[2022-08-02] MEDS ORDERED: HYDROcodone/ACETAMINOPHEN 10/325 TAB PO PRN (12:39)
[2022-08-02] MEDS ORDERED: ACETAMINOPHEN 325 MG TAB PO PRN (12:47)
[2022-08-02] MEDS ORDERED: HYDROCODONE/ACETAMOPHEN 5/325MG TAB PO PRN ×2 (12:47→12:49)
--- NOTE | 2022-08-02 17:12 | Billing Data ---
Date of Service August 02, 2022 Coding Level of Care Code 41803 SUB INP/OBS CARE
[2022-08-02] MEDS: HYDROcodone/ACETAMINOPHEN 10/325 TAB PO PRN ×2 (17:58→22:47)
[2022-08-02] MEDS: ATORVASTATIN 10 MG TAB PO SCH (20:46)
[2022-08-02] MEDS: VORTIOXETINE HYDROBROMIDE 10 MG PO SCH (20:47)
[2022-08-02] MEDS: ONDANSETRON INJ 2 MG/ML 2 ML VIAL IV PRN (21:41)
[2022-08-02] MEDS: MELATONIN 3 MG TAB PO PRN (22:46)
[2022-08-03] MEDS: PIPERACILLIN/TAZOBACTAM 3.375 GM in DEXTROSE 5% 100 ML IV SCH ×3 (00:35→17:18)
[2022-08-03] MEDS: HYDROcodone/ACETAMINOPHEN 10/325 TAB PO PRN ×3 (03:50→19:59)
--- NOTE | 2022-08-03 05:41 | Surgery Progress Note ---
Date of Service August 03, 2022 Assessment & Plan (1) Acute perforated appendicitis: Plan: Status post open appendectomy on 07/31/2022 (postop day #3) Continue analgesics Continue antiemetics Continue FORTUNATO drain to bulb suction (patient will go home with this drain in place and have it addressed in the office at follow-up) Continue antibiotics in the form of Zosyn while hospitalized Increase activity as able Encourage use of incentive spirometry We will continue full liquid for the present time and consider further diet advancement once bowel function continues to improve Check a.m. labs when available Continue SCDs for DVT prevention Admission and Anticipated Discharge Date Admission Date: July 30, 2022 Supervising Physician Co-Signing Physician Notes I personally saw and evaluated the patient with Tin Longoria PA-C and agree with the assessment and plan 37-year-old female status post laparoscopic converted to open appendectomy for severe acute perforated appendicitis She is tolerating full liquids, will advance to low fiber diet today Continue IV antibiotics for another 24 hours Pain control as needed Keep FORTUNATO in place, she will go home with this If she continues to improve we will plan on sending her home tomorrow Subjective Patient is resting comfortably in bed. She notes her pain is well controlled. She notes she has not had a bowel movement since surgery but is passing flatus. She denies any nausea or vomiting. She denies any palpitations. No fevers, shakes, or chills noted. Discussed with bedside nurse who notes her been no issues overnight other than a slight tachycardia the patient is exhibiting. Physical Exam Gastrointestinal (Abdomen): Abdomen is soft, nonrigid, nondistended. Incisions are clean, dry, intact. Patient has minor pain with palpation near incisions. FORTUNATO drain is in place draining serous fluid. It is drained approximately 55 cc past 24 hours. Bowel sounds are hypoactive. Results & Data ([facility]) Vital Signs (Past 12 Hours) Vital Signs Temp Pulse Pulse Resp BP BP Pulse Ox 08/03/22 03:00 37.1 C 104 H 18 120/87 95 08/02/22 23:57 36.6 C 106 H 18 113/77 97 08/02/22 23:00 97 H 08/02/22 19:29 37.0 C 100 H 16 136/85 95 O2 Del Method 08/03/22 03:00 Room Air 08/02/22 23:57 Room Air 08/02/22 23:00 02/03/23 19:29 Room Air PG Care Time/CCT Total # of Minutes Spent Total Time Spent with Patient: Total time spent is greater than 50% in coordination of care (as documented) at patient's floor/unit and/or counseling patient: Coding Level of Care Code None Diagnoses Acute perforated appendicitis K35.32
[2022-08-03 06:22] LABS: Basophils # (auto) 0.03 K/uL (0-0.2); Basophils % (auto) 0.3 %; Eosinophils # (auto) 0.27 K/uL (0-0.50); Eosinophils % (auto) 3.1 %; Hematocrit (blood only) 26.1 % (37.0-47.0); Hemoglobin 8.7 g/dl (12.0-16.0); Immature Granulocytes # (auto) 0.03 K/uL (0.01-0.20); Immature Granulocytes % (auto) 0.3 %; Lymphocytes # (auto) 1.31 K/uL (1.2-3.4); Mean Corpuscular Hemoglobin 31.2 pg (25.0-34.0); Mean Corpuscular Hgb Conc 33.3 g/dL (32.0-36.0); Mean Corpuscular Volume 93.5 fL (80.0-100.0); Monocytes # (auto) 0.76 K/uL (0.11-0.59); Monocytes % (auto) 8.7 %; Neutrophils # (auto) 6.34 K/uL (1.40-6.50); Neutrophils % (auto) 72.6 %; Platelet Count 300 K/uL (130-400); RDW Coefficient of Variation 11.3 % (11.5-14.5); RDW Standard Deviation 38.7 fL (36.4-46.3); Red Blood Count 2.79 M/uL (4.20-5.40); White Blood Count 8.74 K/ul (4.8-10.8)
[2022-08-03 06:24] LABS: BUN Creatinine Ratio 6.5 (10-20); Calcium 8.7 mg/dl (8.5-10.1); Creatinine Clr Calc Pharmacy 142.3 ml/min; Est GFR (African American) 135.4 ml/min; Est GFR (Non-African American) 116.8 ml/min; Potassium 3.7 mmol/L (3.5-5.1)
[2022-08-03] MEDS: INSULIN ASPART PER UNIT SC SCH ×4 (08:16→20:18)
[2022-08-03] MEDS: buPROPion XL 300 MG TABCR PO SCH (08:22)
[2022-08-03] MEDS: PANTOprazole 40 MG in SYRINGE 0 ML IV SCH (12:12)
[2022-08-03] MEDS: ATORVASTATIN 10 MG TAB PO SCH (20:00)
[2022-08-03] MEDS: VORTIOXETINE HYDROBROMIDE 10 MG PO SCH (20:01)
[2022-08-03] MEDS ORDERED: LANTUS PER UNIT CHARGE SQ SCH (21:00)
[2022-08-03] MEDS: MELATONIN 3 MG TAB PO PRN (22:03)
[2022-08-03] MEDS: HYDROmorphone INJ 0.5 MG/0.5 ML SYR IV PRN (23:14)
[2022-08-04] MEDS: PIPERACILLIN/TAZOBACTAM 3.375 GM in DEXTROSE 5% 100 ML IV SCH ×2 (01:03→09:01)
[2022-08-04] MEDS: HYDROcodone/ACETAMINOPHEN 10/325 TAB PO PRN ×2 (02:36→07:48)
[2022-08-04] MEDS: HYDROmorphone INJ 0.5 MG/0.5 ML SYR IV PRN (03:51)
--- NOTE | 2022-08-04 06:09 | Surgery Progress Note ---
Date of Service August 04, 2022 Assessment & Plan (1) Acute perforated appendicitis: Plan: Status post open appendectomy on 07/31/2022 (postop day #4) Continue analgesics Continue antiemetics Continue FORTUNATO drain to bulb suction (primary service would like patient to go home with this drain in place and will be assessed in the office at her outpatient follow-up) Continue antibiotics in the form of Zosyn while hospitalized Increase activity as able Encourage use of incentive spirometry Patient has had advancement to solid food but had noted some increased abdominal pain. Will reassess patient with attending physician this morning to determine if she is favorable for discharge later today. Continue SCDs for DVT prevention Admission and Anticipated Discharge Date Admission Date: July 30, 2022 Supervising Physician Co-Signing Physician Notes I personally saw and evaluated the patient with Tin Longoria PA-C and agree with the assessment and plan 37-year-old female status post laparoscopic converted to open appendectomy for severe acute perforated appendicitis Continue low fiber diet Pain control as needed Keep FORTUNATO in place, she will go home with this She does have some gas pain, but continues to tolerate a diet and passed some flatus I think she stable for discharge home today, she is okay with this plan Subjective Patient is resting comfortably bed at the present time. She notes over the past 24 hours she had her diet advanced to solid which she tolerated but she did note some worsening abdominal pain last evening. She is passing small amount of flatus but has not had a bowel movement. She denies any nausea or vomiting. She denies any fevers, shakes, chills. No shortness of breath noted. Physical Exam Gastrointestinal (Abdomen): Abdomen is soft and nonrigid. There is no distention noted. Bowel sounds are present. At the time of my exam the patient had minimal pain with palpation, although she had just received some intravenous analgesics. FORTUNATO drain is in place draining serous fluid. Is drained approximate 80 cc over the past 24 hours. Results & Data ([facility]) Vital Signs (Past 12 Hours) Vital Signs Temp Pulse Pulse Resp BP Pulse Ox O2 Del Method 08/04/22 02:34 37.1 C 103 H 17 121/83 92 Room Air 08/03/22 23:00 99 H 08/03/22 23:02 36.9 C 103 H 16 111/74 94 Room Air 08/03/22 19:45 36.7 C 98 H 18 129/79 99 Room Air PG Care Time/CCT Total # of Minutes Spent Total Time Spent with Patient: Total time spent is greater than 50% in coordination of care (as documented) at patient's floor/unit and/or counseling patient: Coding Level of Care Code None Diagnoses Acute perforated appendicitis K35.32
[2022-08-04] MEDS: INSULIN ASPART PER UNIT SC SCH (08:12)
[2022-08-04] MEDS: buPROPion XL 300 MG TABCR PO SCH (08:13)
--- NOTE | 2022-08-07 08:34 | Coding Query ---
CODING QUERY To promote full compliance with coding requirements relating to patient care, provider participation is requested in all cases of shaker repairer uncertainty. Please assist us with the question(s) below: Coding Question(s): There is conflicting documentation regarding the type of Diabetes in the record and your help is needed and appreciated in order to clarify the type of Diabetes. The history section of the patient record documents Diabetes type 1 and says is type 1 but currently on metformin only, however there is documentation, as on the Hospitalist Consultation on 07/31 of Type 2 Diabetes, on metformin and Victoza. Please clarify below, the type of Diabetes: ( x ) Type 2 Diabetes ( ) Type 1 Diabetes ( ) Other Diabetes: Please Specify Physician's Response(s): Thank you Felipa Rahman Principal Diagnosis: "that condition established after study, to be chiefly responsible for occasioning the admission of the patient to the hospital for care." Co-Existing Principal Diagnosis: "when two or more diagnoses equally meet the criteria for principal diagnosis as determined by the circumstances of admission, diagnostic work up, and/or therapy provided, and the Alphabetic Index, Tabular List, or another coding guideline does not provide sequencing direction, any one of the diagnoses may be sequenced first." "When the physician has documented what appears to be a current diagnosis in the body of the record, but has not included the diagnosis in the final diagnostic statement, the physician should be asked whether the diagnosis should be added." ([facility] 2 QTR90. p3-4) LEONID
--- NOTE | 2022-08-07 08:46 | Coding Query ---
CODING QUERY To promote full compliance with coding requirements relating to patient care, provider participation is requested in all cases of tank processor uncertainty. Please assist us with the question(s) below: Coding Question(s): Your help is needed and appreciated in order to determine the Sepsis diagnosis accurately. Sepsis is documented beginning on the 07/31 Surgery Progress Note, and then on the 08/01 and 08/02 Hospitalist Progress Note, "Perforated appendicitis with abdominal sepsis present on admission". Please clarify the Sepsis/abdominal Sepsis, in your clinical opinion: (x ) Abdominal Sepsis, meaning Sepsis from abdominal source ( ) Abdominal Sepsis, meaning intra-abdominal sepsis - Peritoneal abscess only, with no Sepsis ( ) Other: Please Specify Physician's Response(s): Thank you Felipa Rahman Principal Diagnosis: "that condition established after study, to be chiefly responsible for occasioning the admission of the patient to the hospital for care." Co-Existing Principal Diagnosis: "when two or more diagnoses equally meet the criteria for principal diagnosis as determined by the circumstances of admission, diagnostic work up, and/or therapy provided, and the Alphabetic Index, Tabular List, or another coding guideline does not provide sequencing direction, any one of the diagnoses may be sequenced first." "When the physician has documented what appears to be a current diagnosis in the body of the record, but has not included the diagnosis in the final diagnostic statement, the physician should be asked whether the diagnosis should be added." ([facility] 2 QTR90. p3-4) LEONID
--- NOTE | 2022-08-07 08:49 | Coding Query ---
To promote full compliance with coding requirements relating to patient care, provider participation is requested in all cases of electronic musical instrument repairer uncertainty. Please assist us with the question(s) below: Coding Question(s): The diagnosis below was documented in the 07/31 Surgery Progress Note, then subsequently fell off all further documentation. Please indicate if it is still a possible diagnosis or ruled out. Physician's Response(s): UTI ( X ) Diagnosed and POA ( ) Diagnosed and not POA ( ) Ruled out ( ) Other (please specify) MTDD
== END 2022-08-04 09:51 | disposition home or self-care (01) | DRG 853 ==
LOC: ED 13:00 → EDINP 16:51 → 2E 20:38

== ENCOUNTER 2024-01-09 05:23 | Observation (INO) ==
[2024-01-09] MEDS: SODIUM CHLORIDE 0.9% 1,000 ML IV SCH ×2 (05:42→08:31)
[2024-01-09] MEDS: HYDROmorphone INJ 0.5 MG/0.5 ML SYR IV STA ×2 (05:42→06:32)
[2024-01-09 05:57] LABS: Basophils # (auto) 0.05 K/uL (0.00-0.20); Basophils % (auto) 0.3 %; Eosinophils # (auto) 0.08 K/uL (0.00-0.50); Eosinophils % (auto) 0.4 %; Hematocrit (blood only) 38.4 % (37.0-47.0); Immature Granulocytes # (auto) 0.09 K/uL (0.01-0.20); Immature Granulocytes % (auto) 0.5 %; Lymphocytes # (auto) 0.85 K/uL (1.20-3.40); Lymphocytes % (auto) 4.7 %; Mean Corpuscular Hemoglobin 30.9 pg (25.0-34.0); Mean Corpuscular Hgb Conc 33.9 g/dL (32.0-36.0); Mean Corpuscular Volume 91.2 fL (80.0-100.0); Monocytes # (auto) 1.01 K/uL (0.11-0.59); Monocytes % (auto) 5.6 %; Neutrophils # (auto) 16.03 K/uL (1.40-6.50); Neutrophils % (auto) 88.5 %; Platelet Count 303 K/uL (130-400); RDW Coefficient of Variation 11.8 % (11.5-14.5); RDW Standard Deviation 39.2 fL (36.4-46.3); Red Blood Count 4.21 M/uL (4.20-5.40); White Blood Count 18.11 K/ul (4.8-10.8)
[2024-01-09 05:57] LABS: iSTAT Creatinine 0.7 mg/dl (0.6-1.3); iSTAT Hemoglobin 12.6 g/dl (12.0-16.0); iSTAT Ionized Calcium 1.08 mmol/l (1.12-1.32)
[2024-01-09] MEDS: OPTIRAY 320 125ml IV ONE (06:01)
[2024-01-09 06:05] LABS: Pregnancy Test, Serum Negative (Negative)
[2024-01-09 06:07] LABS: Alanine Aminotransferase 12 U/L (7-52); Albumin Globulin Ratio 1.5 (0.9-2); Albumin Level 4.6 gm/dl (3.4-5.0); Alkaline Phosphatase 81 U/L (34-104); Anion Gap 9 (3-11); Aspartate Aminotransferase 13 U/L (13-39); BUN Creatinine Ratio 23.4 (10-20); Bilirubin,Total 0.4 mg/dl (0.2-1.0); Blood Urea Nitrogen 18 mg/dl (6-23); Carbon Dioxide 28 mmol/L (21-32); Chloride 99 mmol/L (98-107); Creatinine Clr Calc Pharmacy 113.2 ml/min; Est GFR (African American) 115.1 ml/min; Est GFR (Non-African American) 99.3 ml/min; Globulin 3.1 gm/dl (2.5-4.0); Glucose 178 mg/dl (70-99(Fasting)); Lipase 16 U/L (11-82); Magnesium 1.5 mg/dl (1.7-2.4); Potassium 4.1 mmol/L (3.5-5.1); Sodium 136 mmol/L (136-145); Total Protein 7.7 gm/dl (6.0-8.3)
[2024-01-09 06:11] LABS: Troponin I High Sensitivity < 2.3 pg/ml (0-14)
[2024-01-09 06:16] LABS: INR 0.9 (0.9-1.1); Partial Thromboplastin Time 26 Seconds (21-31); Prothrombin Time 10.3 Seconds (9.0-12.0)
[2024-01-09 06:19] LABS: D Dimer 700 ug/L FEU (0-500)
[2024-01-09 06:21] LABS: Thyroid Stimulating Hormone 1.697 uIu/ml (0.300-4.500)
[2024-01-09 06:28] LABS: Appearance Urine Clear (Clear); Bacteria Urine Automated 1+ (None Seen); Bilirubin Urine Negative (Negative); Blood Urine 1+ (Negative); Cast Urine Automated 0-2 /lpf (0-2); Color Urine Yellow; Glucose Urine UA Trace (Negative); Ketones Urine Negative (Negative); Leukocyte Esterase Urine Negative (Negative); Nitrite Urine Negative (Negative); Protein Urine Trace (Negative); Urobilinogen Urine Negative (Negative); WBC Urine Automated 0-5 /hpf (0-5); pH Urine 5.5 (4.5-7.5)
--- NOTE | 2024-01-09 06:33 | CT Scan Report ---
Exam(s): CTA CHEST W/WO Contrast IV Amt: 119 ml opti 320 EXAM: CT Angiography Chest Without and With Intravenous Contrast CLINICAL HISTORY: Chest Pains. TECHNIQUE: Axial computed tomographic angiography images of the chest without and with intravenous contrast. MIPS images were created and reviewed. CTDI is 27.21 mGy and DLP is 1812.98 mGy-cm. Automated exposure control was utilized for the study. A dose lowering technique was utilized adhering to the principles of ALARA. MIP reconstructed images were created and reviewed. CONTRAST: Patient received 119 ml opti 320 of IV contrast COMPARISON: CTA chest 07/30/2022 FINDINGS: Pulmonary arteries: Unremarkable. No pulmonary embolus. Aorta: No acute findings. No thoracic aortic aneurysm. Lungs: There is a stable 2 mm right lower lobe pulmonary nodule. No consolidation. Pleural space: Unremarkable. No significant effusion. No pneumothorax. Heart: Unremarkable. No cardiomegaly. No significant pericardial effusion. No evidence of RV dysfunction. Bones/joints: There are degenerative changes of the spine. No acute fracture. No dislocation. Soft tissues: Unremarkable. Lymph nodes: Unremarkable. No enlarged lymph nodes. IMPRESSION: 1. No pulmonary embolus. 2. There is a stable 2 mm right lower lobe pulmonary nodule. Fleischner Society Guidelines suggest no follow-up is necessary for patients with a low or high risk of malignancy. Electronically signed by: Yadi Hill MD 01/09/24 06:32 AM
--- NOTE | 2024-01-09 06:50 | Emergency Department Note ---
History of Present Illness General Chief complaint: Chest Pain Stated complaint: CHEST PAIN, HIGH HEART RATE, HEADACHE Time Seen by Provider: 01/09/24 05:31 History of Present Illness Maximum Pain Intensity: 7 This is a 38-year-old female presenting to the emergency department for evaluation of epigastric pain radiating up into her chest, between her shoulder blades, and into her left side neck. 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 She states that her father had his first heart attack at the age of 40. Patient symptoms began around midnight, roughly 5 hours prior to arrival. The patient did not take anything [id number] for symptoms, but did take Zofran as she thought some of her epigastric symptoms may be related to eating food tonight. She does not have any recent travel history. She is diaphoretic and states that her watch said that her heart rate was over 150. Home Medications Medication Instructions Recorded Confirmed Type blood sugar diagnostic (OneTouch #10 ea 03/17/19 05/07/23 History Ultra Blue Test Strip) glucagon HCl 1 mg/mL solution for 1 mg IM UD PRN Hypoglycemia #2 ea 03/17/19 01/09/24 History injection lancets 33 gauge (OneTouch Delica #100 ea 03/17/19 05/07/23 History Lancets) levonorgestrel 21 mcg/24 hr (up to 20 mcg intrauterine CONT 03/17/19 01/09/24 History 8 years) 52 mg intrauterine device (Mirena) multivitamin (Daily Multi-Vitamin 1 tab PO QAM 03/17/19 01/09/24 History tablet) cholecalciferol (vitamin D3) 50 4,000 unit PO QAM #0 caps 06/01/20 01/09/24 History mcg (2,000 unit) capsule bupropion HCl 300 mg 24 hr tablet, 300 mg PO QAM 07/11/22 01/09/24 History extended release metformin 500 mg tablet 1,000 mg (2 x 500 mg) PO BID #360 07/12/22 01/09/24 Rx tabs blood-glucose meter (OneTouch #1 ea 08/07/22 05/07/23 Rx Ultra2 Meter kit) blood sugar diagnostic (OneTouch #100 ea 08/09/22 05/07/23 Rx Ultra Test strips) pen needle, diabetic 32 gauge x #400 ea 08/28/22 05/07/23 Rx 5/32" (BD Ida 2nd Gen Pen Needle) blood-glucose transmitter (Dexcom #1 ea 09/10/22 05/07/23 Rx G6 Transmitter device) blood-glucose sensor (Dexcom G6 #9 ea 01/14/23 05/07/23 Rx Sensor device) glucagon 3 mg/actuation nasal 3 mg intranasal ONCE PRN 04/17/23 01/09/24 History spray (Baqsimi) Hypoglycemia pantoprazole 40 mg tablet,delayed 40 mg PO QAM #90 tabs 08/25/23 01/09/24 Rx release atorvastatin 10 mg tablet 10 mg PO HS #90 tabs 12/25/23 01/09/24 Rx escitalopram oxalate 10 mg tablet 10 mg PO QAM 01/09/24 01/09/24 History insulin degludec 100 unit/mL (3 11 unit subcut QAM 01/09/24 01/09/24 History mL) subcutaneous pen (Tresiba FlexTouch U-100 insulin) Allergies Allergy/AdvReac Type Severity Reaction Status Date / Time chlorhexidine Allergy Intermediate Hives Verified 01/09/24 09:07 latex Allergy Intermediate Hives Verified 01/09/24 09:07 nickel Allergy Intermediate redness, Verified 01/09/24 09:07 irritation, rash oxycodone [From Percocet] Allergy Intermediate itching Verified 01/09/24 09:07 doxycycline AdvReac Intermediate GI UPSET Verified 01/09/24 09:07 Past Med/Surg History Problem List (Updated 01/10/24 @ 00:15 by Pedro Rai PA-C) Headache (Acute) Atypical chest pain (Acute) Headache Neck pain Abdominal pain, epigastric Vitamin D deficiency (Chronic) Simple goiter (Chronic) PCOS (polycystic ovarian syndrome) (Chronic) Obsessive compulsive disorder (Chronic) Chronic gastroesophageal reflux disease (Chronic) Dyslipidemia (Chronic) Depression (Chronic) Anxiety (Chronic) IUD contraception (Chronic) Type 2 diabetes mellitus (Chronic) Mild obstructive sleep apnea (Chronic) GERD (gastroesophageal reflux disease) Change in bowel habits History of ITP Overweight Elevated blood pressure reading Acute perforated appendicitis (Acute) Tachycardia (Acute) Abdominal pain Medical History GERD (gastroesophageal reflux disease) Epigastric pain Change in bowel movement Diabetes mellitus type 1 is type 1 but currently on metformin and insulin OCD (obsessive compulsive disorder) Depression Anxiety Hyperlipidemia Sleep apnea no device 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--platelets are WNL Surgical History Hx of appendectomy Hx of colonoscopy 2019 History of wisdom tooth extraction History of removal of cyst temporal cyst as a child History of History of esophagogastroduodenoscopy (EGD) Family History Grandmother (Maternal) Colorectal cancer Father Heart disease Diabetes Hypertension Myocardial infarction Sister Diabetes Brother Diabetes Mother Diabetes Anxiety Myocardial infarction Hypertension Grandmother (Paternal) Breast cancer Other No family history of adverse response to anesthesia Denies family history of Ovarian cancer Social History Smoking Status: Never smoker Second Hand Exposure: No; Do You Dip or Chew Tobacco: No; Tobacco Cessation Education Requested by Patient: No Hx Alcohol Use: Yes Alcohol type: beer Hx Substance Use: No Preferred Language: Luxembourger Communication Ability: Effective Mixing Roll Operator Required: No Beliefs That Will Affect Care: None Current Living Situation: Family Current Living Situation Comment: , daughter current occupational status: employed Other Information That Helps Us Care for You: No Feels Safe at Home: Yes Safety Concerns: Feels Safe At This Time Assistive Devices: None and Glasses Assistive Devices Comment: to wear CPAP but does not Review of Systems A total of 10 systems reviewed and were otherwise negative Physical Exam Vital Signs Vital Signs - 24 hr 01/09/24 05:26 01/09/24 05:31 01/09/24 05:31 Temperature 36.8 C Temperature Source Temporal Artery Scan Pulse Rate 154 H Pulse Rate [Apical] Pulse Rate from SpO2 Sensor Respiratory Rate 20 Respiratory Effort / Characteristics Non-Labored Spontaneous Respiratory Depth Normal Respiratory Pattern Regular Blood Pressure 136/79 Blood Pressure [Right Arm] Blood Pressure Mean 98 Blood Pressure Mean [Right Arm] Pulse Oximetry 95 98 98 Oxygen Delivery Method Room Air Room Air Room Air Sepsis Recent Fever Within 48 Hours No Sepsis New/Unexplained Change in Mental Status N/A Sepsis Action Taken by Nursing No Action Required 01/09/24 05:32 01/09/24 06:21 01/09/24 07:09 Temperature Temperature Source Pulse Rate 145 H 123 H Pulse Rate [Apical] Pulse Rate from SpO2 Sensor Respiratory Rate 14 Respiratory Effort / Characteristics Respiratory Depth Respiratory Pattern Blood Pressure 107/65 111/88 Blood Pressure [Right Arm] Blood Pressure Mean 79 96 Blood Pressure Mean [Right Arm] Pulse Oximetry 90 Oxygen Delivery Method Room Air Sepsis Recent Fever Within 48 Hours Sepsis New/Unexplained Change in Mental Status Sepsis Action Taken by Nursing 01/09/24 07:30 01/09/24 07:30 01/09/24 08:42 Temperature Temperature Source Pulse Rate 118 H 114 H Pulse Rate [Apical] 125 H Pulse Rate from SpO2 Sensor 115 H Respiratory Rate 16 14 19 Respiratory Effort / Characteristics Non-Labored Spontaneous Respiratory Depth Normal Respiratory Pattern Blood Pressure 121/91 116/74 Blood Pressure [Right Arm] 121/91 Blood Pressure Mean 99 88 Blood Pressure Mean [Right Arm] 101 Pulse Oximetry 95 93 96 Oxygen Delivery Method Room Air Room Air Room Air Sepsis Recent Fever Within 48 Hours Sepsis New/Unexplained Change in Mental Status Sepsis Action Taken by Nursing 01/09/24 09:33 01/09/24 09:52 01/09/24 10:03 Temperature Temperature Source Pulse Rate 122 H 120 H 113 H Pulse Rate [Apical] Pulse Rate from SpO2 Sensor 122 H Respiratory Rate 16 12 Respiratory Effort / Characteristics Respiratory Depth Respiratory Pattern Blood Pressure 114/78 Blood Pressure [Right Arm] Blood Pressure Mean 90 Blood Pressure Mean [Right Arm] Pulse Oximetry 99 Oxygen Delivery Method Room Air Sepsis Recent Fever Within 48 Hours Sepsis New/Unexplained Change in Mental Status Sepsis Action Taken by Nursing VITALS: Vitals are noted on the nurse's note and reviewed by myself. Vital signs with notable tachycardia GENERAL: Well-developed, well-nourished, white female, who very uncomfortable appearing. She is diaphoretic. HEAD: Normocephalic atraumatic. NECK: Supple without nuchal rigidity. No lymphadenopathy. No thyromegaly. Cervical spine is nontender. HEART: Tachycardic rate LUNGS: Clear to auscultation bilaterally without wheezes, rales or rhonchi. No retractions or accessory muscle use. ABDOMEN: Positive normal bowel sounds x 4. Soft, nontender, without masses or organomegaly. No guarding or rebound tenderness. MUSCULOSKELETAL: No muscle atrophy, erythema, or edema noted. Full range of motion in all extremities. NEURO: Patient was alert and oriented to person place and time. CN II through XII grossly intact. No focal neurological deficits. Course Administered Medications Acetaminophen (Acetaminophen 325 Mg Tab) 650 mg PO Q6H PRN PRN Reason: pain(1-4),headache,fever Stop: 02/08/24 10:47 Last Admin: 01/09/24 18:07 Dose: 650 mg Documented By: Admin: 01/09/24 12:36 Dose: 650 mg Documented By: AKILAH Atorvastatin Calcium (Atorvastatin 10 Mg Tab) 10 mg PO HS CAROLE Stop: 02/08/24 20:59 Last Admin: 01/09/24 22:12 Dose: 10 mg Documented By: POOL Famotidine (Famotidine 20 Mg Tab) 20 mg PO BID CAROLE Stop: 02/08/24 20:59 Last Admin: 01/09/24 22:12 Dose: 20 mg Documented By: POOL Insulin Aspart (Insulin Aspart Per Unit Charge) 0 units SC ACHS CAROLE Stop: 02/08/24 11:29 Last Admin: 01/09/24 22:25 Dose: 2 units Documented By: POOL Co-signed By: NICOLAS Admin: 01/09/24 22:25 Dose: Not Given Documented By: POOL Co-signed By: NICOLAS Admin: 01/09/24 14:23 Dose: Not Given Documented By: AKILAH Sucralfate (Sucralfate 1 Gm/10 Ml Udc) 1 gm PO QID CAROLE Stop: 02/08/24 11:14 Last Admin: 01/09/24 22:14 Dose: 1 gm Documented By: Admin: 01/09/24 22:13 Dose: Not Given Documented By: Admin: 01/09/24 11:36 Dose: 1 gm Documented By: YOSELIN Zolpidem Tartrate (Zolpidem Tartrate 5 Mg Tab) 5 mg PO HS PRN PRN Reason: Sleep Stop: 02/08/24 21:18 Last Admin: 01/09/24 22:12 Dose: 5 mg Documented By: POOL Discontinued Medications Diazepam (Diazepam 5 Mg/Ml 10ml Vial) 10 mg IV NOW STA Stop: 01/09/24 15:36 Last Admin: 01/09/24 16:30 Dose: Not Given Documented By: AKILAH Diazepam (Diazepam 5 Mg/Ml 10ml Vial) 5 mg IV NOW STA Stop: 01/09/24 15:36 Last Admin: 01/09/24 15:56 Dose: 5 mg Documented By: YOSELIN Famotidine (Famotidine 20 Mg Tab) 20 mg PO NOW ONE Stop: 01/09/24 11:01 Last Admin: 01/09/24 11:37 Dose: 20 mg Documented By: YOSELIN Hydromorphone HCl (Hydromorphone Inj 0.5 Mg/0.5 Ml Syr) 0.5 mg IV NOW STA Stop: 01/09/24 05:39 Last Admin: 01/09/24 05:42 Dose: 0.5 mg Documented By: ALIA Hydromorphone HCl (Hydromorphone Inj 0.5 Mg/0.5 Ml Syr) 0.5 mg IV NOW STA Stop: 01/09/24 06:26 Last Admin: 01/09/24 06:32 Dose: 0.5 mg Documented By: ALIA Sodium Chloride (Nss) 1,000 mls @ 999 mls/hr IV .Q1H1M CAROLE Stop: 01/09/24 06:45 Last Infusion: 01/09/24 06:37 Dose: Infused Documented By: Admin: 01/09/24 05:42 Dose: 999 mls/hr Documented By: ALIA Sodium Chloride (Nss) 1,000 mls @ 999 mls/hr IV .Q1H1M CAROLE Stop: 01/09/24 09:00 Last Infusion: 01/09/24 10:21 Dose: Infused Documented By: Admin: 01/09/24 08:31 Dose: 999 mls/hr Documented By: ABBE Acetaminophen (Ofirmev) 1,000 mg in 100 mls @ 400 mls/hr IV NOW STA Stop: 01/09/24 10:01 Last Infusion: 01/09/24 10:21 Dose: Infused Documented By: Admin: 01/09/24 09:50 Dose: 400 mls/hr Documented By: ABBE Magnesium Sulfate/Dextrose (Magnesium Sulfate / D5w) 1 gm in 100 mls @ 50 mls/hr IV Q2H CAROLE Stop: 01/09/24 13:59 Last Infusion: 01/09/24 14:46 Dose: Infused Documented By: Admin: 01/09/24 12:34 Dose: 50 mls/hr Documented By: Infusion: 01/09/24 12:21 Dose: Infused Documented By: Admin: 01/09/24 10:21 Dose: 50 mls/hr Documented By: ABBE Pantoprazole Sodium 40 mg/ (Syringe) 10 mls @ 5 mls/min IV NOW ONE Stop: 01/09/24 10:16 Last Admin: 01/09/24 11:37 Dose: 5 mls/min Documented By: YOSELIN Lactated Ringer's (Lr) 1,000 mls @ 100 mls/hr IV .Q10H CAROLE Stop: 01/09/24 20:44 Last Infusion: 01/09/24 22:42 Dose: Infused Documented By: Admin: 01/09/24 11:36 Dose: 100 mls/hr Documented By: YOSELIN Ioversol (Optiray 320 125ml) 119 ml IV ONCE ONE Stop: 01/09/24 06:02 Last Admin: 01/09/24 06:01 Dose: 119 ml Documented By: SAMUEL Lidocaine (Lidocaine 5% 1 Patch) 1 patch TD NOW STA Stop: 01/09/24 10:59 Last Admin: 01/09/24 15:19 Dose: 1 patch Documented By: AKILAH Lorazepam (Lorazepam 1 Mg/1 Ml Syr Ed Inj Use) 1 mg IV ONE STA Stop: 01/09/24 07:27 Last Admin: 01/09/24 07:29 Dose: 1 mg Documented By: ABBE Miscellaneous (Remove Lidoderm Patch) 1 each N/A DAILY@2100 [facility] Stop: 01/09/24 21:01 Last Admin: 01/09/24 22:14 Dose: 1 each Documented By: POOL Medical Decision Making Differential Diagnosis Differential diagnosis includes, but is not limited to: Myocardial infarction, dysrhythmia, pericarditis, pneumothorax, aortic aneurysm/dissection, DVT/PE, anxiety, GERD, PUD, electrolyte imbalance, thyroid disorder, pneumonia, bronchitis, pancreatitis, and others Laboratory Data 01/09/24 05:35 01/09/24 05:35 Lab Results 01/09/24 01/09/24 01/09/24 Range/Units 05:35 05:42 06:12 WBC 18.11 H (4.8-10.8) K/ul RBC 4.21 (4.20-5.40) M/uL Hgb 13.0 (12.0-16.0) g/dl POC Hgb 12.6 (12.0-16.0) g/dl Hct 38.4 (37.0-47.0) % POC Hct 37 (37-47) % MCV 91.2 (80.0-100.0) fL MCH 30.9 (25.0-34.0) pg MCHC 33.9 (32.0-36.0) g/dL RDW Std Deviation 39.2 (36.4-46.3) fL RDW Coeff of Claudio 11.8 (11.5-14.5) % Plt Count 303 (130-400) K/uL MPV 10.0 (9.4-12.4) fL Immature Gran % (Auto) 0.5 % Neut % (Auto) 88.5 % Lymph % (Auto) 4.7 % [place] % (Auto) 5.6 % Eos % (Auto) 0.4 % Baso % (Auto) 0.3 % Neut # (Auto) 16.03 H (1.40-6.50) K/uL Lymph # (Auto) 0.85 L (1.20-3.40) K/uL [place] # (Auto) 1.01 H (0.11-0.59) K/uL Eos # (Auto) 0.08 (0.00-0.50) K/uL Baso # (Auto) 0.05 (0.00-0.20) K/uL Immature Gran # (Auto) 0.09 (0.01-0.20) K/uL PT 10.3 (9.0-12.0) Seconds INR 0.9 (0.9-1.1) APTT 26 (21-31) Seconds PTT Ratio 1.0 D-Dimer 700 H* (0-500) ug/L FEU POC Sodium 137 (135-144) mmol/L Sodium 136 (136-145) mmol/L POC Potassium 4.0 (3.3-5.0) mmol/L Potassium 4.1 (3.5-5.1) mmol/L POC Chloride 98 L (101-112) mmol/L Chloride 99 (98-107) mmol/L Carbon Dioxide 28 (21-32) mmol/L POC Total CO2 26 (24-31) mmol/L Anion Gap 9 (3-11) POC Anion Gap 18.0 (16-25) mmol/L POC BUN 16 (7-18) mg/dl BUN 18 (6-23) mg/dl Creatinine 0.77 (0.6-1.2) mg/dl POC Creatinine 0.7 (0.6-1.3) mg/dl Est Cr Clr Drug Dosing 113.2 ml/min Est GFR ( Amer) 115.1 ml/min Est GFR (Non-Af Amer) 99.3 ml/min BUN/Creatinine Ratio 23.4 H (10-20) Glucose 178 H (70-99(Fasting)) mg/dl POC Glucose (other) 187 H (70-99) mg/dl Lactate (0.4-2.0) mmol/L Calcium 9.0 (8.6-10.3) mg/dl POC Ioniz Calcium An[place] 1.08 L (1.12-1.32) mmol/l Magnesium 1.5 L (1.7-2.4) mg/dl Total Bilirubin 0.4 (0.2-1.0) mg/dl AST 13 (13-39) U/L ALT 12 (7-52) U/L Alkaline Phosphatase 81 (34-104) U/L Troponin I High Sens < 2.3 (0-14) pg/ml Total Protein 7.7 (6.0-8.3) gm/dl Albumin 4.6 (3.4-5.0) gm/dl Globulin 3.1 (2.5-4.0) gm/dl Albumin/Globulin Ratio 1.5 (0.9-2) Lipase 16 (11-82) U/L Procalcitonin (0-0.5) ng/ml TSH 1.697 (0.300-4.500) uIu/ml HCG, Qual Negative (Negative) Urine Color Yellow Urine Appearance Clear (Clear) Urine pH 5.5 (4.5-7.5) Ur Specific [place] 1.030 (1.000-1.030) Urine Protein Trace H (Negative) Urine Glucose (UA) Trace H (Negative) Urine Ketones Negative (Negative) Urine Blood 1+ H (Negative) Urine Nitrite Negative (Negative) Urine Bilirubin Negative (Negative) Urine Urobilinogen Negative (Negative) Ur Leukocyte Esterase Negative (Negative) Urine WBC (Auto) 0-5 (0-5) /hpf Urine RBC (Auto) 3-5 H (0-2) /hpf U Hyaline Cast (Auto) 0-2 (0-2) /lpf U Epithel Cells (Auto) 3-5 H (0-2) /hpf Urine Bacteria (Auto) 1+ H (None Seen) Urine Opiates Screen Neg (Neg) Ur Methadone, Qual Neg (Neg) Urine Fentanyl Screen Neg (Neg) Urine Barbiturates Neg (Neg) Ur Phencyclidine (PCP) Neg (Neg) U Amphetamin/Meth Scrn Neg (Neg) MDMA (Ecstasy) Screen Pos H (Neg) U Benzodiazepines Scrn Neg (Neg) Ur Cocaine Metabolite Neg (Neg) U Marijuana (THC) Screen Neg (Neg) Adenovirus (PCR) Not Detected (NotDetected) B. pertussis DNA (PCR) Not Detected (NotDetected) B.parapertussis DNA PCR Not Detected (NotDetected) C. pneumoniae DNA (PCR) Not Detected (NotDetected) Coronavirus OC43 (PCR) Not Detected (NotDetected) Coronavirus HKU1 (PCR) Not Detected (NotDetected) Coronavirus 229E (PCR) Not Detected (NotDetected) SARS-CoV-2 (PCR) Not Detected (NotDetected) Coronavirus NL63 (PCR) Not Detected (NotDetected) Human Metapneumovir PCR Not Detected (NotDetected) Influenza Type A (PCR) Not Detected (NotDetected) Influenza Type B (PCR) Not Detected (NotDetected) M. pneumoniae (PCR) Not Detected (NotDetected) Parainfluenza 1 (PCR) Not Detected (NotDetected) Parainfluenza 2 (PCR) Not Detected (NotDetected) Parainfluenza 3 (PCR) Not Detected (NotDetected) Parainfluenza 4 (PCR) Not Detected (NotDetected) RSV (PCR) Not Detected (NotDetected) Entero/Rhino (PCR) Not Detected (NotDetected) 01/09/24 01/09/24 Range/Units 09:32 10:18 WBC (4.8-10.8) K/ul RBC (4.20-5.40) M/uL Hgb (12.0-16.0) g/dl POC Hgb (12.0-16.0) g/dl Hct (37.0-47.0) % POC Hct (37-47) % MCV (80.0-100.0) fL MCH (25.0-34.0) pg MCHC (32.0-36.0) g/dL RDW Std Deviation (36.4-46.3) fL RDW Coeff of Claudio (11.5-14.5) % Plt Count (130-400) K/uL MPV (9.4-12.4) fL Immature Gran % (Auto) % Neut % (Auto) % Lymph % (Auto) % [place] % (Auto) % Eos % (Auto) % Baso % (Auto) % Neut # (Auto) (1.40-6.50) K/uL Lymph # (Auto) (1.20-3.40) K/uL [place] # (Auto) (0.11-0.59) K/uL Eos # (Auto) (0.00-0.50) K/uL Baso # (Auto) (0.00-0.20) K/uL Immature Gran # (Auto) (0.01-0.20) K/uL PT (9.0-12.0) Seconds INR (0.9-1.1) APTT (21-31) Seconds PTT Ratio D-Dimer (0-500) ug/L FEU POC Sodium (135-144) mmol/L Sodium (136-145) mmol/L POC Potassium (3.3-5.0) mmol/L Potassium (3.5-5.1) mmol/L POC Chloride (101-112) mmol/L Chloride (98-107) mmol/L Carbon Dioxide (21-32) mmol/L POC Total CO2 (24-31) mmol/L Anion Gap (3-11) POC Anion Gap (16-25) mmol/L POC BUN (7-18) mg/dl BUN (6-23) mg/dl Creatinine (0.6-1.2) mg/dl POC Creatinine (0.6-1.3) mg/dl Est Cr Clr Drug Dosing ml/min Est GFR ( Amer) ml/min Est GFR (Non-Af Amer) ml/min BUN/Creatinine Ratio (10-20) Glucose (70-99(Fasting)) mg/dl POC Glucose (other) (70-99) mg/dl Lactate 0.8 (0.4-2.0) mmol/L Calcium (8.6-10.3) mg/dl POC Ioniz Calcium Annamaria (1.12-1.32) mmol/l Magnesium (1.7-2.4) mg/dl Total Bilirubin (0.2-1.0) mg/dl AST (13-39) U/L ALT (7-52) U/L Alkaline Phosphatase (34-104) U/L Troponin I High Sens < 2.3 (0-14) pg/ml Total Protein (6.0-8.3) gm/dl Albumin (3.4-5.0) gm/dl Globulin (2.5-4.0) gm/dl Albumin/Globulin Ratio (0.9-2) Lipase (11-82) U/L Procalcitonin 0.07 (0-0.5) ng/ml TSH (0.300-4.500) uIu/ml HCG, Qual (Negative) Urine Color Urine Appearance (Clear) Urine pH (4.5-7.5) Ur Specific [place] (1.000-1.030) Urine Protein (Negative) Urine Glucose (UA) (Negative) Urine Ketones (Negative) Urine Blood (Negative) Urine Nitrite (Negative) Urine Bilirubin (Negative) Urine Urobilinogen (Negative) Ur Leukocyte Esterase (Negative) Urine WBC (Auto) (0-5) /hpf Urine RBC (Auto) (0-2) /hpf U Hyaline Cast (Auto) (0-2) /lpf U Epithel Cells (Auto) (0-2) /hpf Urine Bacteria (Auto) (None Seen) Urine Opiates Screen (Neg) Ur Methadone, Qual (Neg) Urine Fentanyl Screen (Neg) Urine Barbiturates (Neg) Ur Phencyclidine (PCP) (Neg) U Amphetamin/Meth Scrn (Neg) MDMA (Ecstasy) Screen (Neg) U Benzodiazepines Scrn (Neg) Ur Cocaine Metabolite (Neg) U Marijuana (THC) Screen (Neg) Adenovirus (PCR) (NotDetected) B. pertussis DNA (PCR) (NotDetected) B.parapertussis DNA PCR (NotDetected) C. pneumoniae DNA (PCR) (NotDetected) Coronavirus OC43 (PCR) (NotDetected) Coronavirus HKU1 (PCR) (NotDetected) Coronavirus 229E (PCR) (NotDetected) SARS-CoV-2 (PCR) (NotDetected) Coronavirus NL63 (PCR) (NotDetected) Human Metapneumovir PCR (NotDetected) Influenza Type A (PCR) (NotDetected) Influenza Type B (PCR) (NotDetected) M. pneumoniae (PCR) (NotDetected) Parainfluenza 1 (PCR) (NotDetected) Parainfluenza 2 (PCR) (NotDetected) Parainfluenza 3 (PCR) (NotDetected) Parainfluenza 4 (PCR) (NotDetected) RSV (PCR) (NotDetected) Entero/Rhino (PCR) (NotDetected) Imaging Data Radiologist's Impression: Chest CTA 01/09/24 05:38 Exam(s): CTA CHEST W/WO Contrast IV Amt: 119 ml opti 320 EXAM: CT Angiography Chest Without and With Intravenous Contrast CLINICAL HISTORY: Chest Pains. TECHNIQUE: Axial computed tomographic angiography images of the chest without and with intravenous contrast. MIPS images were created and reviewed. CTDI is 27.21 mGy and DLP is 1812.98 mGy-cm. Automated exposure control was utilized for the study. A dose lowering technique was utilized adhering to the principles of ALARA. MIP reconstructed images were created and reviewed. CONTRAST: Patient received 119 ml opti 320 of IV contrast COMPARISON: CTA chest 07/30/2022 FINDINGS: Pulmonary arteries: Unremarkable. No pulmonary embolus. Aorta: No acute findings. No thoracic aortic aneurysm. Lungs: There is a stable 2 mm right lower lobe pulmonary nodule. No consolidation. Pleural space: Unremarkable. No significant effusion. No pneumothorax. Heart: Unremarkable. No cardiomegaly. No significant pericardial effusion. No evidence of RV dysfunction. Bones/joints: There are degenerative changes of the spine. No acute fracture. No dislocation. Soft tissues: Unremarkable. Lymph nodes: Unremarkable. No enlarged lymph nodes. IMPRESSION: 1. No pulmonary embolus. 2. There is a stable 2 mm right lower lobe pulmonary nodule. Fleischner Society Guidelines suggest no follow-up is necessary for patients with a low or high risk of malignancy. Electronically signed by: Yadi Lorents, MD 01/09/24 06:32 AM MDM Narrative Physical exam and history were performed. Nursing notes, EMR, and Medication List were personally reviewed. No social concerns were identified as barriers to patients care. Patient appears to have epigastric pain and radiating into her chest behind her shoulders. On presentation the patient is diaphoretic, tachycardic, and quite uncomfortable appearing. She is diabetic. Her father's first heart attack was when he was 40 years old. Patient was seen immediately upon arrival to the ER and promptly sent to CT scan for dissection study. She was hydrated with normal saline and given IV Dilaudid and IV Zofran. An order was placed for continuous cardiac monitoring. The monitor shows a rate of sinus tachycardia with 131 rhythm. Patient's blood work is as above and was reviewed. She has an elevated white count of 18,000. She does not have significant anemia or gross electrolyte imbalance. INR was 0.9. Lipase and transaminases are not diagnostic. Glucose 178. Troponin x [address] scan was performed and independently reviewed by myself and radiology showing no acute pulmonary embolism or vascular catastrophe. Upon returning from CT scan of her chest and receiving pain medication, she is now complaining of 10/10 headache. Patient returned to CT scan where CT of her head was also reviewed and negative. Patient was given additional analgesia in the form of more Dilaudid. She continues to be tachycardic and was given a second liter of IV fluids. I did provide a small amount of Ativan. Despite all this the patient is persistently tachycardic in the 110s to 120s. Her discomfort is slightly better, however the cause of her symptoms is not definitive at this time. Overall escalation of care is felt to be necessary for the patient. The case was discussed with the on-call hospitalist team who agreed to evaluate her here in the ER. Please see their dictation for further patient course, plan, disposition. The chart was completed utilizing [employer] Voice Recognition Software. Grammatical errors, random word insertions, pronoun errors, and incomplete sentences are an occasional consequence of this system due to software limitations, ambient noise, and hardware issues. Any formal questions or concerns about the content, text, or information contained within the body of this dictation should be directly addressed to the provider for clarification. . Impression & Plan Atypical chest pain, Headache Discharge Plan Visit Data Chief Complaint: Chest Pain Stated Complaint: CHEST PAIN, HIGH HEART RATE, HEADACHE ED Provider: Jinny Galvez ED Midlevel Provider: Pedro Rai Discharge Problem: Atypical chest pain, Headache Patient Disposition: Admitted As Inpatient Discharge Instructions Interventions: ED Discharge Assessment Last Done: 01/09/24 10:54
[2024-01-09 06:52] LABS: Adenovirus PCR Not Detected (NotDetected); Bordetella parapertussis PCR Not Detected (NotDetected); Bordetella pertussis PCR Not Detected (NotDetected); Chlamydia pneumoniae PCR Not Detected (NotDetected); Coronavirus 229E PCR Not Detected (NotDetected); Coronavirus CoV-2 (COVID19)PCR Not Detected (NotDetected); Coronavirus HKU1 PCR Not Detected (NotDetected); Coronavirus NL63 PCR Not Detected (NotDetected); Coronavirus OC43PCR Not Detected (NotDetected); Human Metapneumovirus PCR Not Detected (NotDetected); Influenza A PCR Not Detected (NotDetected); Influenza B PCR Not Detected (NotDetected); Mycoplasma pneumoniae PCR Not Detected (NotDetected); Parainfluenza Virus 1 PCR Not Detected (NotDetected); Parainfluenza Virus 2 PCR Not Detected (NotDetected); Parainfluenza Virus 3 PCR Not Detected (NotDetected); Parainfluenza Virus 4 PCR Not Detected (NotDetected); Respiratory Syncytial VirusPCR Not Detected (NotDetected); Rhinovirus/Enterovirus PCR Not Detected (NotDetected)
[2024-01-09 06:53] LABS: Amphetamines+Metham, Urine Neg (Neg); Barbiturates, Urine Neg (Neg); Benzodiazepine, Urine Neg (Neg); Cocaine, Urine Neg (Neg); Fentanyl, Urine Neg (Neg); MDMA (Ecstacy), Urine Pos (Neg); Marijuana, Urine Neg (Neg); Methadone, Urine Neg (Neg); Opiate, Urine Neg (Neg); Phencyclidine, Urine Neg (Neg)
[2024-01-09] MEDS: LORazepam 1 MG/1 ML SYR ED Inj Use IV STA (07:29)
--- NOTE | 2024-01-09 08:58 | CT Scan Report ---
HEAD CT NONCONTRAST CT DOSE: 625.8 mGy.cm HISTORY: severe head pain TECHNIQUE: Multiaxial CT images of the head were performed without the use of intravenous contrast. A utomated exposure control was utilized for this study. A dose lowering technique was utilized adheri ng to the principles of ALARA. Comparison: None. Findings: Suboptimal evaluation of the brain due to the residual contrast from the same day chest CTA . However, no definite intracranial hemorrhage. The paranasal sinuses and mastoid air cells are clear . The calvarium and skull base are intact. The ventricles and sulci are within normal limits. There i s no mass, midline shift, or acute infarct. Impression: Suboptimal evaluation the brain due to the residual contrast from the same day chest CTA. However, no definite acute intracranial abnormality. ACT 112: Negative or not required by law. Electronically signed by: Misbah Mello M.D. 01/09/2024 8:56 AM
[2024-01-09] MEDS: ACETAMINOPHEN 1,000 MG/100 ML VIAL IV STA (09:50)
--- NOTE | 2024-01-09 10:11 | History & Physical Report ---
Date of Service January 09, 2024 Assessment & Plan (1) Abdominal pain, epigastric: Plan: Admit to med/tele Currently stable nontoxic-appearing Patient presented to the [facility] ED early this a.m. with multiple complaints including severe epigastric pain with nausea, radiation of the pain to the substernal area and possible left-sided chest pain, cervical neck pain with bilateral shoulder pain Patient was noted to be tachycardic with heart rate in the 150s but has otherwise been stable CTA of the chest with and without contrast and CT of the head and brain without contrast were read as negative for acute findings. History and physical exam appear consistent with exacerbation of the patient's known gastritis as the patient had general sells chicken and pizza yesterday, has been taking 800 mg of ibuprofen daily for the past 2 weeks for musculoskeletal neck/shoulder pain We will start 4 times daily Carafate, 40 mg IV pantoprazole daily, 20 mg p.o. famotidine twice daily, as needed Tylenol Patient was educated to avoid NSAIDs moving forward to prevent further exacerbations of her known gastritis Her cardiac workup has been unremarkable thus far with initial high- sensitivity troponin within normal limits and EKG without acute ST segment or T wave changes Will repeat another high-sensitivity troponin at time of admission to monitor for elevation Patient has been stable on room air, hemodynamically stable, and without pleuritic chest pain, low suspicion for PE at this time with negative CT of the chest today as well Can start full liquid diet for now with communication place for patient to not have carbonated beverages to prevent further exacerbation Bilateral SCDs for DVT prophylaxis AM CBC, CMP, mag (2) Neck pain: Plan: Patient has been experiencing bilateral cervical neck pain with radiation into the bilateral trapezoid muscles for 2+ weeks Was recently seen by her chiropractor yesterday and had adjustment, this did not significantly change her pain, and she did not have neurologic symptoms after the adjustment Symptoms are stable at rest but exacerbated with flexion of the cervical spine, no acute exam findings on palpation of the cervical spine and bilateral shoulders Neurologic exam is nonfocal Suspect this is musculoskeletal pain Continue ice, lidocaine patch, and as needed Tylenol (3) Tachycardia: Plan: Patient presented with sinus tachycardia with heart rate in the 150s Has improved to the 110s at the time of admission Review of the patient's vital signs and past medical history does show history of sinus tachycardia Likely exacerbated due to pain, magnesium level of 1.5, and dehydration Will give 2 g IV mag sulfate on admission to assist with tachycardia and her headache Cardiac workup thus far has been unremarkable, will follow repeat 2-hour high- sensitivity troponin continue to monitor telemetry for now Continue to monitor for improvement with ongoing hydration and treatment of acute pain (4) Headache: Plan: Patient started to develop a headache after going to bed last night Headache was significantly improved after 1 g IV Tylenol in the ED CT of the head and brain without contrast was negative for acute findings, no acute focal neurologic exam findings Suspect her headache is due to a combination of known cervical musculoskeletal pain and severe gastritis Continue as needed lidocaine patch, ice, Tylenol (5) Leukocytosis: Plan: Patient noted to have a leukocytosis of 18 with neutrophil predominance of 16 on arrival CTA of the chest and UA have been negative for infectious findings No recent respiratory, GI, or urinary infectious symptoms No signs of infection on exam Suspect her leukocytosis is due to dehydration and chronic gastritis Lactate was within normal limits, will add Pro-Nico on admission - Follow daily CBC (6) Obsessive compulsive disorder: Plan: Continue bupropion (7) Type 2 diabetes mellitus: Plan: Hold metformin for now Monitor BSG ACHS, goal is [id number] Normally takes 11 units of Tresiba in the a.m., will convert to 11 units Lantus daily Start CF of 50 and CR of 15 ACHS for now History of Present Illness Chief Complaint: Epigastric, left chest, left back pain Primary Care Provider: Jesse Clemons Patti Sellers is a 38-year-old female with a past medical history significant for DM type II, hyperlipidemia, GERD, obsessive-compulsive disorder who presented to the [facility] ED on 01/09/2024 with complaints of severe epigastric pain with radiation to the left chest/back, nausea, and neck pain. She also reported that she has been tachycardic with heart rate in the 150s per her smart watch. On arrival to the ED she was noted to be tachycardic with heart rate in the 150s, but otherwise stable. Labs were significant for a leukocytosis of 18 with neutrophil predominance of 16, D-dimer of 700, ionized calcium of 1.08, magnesium 1.5, initial high-sensitivity troponin within normal limits, lipase within normal limits, UA with trace protein/glucose, 1+ blood, 3- 5 RBCs, 3-5 epithelial cells, and 1+ bacteria, full respiratory BioFire negative, and urine toxicology screen positive for DNA. EKG on arrival shows sinus tachycardia with heart rate in the 140s, incomplete right bundle branch bl ock and improved T wave abnormality improved in the anteriorlateral leads compared to previous. CT of the head and brain without contrast was read as suboptimal evaluation of the brain due to the residual contrast from the same day chest CTA. However, no definite acute intracranial abnormality. CTA of the chest with without contrast was read as negative for pulmonary embolus. It did note a stable 2 mm right lower lobe pulmonary nodule. Fleischner Society guidelines suggest no follow-up is necessary for patients with a low or high risk of malignancy.Prior to admission the patient was given 2 L NSS, 2 doses of 0.5 mg IV Dilaudid, 1 mg IV Ativan, and 1 g IV Tylenol. Patient was lying in bed in no acute distress at the time of exam. She states that she started to develop nausea and epigastric pain approximately 10 PM on 01/08/2024. She took a dose of Pepto-Bismol and 8 mg p.o. Zofran which initially improved her symptoms. She went to bed around midnight and while lying flat started to experience intermittent bilateral shoulder pain, epigastric/substernal pain, and chest pain. She felt diaphoretic and tachycardic and was concerned with her father's history of CA at the age of 40 which is why she presented to the ED. She confirms her history of gastritis diagnosed on EGD last year, and does take pantoprazole daily. When asked about her recent diet, she states that she had general sells chicken for lunch yesterday and pizza for dinner. She has a Monster energy drink daily but denies tobacco use and recent alcohol use. She has been taking approximately 100 mg of ibuprofen daily for the past 2 weeks due to bilateral shoulder and neck pain. She has been seeing a chiropractor for cervical adjustments with the last adjustment being yesterday. Denies recent vision changes or current paresthesias. Since arrival to the ED she says her symptoms have significantly improved but have not resolved at this time. Denies recent pleuritic chest pain, cough, hemoptysis, vomiting, dysuria, hematuria, diarrhea, melena, lower extremity swelling, and recent trauma. Per chart review, the patient underwent EGD on 04/23/2023. She was noted to have a normal esophagus, small hiatal hernia, gastritis which was biopsied, and normal examined duodenum. Please refer to Dr. Bocanegra's attestation for any changes to the treatment plan Allergies Allergy/AdvReac Type Severity Reaction Status Date / Time chlorhexidine Allergy Intermediate Hives Verified 01/09/24 09:07 latex Allergy Intermediate Hives Verified 01/09/24 09:07 nickel Allergy Intermediate redness, Verified 01/09/24 09:07 irritation, rash oxycodone [From Percocet] Allergy Intermediate itching Verified 01/09/24 09:07 doxycycline AdvReac Intermediate GI UPSET Verified 01/09/24 09:07 Home Medications Medication Instructions Recorded Confirmed Type blood sugar diagnostic (OneTouch #10 ea 03/17/19 05/07/23 History Ultra Blue Test Strip) glucagon HCl 1 mg/mL solution for 1 mg IM UD PRN Hypoglycemia #2 ea 03/17/19 01/09/24 History injection lancets 33 gauge (OneTouch Delica #100 ea 03/17/19 05/07/23 History Lancets) levonorgestrel 21 mcg/24 hr (up to 20 mcg intrauterine CONT 03/17/19 01/09/24 History 8 years) 52 mg intrauterine device (Mirena) multivitamin (Daily Multi-Vitamin 1 tab PO QAM 03/17/19 01/09/24 History tablet) cholecalciferol (vitamin D3) 50 4,000 unit PO QAM #0 caps 06/01/20 01/09/24 Hist ory mcg (2,000 unit) capsule bupropion HCl 300 mg 24 hr tablet, 300 mg PO QAM 07/11/22 01/09/24 History extended release metformin 500 mg tablet 1,000 mg (2 x 500 mg) PO BID #360 07/12/22 01/09/24 Rx tabs blood-glucose meter (OneTouch #1 ea 08/07/22 05/07/23 Rx Ultra2 Meter kit) blood sugar diagnostic (OneTouch #100 ea 08/09/22 05/07/23 Rx Ultra Test strips) pen needle, diabetic 32 gauge x #400 ea 08/28/22 05/07/23 Rx 5/32" (BD Ida 2nd Gen Pen Needle) blood-glucose transmitter (Dexcom #1 ea 09/10/22 05/07/23 Rx G6 Transmitter device) blood-glucose sensor (Dexcom G6 #9 ea 01/14/23 05/07/23 Rx Sensor device) glucagon 3 mg/actuation nasal 3 mg intranasal ONCE PRN 04/17/23 01/09/24 History spray (Baqsimi) Hypoglycemia pantoprazole 40 mg tablet,delayed 40 mg PO QAM #90 tabs 08/25/23 01/09/24 Rx release atorvastatin 10 mg tablet 10 mg PO HS #90 tabs 12/25/23 01/09/24 Rx escitalopram oxalate 10 mg tablet 10 mg PO QAM 01/09/24 01/09/24 History insulin degludec 100 unit/mL (3 11 unit subcut QAM 01/09/24 01/09/24 History mL) subcutaneous pen (Tresiba FlexTouch U-100 insulin) Past Med/Surg History Problem List (Updated 01/10/24 @ 00:15 by Pedro Rai PA-C) Headache (Acute) Atypical chest pain (Acute) Headache Neck pain Abdominal pain, epigastric Vitamin D deficiency (Chronic) Simple goiter (Chronic) PCOS (polycystic ovarian syndrome) (Chronic) Obsessive compulsive disorder (Chronic) Chronic gastroesophageal reflux disease (Chronic) Dyslipidemia (Chronic) Depression (Chronic) Anxiety (Chronic) IUD contraception (Chronic) Type 2 diabetes mellitus (Chronic) Mild obstructive sleep apnea (Chronic) GERD (gastroesophageal reflux disease) Change in bowel habits History of ITP Overweight Elevated blood pressure reading Acute perforated appendicitis (Acute) Tachycardia (Acute) Abdominal pain Medical History GERD (gastroesophageal reflux disease) Epigastric pain Change in bowel movement Diabetes mellitus type 1 is type 1 but currently on metformin and insulin OCD (obsessive compulsive disorder) Depression Anxiety Hyperlipidemia Sleep apnea no device 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--platelets are WNL Surgical History Hx of appendectomy Hx of colonoscopy 2019 History of wisdom tooth extraction History of removal of cyst temporal cyst as a child History of History of esophagogastroduodenoscopy (EGD) Family History Grandmother (Maternal) Colorectal cancer Father Heart disease Diabetes Hypertension Myocardial infarction Sister Diabetes Brother Diabetes Mother Diabetes Anxiety Myocardial infarction Hypertension Grandmother (Paternal) Breast cancer Other No family history of adverse response to anesthesia Denies family history of Ovarian cancer Social History Smoking Status: Never smoker Second Hand Exposure: No; Do You Dip or Chew Tobacco: No; Tobacco Cessation Education Requested by Patient: No Hx Alcohol Use: Yes Alcohol type: beer Hx Substance Use: No Preferred Language: Somali Communication Ability: Effective Chore Tender Required: No Beliefs That Will Affect Care: None Current Living Situation: Family Current Living Situation Comment: , daughter current occupational status: employed Other Information That Helps Us Care for You: No Feels Safe at Home: Yes Safety Concerns: Feels Safe At This Time Assistive Devices: None and Glasses Assistive Devices Comment: to wear CPAP but does not Physical Exam Physical Exam: Physical Exam: General: In no acute distress, stated age, well-nourished, non-toxic appearing HEENT: Normocephalic, atraumatic, no scleral icterus, pupils around round, symmetrical, and reactive to light, dry mucus membranes, trachea midline, no thyromegaly Chest/Pulm: No respiratory distress, symmetrical chest expansion, clear breath sounds throughout Cardiac: tachycardic rate, regular rhythm, no murmurs noted Abdomen: Negative for ascites and bruising, normoactive bowel sounds, soft, non-tender to percussion throughout, significantly tender in the epigastric region on palpation without rebound tenderness, palpation in the LUQ exacerbates the epigastric pain, otherwise non-tender on exam Musculoskeletal: Symmetrical and without signs of acute trauma, upper and lower extremities with full ROM, no atrophy, spasticity, or flaccidity >No tenderness to palpation of the BL trapezoids or midline cervical tenderness >Having the patient flex her cervical spine exacerbates her BL cervical pain/headache Extremities: Radial, dorsalis pedis, and posterior tibial pulses are intact and symmetrical, no edema noted in the BL LE's Skin: Warm, dry, no rashes , lesions, or scars noted Neuro: Alert and oriented to person, place, month, year, and president, no focal defects, CN II-XII tested and intact, no tremors noted Psych: No acute distress, calm and cooperative during the exam Results & Data Results & Data Vital Signs (Past 12 Hours) Vital Signs Temp Pulse Pulse Resp BP BP Pulse Ox 01/09/24 09:52 120 H 01/09/24 09:33 122 H 16 114/78 99 01/09/24 08:42 114 H 19 116/74 96 01/09/24 07:30 118 H 14 121/91 93 01/09/24 07:30 125 H 16 121/91 95 01/09/24 07:09 111/88 01/09/24 06:21 123 H 14 107/65 90 01/09/24 05:32 145 H 01/09/24 05:31 98 01/09/24 05:31 98 01/09/24 05:26 36.8 C 154 H 20 136/79 95 O2 Del Method 01/09/24 09:52 01/09/24 09:33 Room Air 01/09/24 08:42 Room Air 01/09/24 07:30 Room Air 01/09/24 07:30 Room Air 01/09/24 07:09 01/09/24 06:21 Room Air 01/09/24 05:32 01/09/24 05:31 Room Air 01/09/24 05:31 Room Air 01/09/24 05:26 Room Air Laboratory Results Abnormal lab results 01/09/24 01/09/24 01/09/24 Range/Units 05:35 05:42 06:12 WBC 18.11 H (4.8-10.8) K/ul Neut # (Auto) 16.03 H (1.40-6.50) K/uL Lymph # (Auto) 0.85 L (1.20-3.40) K/uL [place] # (Auto) 1.01 H (0.11-0.59) K/uL D-Dimer 700 H* (0-500) ug/L FEU POC Chloride 98 L (101-112) mmol/L BUN/Creatinine Ratio 23.4 H (10-20) Glucose 178 H (70-99(Fasting)) mg/dl POC Glucose (other) 187 H (70-99) mg/dl POC Ioniz Calcium [place] 1.08 L (1.12-1.32) mmol/l Magnesium 1.5 L (1.7-2.4) mg/dl Urine Protein Trace H (Negative) Urine Glucose (UA) Trace H (Negative) Urine Blood 1+ H (Negative) Urine RBC (Auto) 3-5 H (0-2) /hpf U Epithel Cells (Auto) 3-5 H (0-2) /hpf Urine Bacteria (Auto) 1+ H (None Seen) MDMA (Ecstasy) Screen Pos H (Neg) Diagnostic Findings Abnormal lab results 01/09/24 01/09/24 01/09/24 Range/Units 05:35 05:42 06:12 WBC 18.11 H (4.8-10.8) K/ul Neut # (Auto) 16.03 H (1.40-6.50) K/uL Lymph # (Auto) 0.85 L (1.20-3.40) K/uL [place] # (Auto) 1.01 H (0.11-0.59) K/uL D-Dimer 700 H* (0-500) ug/L FEU POC Chloride 98 L (101-112) mmol/L BUN/Creatinine Ratio 23.4 H (10-20) Glucose 178 H (70-99(Fasting)) mg/dl POC Glucose (other) 187 H (70-99) mg/dl POC Ioniz Calcium [place] 1.08 L (1.12-1.32) mmol/l Magnesium 1.5 L (1.7-2.4) mg/dl Urine Protein Trace H (Negative) Urine Glucose (UA) Trace H (Negative) Urine Blood 1+ H (Negative) Urine RBC (Auto) 3-5 H (0-2) /hpf U Epithel Cells (Auto) 3-5 H (0-2) /hpf Urine Bacteria (Auto) 1+ H (None Seen) MDMA (Ecstasy) Screen Pos H (Neg) ECG Additional Comments: Sinus tachycardia Incomplete right bundle branch block Borderline ECG When compared with ECG of 02-AUG-2022 10:26, Nonspecific T wave abnormality, improved in Anterolateral leads Code Status & VTE Plan Code Status Full code VTE Prophylaxis Plan VTE Prophylaxis will be ordered: Yes Supervising Physician Co-Signing Physician Notes I personally saw and examined the patient. I verified all issa points and agree with Kash Carpenter PA-C with the following exceptions and/or additions: 38 year old female presents to the ER with new onset headache and chest pain. Previous history of tension headaches but only last minutes, never had a headache last hours. Chest pain resolved after treatment for GERD. O/E HS RRR, no murmurs, Chest CTAB, Abdo SNT, no facial droop, PERRL, no extremity weakness or sensory deficit A/P New onset headache - suspected tension type given history of this although currently much longer lasting and more severe than usual. Acetaminophen regularly, avoid NSAIDs due to GERD, use diazepam as muscle relaxant. Does not appear meningitic, no confusion to suggest encephalitis, no neck pain to suggest vertebral dissection GERD - chest pain now resolved with treatment for esophagitis/GERD, PE/dissection/CA ruled out. No further workup required. Avoid NSAIDs. PG Care Time/CCT Total # of Minutes Spent Total Time Spent with Patient: Total time spent is greater than 50% in coordination of care (as documented) at patient's floor/unit and/or counseling patient: Coding [place] [address] INT INP/OBS CARE 2/55MIN Patient Type Established Medical Decision Making Moderate Complexity Diagnoses Abdominal pain, epigastric R10.13 Neck pain M54.2 Tachycardia R00.0 Headache R51.9 Leukocytosis D72.829 Obsessive compulsive disorder F42.9 Type 2 diabetes mellitus E11.9
[2024-01-09] MEDS: MAGNESIUM SULFATE / D5W 1 GM/100 ML BAG IV SCH (10:21)
[2024-01-09] MEDS ORDERED: GLUCAGON FOR INJ 1 MG VIAL SQ PRN (10:48)
[2024-01-09] MEDS ORDERED: GLUCOSE 40% GEL 15 GM TUBE PO PRN (10:48)
[2024-01-09] MEDS ORDERED: CARBOHYDRATES FOR HYPOGLYCEMIA PO PRN (10:48)
[2024-01-09] MEDS ORDERED: GLUCOSE 10 TAB/TUBE PO PRN (10:48)
[2024-01-09] MEDS ORDERED: DEXTROSE 50% 50 ML SYRINGE IV PRN (10:48)
[2024-01-09] MEDS: SUCRALFATE 1 GM/10 ML UDC PO SCH (11:36)
[2024-01-09] MEDS: LACTATED RINGER'S 1,000 ML IV SCH (11:36)
[2024-01-09] MEDS: PANTOprazole 40 MG in SYRINGE 0 ML IV ONE (11:37)
[2024-01-09] MEDS: FAMOTIDINE 20 MG TAB PO ONE (11:37)
[2024-01-09] MEDS: LIDOCAINE 5% 1 PATCH TD STA (12:35)
[2024-01-09] MEDS: ACETAMINOPHEN 325 MG TAB PO PRN (12:36)
--- NOTE | 2024-01-09 12:51 | Electrocardiogram Report ---
Test Reason : Blood Pressure : / mmHG Vent. Rate : 143 BPM Atrial Rate : 143 BPM P-R Int : 132 ms QRS Dur : 102 ms QT Int : 284 ms P-R-T Axes : 068 004 057 degrees QTc Int : 438 ms Sinus tachycardia Incomplete right bundle branch block Borderline ECG When compared with ECG of 02-AUG-2022 10:26, Nonspecific T wave abnormality, improved in Anterolateral leads Confirmed by Tima Culver ([id number]) on 01/09/2024 12:50:55 PM Referred By: Confirmed By:Dante Culver
[2024-01-09] MEDS: INSULIN ASPART PER UNIT CHARGE SC SCH (14:23)
[2024-01-09] MEDS: diazePAM 5 MG/ML 10ML VIAL IV STA ×2 (15:56→16:30)
[2024-01-09] MEDS: FAMOTIDINE 20 MG TAB PO SCH (22:12)
[2024-01-09] MEDS: ATORVASTATIN 10 MG TAB PO SCH (22:12)
[2024-01-09] MEDS: ZOLPIDEM TARTRATE 5 MG TAB PO PRN (22:12)
[2024-01-10 07:30] LABS: Basophils # (auto) 0.03 K/uL (0.00-0.20); Basophils % (auto) 0.4 %; Eosinophils # (auto) 0.15 K/uL (0.00-0.50); Eosinophils % (auto) 1.9 %; Hematocrit (blood only) 33.9 % (37.0-47.0); Hemoglobin 11.2 g/dl (12.0-16.0); Immature Granulocytes # (auto) 0.02 K/uL (0.01-0.20); Immature Granulocytes % (auto) 0.3 %; Lymphocytes # (auto) 1.27 K/uL (1.20-3.40); Lymphocytes % (auto) 16.4 %; Mean Corpuscular Hemoglobin 30.5 pg (25.0-34.0); Mean Corpuscular Volume 92.4 fL (80.0-100.0); Mean Platelet Volume 9.8 fL (9.4-12.4); Monocytes # (auto) 0.67 K/uL (0.11-0.59); Monocytes % (auto) 8.7 %; Neutrophils # (auto) 5.59 K/uL (1.40-6.50); Neutrophils % (auto) 72.3 %; Platelet Count 247 K/uL (130-400); RDW Coefficient of Variation 11.8 % (11.5-14.5); RDW Standard Deviation 40.3 fL (36.4-46.3); Red Blood Count 3.67 M/uL (4.20-5.40); White Blood Count 7.73 K/ul (4.8-10.8)
[2024-01-10] MEDS: PANTOprazole 40 MG TAB PO SCH (07:38)
[2024-01-10] MEDS: buPROPion XL 300 MG TABCR PO SCH (07:38)
[2024-01-10] MEDS: ESCITALOPRAM OXALATE 10 MG TAB PO SCH (07:39)
[2024-01-10 07:43] LABS: Albumin Globulin Ratio 1.4 (0.9-2); Albumin Level 3.8 gm/dl (3.4-5.0); BUN Creatinine Ratio 18.9 (10-20); Bilirubin,Total 0.3 mg/dl (0.2-1.0); Calcium 8.1 mg/dl (8.6-10.3); Creatinine Clr Calc Pharmacy 164.4 ml/min; Est GFR (African American) 141.6 ml/min; Est GFR (Non-African American) 122.2 ml/min; Globulin 2.7 gm/dl (2.5-4.0); Potassium 3.8 mmol/L (3.5-5.1); Total Protein 6.5 gm/dl (6.0-8.3)
[2024-01-10] MEDS: LANTUS PER UNIT CHARGE SQ SCH (08:52)
[2024-01-10] MEDS: KETOROLAC TROMETHAMINE 15 MG/ML VIAL IV ONE (13:41)
--- NOTE | 2024-01-10 13:43 | Discharge Summary ---
Date of Service January 10, 2024 Admission HPI Per Admitting Provider Verito is a 38-year-old female with a past medical history significant for DM type II, hyperlipidemia, GERD, obsessive-compulsive disorder who presented to the [facility] ED on 01/09/2024 with complaints of severe epigastric pain with radiation to the left chest/back, nausea, and neck pain. She also reported that she has been tachycardic with heart rate in the 150s per her smart watch. On arrival to the ED she was noted to be tachycardic with heart rate in the 150s, but otherwise stable. Labs were significant for a leukocytosis of 18 with neutrophil predominance of 16, D-dimer of 700, ionized calcium of 1.08, magnesium 1.5, initial high-sensitivity troponin within normal limits, lipase within normal limits, UA with trace protein/glucose, 1+ blood, 3- 5 RBCs, 3-5 epithelial cells, and 1+ bacteria, full respiratory BioFire negative, and urine toxicology screen positive for DNA. EKG on arrival shows sinus tachycardia with heart rate in the 140s, incomplete right bundle branch block and improved T wave abnormality improved in the anteriorlateral leads compared to previous. CT of the head and brain without contrast was read as suboptimal evaluation of the brain due to the residual contrast from the same day chest CTA. However, no definite acute intracranial abnormality. CTA of the chest with without contrast was read as negative for pulmonary embolus. It did note a stable 2 mm right lower lobe pulmonary nodule. Fleischner Society guidelines suggest no follow-up is necessary for patients with a low or high risk of malignancy.Prior to admission the patient was given 2 L NSS, 2 doses of 0.5 mg IV Dilaudid, 1 mg IV Ativan, and 1 g IV Tylenol. Patient was lying in bed in no acute distress at the time of exam. She states that she started to develop nausea and epigastric pain approximately 10 PM on 01/08/2024. She took a dose of Pepto-Bismol and 8 mg p.o. Zofran which initially improved her symptoms. She went to bed around midnight and while lying flat started to experience intermittent bilateral shoulder pain, epigastric/substernal pain, and chest pain. She felt diaphoretic and tachycardic and was concerned with her father's history of ME at the age of 40 which is why she presented to the ED. She confirms her history of gastritis diagnosed on EGD last year, and does take pantoprazole daily. When asked about her recent diet, she states that she had [employer] chicken for lunch yesterday and pizza for dinner. She has a Monster energy drink daily but denies tobacco use and recent alcohol use. She has been taking approximately 100 mg of ibuprofen daily for the past 2 weeks due to bilateral shoulder and neck pain. She has been seeing a chiropractor for cervical adjustments with the last adjustment being yesterday. Denies recent vision changes or current paresthesias. Since arrival to the ED she says her symptoms have significantly improved but have not resolved at this time. Denies recent pleuritic chest pain, cough, hemoptysis, vomiting, dysuria, hematuria, diarrhea, melena, lower extremity swelling, and recent trauma. Per chart review, the patient underwent EGD on 04/23/2023. She was noted to have a normal esophagus, small hiatal hernia, gastritis which was biopsied, and normal examined duodenum. Please refer to Dr. Bocanegra's attestation for any changes to the treatment plan Principal Diagnosis gastritis, headache Discharge Exam Constitutional WD/WN, vitals as above Eyes PERRL, conjunctivae normal, anicteric sclerae Respiratory normal respiratory effort, lungs clear to auscultation Cardiovascular RRR, no murmur, no edema Gastrointestinal (Abdomen) tender to palpation in epigastric area. + bowel sounds Skin no rashes, warm and dry Psychiatric A+Ox3, euthymic affect Discharge Data Allergies Allergy/AdvReac Type Severity Reaction Status Date / Time chlorhexidine Allergy Intermediate Hives Verified 01/09/24 09:07 latex Allergy Intermediate Hives Verified 01/09/24 09:07 nickel Allergy Intermediate redness, Verified 01/09/24 09:07 irritation, rash oxycodone [From Percocet] Allergy Intermediate itching Verified 01/09/24 09:07 doxycycline AdvReac Intermediate GI UPSET Verified 01/09/24 09:07 Consultations 01/09/24 09:48 ED Decision to Admit Stat Ordered Studies Chest CTA 01/09/24 05:38 IMPRESSION: 1. No pulmonary embolus. 2. There is a stable 2 mm right lower lobe pulmonary nodule. Fleischner Society Guidelines suggest no follow-up is necessary for patients with a low or high risk of malignancy. Electronically signed by: Yadi Hill MD 01/09/24 06:[address] 01/09/24 06:25 Impression: Suboptimal evaluation the brain due to the residual contrast from the same day chest CTA. However, no definite acute intracranial abnormality. Electronically signed by: Misbah Mello M.D. 01/09/2024 8:56 AM 01/10/24 07:01 01/10/24 07:01 Vital Signs Temp 36.8 C 01/10/24 14:09 Pulse 120 H 01/10/24 14:09 Resp 18 01/10/24 14:09 BP 113/77 01/10/24 14:09 Pulse Ox 96 01/10/24 14:09 O2 Del Method Room Air 01/10/24 11:37 Hospital Course (1) Abdominal pain, epigastric: Patient presented to ED on 01/08 with multiple complaints including severe epigastric pain, nausea, radiation of pain to substernal area & possible left sided chest pain, cervical neck pain w/ b/l shoulder pain. She underwent CTA chest and CT head of brain that were negative. Her cardiac workup had been unremarkable including troponin WNL, EKG w/o acute ST segment or T wave changes. She had [employer] chicken and pizza on 01/07 which she believes exacerbated her symptoms. She had also been taking 800mg of ibuprofen daily for 2 weeks now. She was started on Carafate 4 times daily, Pantoprazole twice daily, Pepcid/Tylenol as needed. Following initiation of these medications her symptoms were resolved. She was advanced to regular diet which she tolerated prior to d/c. She was d/c'ed home on Carafate 4 times daily and pantoprazole BID. Her labs were stable at discharge. (2) Neck pain: Patient has been experiencing bilateral cervical neck pain with radiation into the bilateral trapezoid muscles for 2+ weeks. She was seen by chiropractor 01/07 and had adjustment. She denied neurologic symptoms following adjustment. Neurological exam nonfocal. Likely musculoskeletal pain. Ice and tylenol prn outpatient. (3) Tachycardia: Patient presented with sinus tachycardia with heart rate in the 150s. Improved to 100-110s. Past medical hx includes tachycardia. Was likely exacerbated due to pain, low magnesium, and dehydration. She was given 2g IV mag sulfate to assist with tachycardia and headache. Cardiac workup unremarkable. Magnesium improved from 1.5 to 2 upon discharge. (4) Headache: Patient started to develop a headache after going to bed last night. She was given 1g IV Tylenol in ED that did cause relief. CT of head/brain was negative for acute findings. No acute focal neurologic exam findings. Spoke with Dr. Ibarra who recommended conservative management. Patient was recommended to avoid NSAID's for management of headache. She states that NSAIDs usually help her headaches outpatient. Given she was on high dose GI therapy, she was given small dose of IV toradol prior to discharge to help her symptoms. Suspect headache is due to neck/shoulder issues vs rebound headache from ibuprofen usage vs stress of hospitalization. She denied any visual or hearing symptoms at time of discharge. likely tension headache. (5) Obsessive compulsive disorder: Continue bupropion (6) Type 2 diabetes mellitus: Resume outpatient diabetic medications upon discharge Total Time Total Time Spent Total Time Spent (In Minutes): 35 Total Time Includes: Examination of the Patient, Discharge Planning and Medication Reconciliation Discharge Plan Discharge Items Patient Disposition: Home - Self-Care Reason For Visit: EPIGASTRIC PAIN, BL SHOLDER PAIN, NAUSEA, CHEST PA Discharge Diagnosis: gastritis, headache Activity: Resume your previous activity Non-emergency contact: Primary Care Provider and [employer] Call non-emergency contact if: you have any medication questions, your symptoms worsen and your pain is worsening Follow-up/Referrals: Andry Varela, DO [Physician] - (follow up on discharge) Jesse Armstrong [Primary Care Provider] - Diet: Carb Consistent or DM2 Addtl Attending Provider Instructions: Mrs. Olivares, You were hospitalized for abdominal/chest pain, nausea, and vomiting. You underwent a Chest cat scan that was negative and a chest x-ray that was un- revealing regarding your symptoms. We did give you pantoprazole and Carafate that helped your symptoms. You were also experiencing a headache that was treated with Tylenol and Toradol. Please see recommendations below regarding your discharge. 1. Please take Carafate 4 times daily. Your next dose will be this evening 01/09. -This should be taken one hour prior to meals and prior to bedtime. -This should be continued for 4 weeks or until further recommended by PCP/GI 2. We have increased your pantoprazole to twice a day. Your next dose will be this evening 01/09. 3. You may use Tums or Pepcid over the counter as needed for breakthrough symptoms. 4. Try to avoid foods that irritate your symptoms. This could include citric, acidic, or spicy foods. Other irritants include caffeine and alcohol. 5. Please try to avoid NSAIDs as they also irritate your gastric lining. 6. Please continue to use Tylenol as needed for your headache. 7. You may resume your diabetic medications as previously prescribed. 9. Please continue bupropion for your OCD. Please follow up with GI upon discharge. Please follow up with PCP within 1-2 weeks of discharge. If you start to develop any chest pain, shortness of breath, severe abdominal pain, nausea, vomiting, or worsening headache (visual or hearing changes) please report to the ER for further evaluation. Sincerely, Loly Sutton PA-C Pending Studies at Discharge: No Stand-Alone Forms: My [facility] [employer], Smoking Cessation Medications and DC Order Prescriptions: New sucralfate [Carafate] 1 gram tablet 1 g PO QID Qty: 120 0RF pantoprazole 40 mg tablet,delayed release (DR/EC) 40 mg PO BID Qty: 60 0RF Continued cholecalciferol (vitamin D3) 50 mcg (2,000 unit) capsule 4,000 unit PO QAM Qty: 0 Rx Instructions: PER PT "HAVEN'T TAKEN FOR ABOUT A WEEK, NEED TO GET MORE". metformin 500 mg tablet 1,000 mg PO BID Qty: 360 3RF Rx Instructions: ON HOLD FOR 2 DAYS, HAD CT DYE atorvastatin 10 mg tablet 10 mg PO HS Qty: 90 0RF glucagon HCl 1 mg recon soln 1 mg IM UD PRN (Reason: Hypoglycemia) Qty: 2 Mirena 20 mcg/24 hours (5 yrs) 52 mg intrauterine device 20 mcg IU CONT multivitamin [Daily Multi-Vitamin] tablet 1 tab PO QAM bupropion HCl 300 mg tablet extended release 24 hr 300 mg PO QAM Baqsimi 3 mg/actuation spray,non-aerosol 3 mg intranasal ONCE PRN (Reason: Hypoglycemia) Patient Comments: has never used escitalopram oxalate 10 mg tablet 10 mg PO QAM insulin degludec [Tresiba FlexTouch U-100] 100 unit/mL (3 mL) insulin pen 11 unit SUBCUT QAM Discontinued pantoprazole 40 mg tablet,delayed release (DR/EC) 40 mg PO QAM Qty: 90 3RF No Action (DME) blood-glucose meter [OneTouch Ultra2 Meter] Kit See Rx Instructions .Route Qty: 1 0RF Rx Instructions: As directed (DME) OneTouch Ultra Test Strip See Rx Instructions .Route Qty: 100 0RF Rx Instructions: Test blood sugar 5 times a week (DME) pen needle, diabetic [BD Ida 2nd Gen Pen Needle] 32 gauge x 5/32" needle See Rx Instructions .Route Qty: 400 3RF Rx Instructions: Use with a new pen needle 4x a day (DME) Dexcom G6 Sensor Device See Rx Instructions .Route Qty: 9 3RF Rx Instructions: Change every 10 days (DME) lancets [OneTouch Delica Lancets] 33 gauge misc See Dose Instructions .ROUTE .MEDSUPPLY Qty: 100 Rx Instructions: test blood sugars 4 times per day (DME) OneTouch Ultra Blue Test Strip strip See Dose Instructions .ROUTE .MEDSUPPLY Qty: 10 Hold Instructions: new meter Rx Instructions: test blood sugars 4 times daily (DME) Dexcom G6 Transmitter Device See Rx Instructions .Route Qty: 1 3RF Rx Instructions: Change every 90 days Discharge Orders: Discharge Order (Routine); Ordered 01/10/24 Ordered By: Loly Sutton Admission Data Admit Date/Time: 01/09/24 10:42 Attending Provider: Selwyn Lopez Admit Provider: Mitch Bocanegra Primary Care Provider: Jesse Armstrong Other Providers: Hunter Quick; Mitch Buckley; Miky Mclean; Justen Simons; Rob Mondragon; Denise Latham; Sahra Sunshine; Heike Jaquez; Kash Carpenter; Garett Trevino; Penelope Monaco; Tima Virk; Mitch Bocanegra; Misbah Wu; Dawna Acuna; Sandie Abreu; Sandie Hays; Loly Sutton; Arvin Moody; Nel De La Paz; Selwyn Lopez; Elvis Fleming; Kayla Cary; Cristiane Smith; Mahsa Harris; Ralph Estrada; Mina Valerio; Miky Kelly; Justen Jean Baptiste; Kemi Luo; Tamica Huang Other Interventions: Discharge Summary Assessment (RN) Last Done: 01/10/24 14:09 Supervising Physician Co-Signing Physician Notes I personally saw and examined the patient. I verified all issa points and agree with MICHEL Sutton with the following exceptions and/or additions: 38 year old female presents to the ER with new onset headache and chest pain. Previous history of tension headaches but only last minutes, never had a headache last hours. Chest pain resolved after treatment for GERD. O/E HS RRR, no murmurs, Chest CTAB, Abdo SNT, no facial droop, PERRL, no extremity weakness or sensory deficit A/P New onset headache - symptoms improved. Discharge insructions as above. GERD - chest pain now resolved with treatment for esophagitis/GERD, PE/dissection/ME ruled out. No further workup required. Avoid NSAIDs. Coding Level of Care Code 99609 INP/OBS DISCH >30 MIN Diagnoses Abdominal pain, epigastric R10.13 Neck pain M54.2 Tachycardia R00.0 Headache R51.9 Obsessive compulsive disorder F42.9 Type 2 diabetes mellitus E11.9
[2024-01-13 16:27] LABS: MDA negative; MDEA negative; MDMA (Ecstasy) Urine, Confirm negative
== END 2024-01-10 15:17 | disposition home or self-care (01) ==
LOC: EDINP 05:23 → ED 05:23 → SUATTDRO 10:42 → 2N 10:54